=== PATIENT | female | born 1955 | race Hispanic/Latino ===

== ENCOUNTER 2024-05-24 11:11 | Emergency (ER) | payer OTHER ==
--- OUTSIDE RECORDS SUMMARY | 2024-05-24 11:14 | XMS REPORT | Continuity of Care Document ---
Author Name Unknown Address [address] [facility] [address] [place] [address] [facility] thconnect Address [address] [facility] [address] [place] [address] Care Team Providers Care Director Of Strategic Programs Name Role Phone Pcp, Patient Does Not Have A Primary Care Physic lauren Urvashi Barfield PA-C Attending Clinician [phone] Nico Young MD Attending Clinician [phone] NICO YOUNG Attending Clinician Unavailable NICO YOUNG Attending Clinician Unavailable NICO YOUNG Attending Clinician Unavailable Catia Corey RN Attending Clinician Unavailab Jess Lux Attending Clinician [phone] JESS MCGOWAN Attending Clinician Unavailable JESS MCGOWAN Attending Clinician Unavailable [facility] Attending Clinician Unavailable KIMBER_GCADEN_Niaa_S Attending Clinician Unavaila joel LAL Attending Clinician Unavailable JESS MCGOWAN Admitting Clinician Unavailable KIMBER_NENA_Niaa_S Admitting Clinician Unavailjenni LAL Admitting Clinician Unavailable Payers Payer Name Policy Type Policy Number Effective Date Expirati on Date Source [facility] [id number] 2023 00:00:00 [facility] [employer] (MEDICARE REPLACEMENT HMO) [id number] 2021 00:00:00 Problems Condition Name Condition Details Condition Category Status Onset Date Resolution Date Last Treatment Date Treating Clinician Comments Source Malignant neoplasm of overlappin g sites of cervix uteri Malignant neoplasm of overlappin g sites of cervix uteri Disease Active 2023-05 2-10 00:00: 00 [facility] Cervical mass Cervical mass Disease Active 2023-05 1-13 00:00: 00 [facility] Female stress incontinen ce Female stress incontinen ce Disease Active 2023-05 0-09 00:00: 00 [facility] Abnormal vaginal bleeding Abnormal vaginal bleeding Disease Active 3-06 00:00: 00 [facility] Hypomagnes emia Hypomagnes emia Disease Active 4-19 00:00: 00 [facility] 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 Disease Active 4-19 00:00: 00 [facility] Pelvic pain Pelvic pain Disease Active 6- 00:00: 00 [facility] Body mass index 40.0-44.9, adult Body mass index 40.0-44.9, adult Disease Recurre nce 0 2-03 00:00: 00 [facility] Pain of both hip joints Pain of both hip joints Disease Active 0 9-15 00:00: 00 [facility] Bilateral knee pain Bilateral knee pain Disease Active 0 9-15 00:00: 00 [facility] Coronary atheroscle rosis of [place] coronary artery Coronary atheroscle rosis of [place] coronary artery Disease Active 0 9-15 00:00: 00 [facility] 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 Disease Recurre nce 0 9-15 00:00: 00 [facility] Benign hypertensi on with chronic kidney disease Benign hypertensi on with chronic kidney disease Disease Active 0 3-09 00:00: 00 [facility] 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 Disease Active 0 3-09 00:00: 00 [facility] 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 Disease Active 3-09 00:00: 00 [facility] Anemia of chronic disease Anemia of chronic disease Disease Active 12-23 00:00: 00 [facility] Chronic low back pain Chronic low back pain Disease Active 12-23 00:00: 00 [facility] Gastro-eso phageal reflux disease without esophagiti s Gastro-eso phageal reflux disease without esophagiti s Disease Active 12-23 00:00: 00 [facility] Dysthymia Dysthymia Disease Active 12-23 00:00: 00 [facility] Generalize d anxiety disorder Generalize d anxiety disorder Disease Active 12-23 00:00: 00 [facility] Mixed hyperlipid emia Mixed hyperlipid emia Disease Active 12-23 00:00: 00 [facility] Morbid obesity Morbid obesity Disease Active 12-23 00:00: 00 [facility] Nicotine dependence Nicotine dependence Disease Active 12-23 00:00: 00 [facility] Allergies, Adverse Reactions, Alerts Allergy Name Allergy Type Status Severity Reaction(s) Onset Date Inactive Date Treating Clinician Comments Source NO KNOWN ALLERGIE S Drug Class Active [facility] Social History Social Habit Start Date Stop Date Quantity Comments Source History of tobacco use 1994-03-24 00:00:00 Cigarette Smoker [facility]arettes smoked current (pack per day) - Reported 2024-03-24 00:00:00 2024-03-24 00:00:00 [facility] Cigarette pack-years 2024-03-24 00:00:00 2024-03-24 00:00:00 [facility] Tobacco use and exposure 2024-03-24 00:00:00 2024-03-24 00:00:00 Smokeless tobacco non-user [facility] Alcoholic beverage intake 2024-03-24 00:00:00 2024-03-24 00:00:00 Current drinker of alcohol (finding) [facility] History of Social function 2024-03-24 00:00:00 2024-03-24 00:00:00 [facility] Alcohol Comment 2024-03-24 00:00:00 2024-03-24 00:00:00 occasionally [facility] Sex assigned at 1955 00:00:00 1955 00:00:00 [facility] Smoking Status Start Date Stop Date Source Tobacco smoking consumption unknown [facility] Smokes tobacco daily 2024-03-24 00:00:00 [facility] Medications Ordered Medication Name Filled Medication Name Start Date Stop Date Current Medication? Ordering Clinician Indication Dosage Frequency Signature (SIG) Comments Components Source ondansetron 8 mg tablet 05-15 00:00: 00 Yes [id number] 8mg Take 1 tablet by mouth every 8 (eight) hours as needed for Nausea and Vomiting (N/V). [facility] ondansetron 8 mg tablet 2023-05- 00:00: 00 05-15 00:00 :00 No [id number] 8mg Take 1 tablet by mouth every 8 (eight) hours as needed for Nausea and Vomiting (N/V). [facility] oxyCODONE 5 mg immediate release tablet 2023-05- 00:00: 00 04-29 05:59 :00 Yes [id number] 5mg Take 1 tablet by mouth every 4 (four) hours as needed for Pain (scale 7-10) for up to 7 days. Indication s: chronic pain, cancer related pain [facility] fludeoxyglu cose F-18 (FDG) injection 10 millicurie 2023-05 15:20: 00 04-02 15:15 :00 No [id number] 10mCi 10 millicurie , Intravenou s, ONCE, 1 dose, On Danyelle 04/02/24 at 0930, Routine [facility] gadobenate dimeglumine (MULTIHANCE -20 mL) injection 20 mL 2023-05 21:30: 00 03-25 21:22 :00 No [id number] 20mL 20 mL, Intravenou s, ONCE, 1 dose, On Sat03/25/24 at 1530, Routine [facility] LORazepam (ATIVAN) tablet 2023-05 19:15: 00 03-26 10:04 :56 No PRN, Starting on Sat03/25/24 at 1315, Until Sat03/26/24 at 0404, Routine, Intra-op [facility] multivit-mi n/ferrous fumarate (MULTI VITAMIN ORAL) 2023-05 16:59: 36 Yes 1{tbl} Take 1 tablet by mouth in the morning. [facility] Cyanocobala min 1,000 mcg tablet 2023-05 16:59: 36 04-21 00:00 :00 No 2000ug Take 2 tablets by mouth in the morning. [facility] hyoscyamine 0.125 mg tablet 2023-05 16:59: 36 04-21 00:00 :00 No .125mg Take 1 tablet by mouth 4 (four) times daily as needed. 2 tablets QiDprn [facility] Iron, Carbonyl 45 mg Tab 2023-05 16:59: 36 04-21 00:00 :00 No 45mg Take 45 mg by mouth in the morning. [facility] metroNIDAZO LE 500 mg tablet 2023-05 00:00: 00 04-21 00:00 :00 No 500mg Take 1 tablet by mouth every 12 (twelve) hours. [facility] levothyroxi ne 25 mcg tablet 07 00:00: 00 Yes 25ug Take 1 tablet by mouth in the morning. [facility] atorvastati n 10 mg tablet 10-15 00:00: 00 Yes 10mg Take 1 tablet by mouth at bedtime. [facility] pioglitazon e 30 mg tablet 10-15 00:00: 00 Yes 30mg Take 1 tablet by mouth in the morning. [facility] traMADoL 50 mg tablet 10-15 00:00: 00 Yes 50mg Take 1 tablet by mouth 2 (two) times daily as needed. [facility] gabapentin 300 mg capsule 10-15 00:00: 00 10-16 04:59 :00 No 600mg Take 2 capsules by mouth in the morning and 2 capsules in the evening. [facility] DULoxetine 30 mg capsule 10-15 00:00: 00 10-16 04:59 :00 No 30mg Take 1 capsule by mouth in the morning. [facility] metFORMIN 500 mg tablet 09-12 00:00: 00 Yes 1000mg Take 2 tablets by mouth in the morning and 2 tablets in the evening. [facility] benzalkoniu m chloride 0.13 % Towl 07-16 00:00: 00 Yes Dispense One Glucometer to Check Blood Glucose TID to monitor DM. [facility] hydrOXYzine 25 mg capsule 07-16 00:00: 00 Yes 25mg Take 1 capsule by mouth as needed. Daily prn [facility] blood sugar diagnostic (YOKASTA BLOOD GLUCOSE TEST STRIP MISC) 07-16 00:00: 00 Yes Dispense 100 Test Strips to Check Blood Glucose TID to monitor DM. [facility] naproxen (NAPROSYN) 500 mg tablet 09-08 00:00: 00 04-21 00:00 :00 No [id number] 500mg Take 1 tablet by mouth 2 (two) times daily with meals. [facility] Immunizations Ordered Immunization Name Filled Immunization Name Date Status Comments Source SARS-COV-2 COVID-19 MODERNA 12+ YRS VACCINE 2020-08-07 00:00:00 Completed [facility] SARS-COV-2 COVID-19 MODERNA 12+ YRS VACCINE 2020-07-10 00:00:00 Completed [facility] Vital Signs Vital Name Observation Time Observation Value Comments S meg Systolic blood pressure 2024-04-21 17:23:00 121 mm[Hg] [facility] Diastolic blood pressure 2024-04-21 17:23:00 68 mm[Hg] [facility] Heart rate 2024-04-21 17:23:00 94 /min [facility] Body temperature 2024-04-21 17:23:00 36.06 Marilee [facility] Respiratory rate 2024-04-21 17:23:00 18 /min [facility] Body height 2024-04-21 17:23:00 153.8 cm [facility] Body weight 2024-04-21 17:23:00 95.618 kg [facility] BMI 2024-04-21 17:23:00 40.42 kg/m2 [facility] Oxygen saturation in Arterial blood by Pulse oximetry 2024-04-21 17:23:00 97 /min [facility] Systolic blood pressure 2024-03-25 19:12:00 121 mm[Hg] [facility] Diastolic blood pressure 2024-03-25 19:12:00 75 mm[Hg] [facility] Heart rate 2024-03-25 19:12:00 94 /min [facility] Respiratory rate 2024-03-25 19:12:00 14 /min [facility] Oxygen saturation in Arterial blood by Pulse oximetry 2024-03-25 19:12:00 94 /min [facility] Systolic blood pressure 2024-03-24 16:34:00 116 mm[Hg] [facility] Diastolic blood pressure 2024-03-24 16:34:00 64 mm[Hg] [facility] Heart rate 2024-03-24 16:34:00 92 /[facility] 2024-03-24 16:34:00 36.06 Marilee [facility] Respiratory rate 2024-03-24 16:34:00 16 /min [facility] Body height 2024-03-24 16:34:00 153.8 cm [facility] weight 2024-03-24 16:34:00 100.109 kg [facility] BMI 2024-03-24 16:34:00 42.32 kg/m2 [facility] Oxygen saturation in Arterial blood by Pulse oximetry 2024-03-24 16:34:00 94 /min [facility] Procedures Procedure Date / Time Performed Performing Clinicia n Source PET TUMOR IMAGING SKULL TO THIGH 2024-04-02 16:50:00 Monica [facility] PET TUMOR IMAGING SKULL TO THIGH 2024-04-02 16:50:00 Monica [facility] POCT GLUCOSE (AUTOMATED) 2024-04-02 15:03:00 Monica [facility] MR PELVIS W WO CONTRAST 2024-03-25 21:31:00 Monica [facility] SURGICAL PATHOLOGY EXAM 2024-03-24 18:02:00 Peculiar, [facility] Encounters Start Date/Time End Date/Time Encounter Type Admission Type Attending Clinicians Care Facility Care Department Encounter ID Source 2024-05-15 00:00:00 2024-05-15 13:15:41 Refill Urvashi Barfield [facility] ([facility]) 1.2.840.114 350.1.13.10 4.2.7.2.686 [id number] [facility] 2024-04-24 00:00:00 2024-04-24 11:34:33 Case Management Urvashi Barfield [facility] ([facility]) 1.2.840.114 350.1.13.10 4.2.7.2.686 [id number] [facility] 2024-04-21 00:00:00 2024-04-21 16:24:16 Case Management Urvashi Barfield [facility] ([facility]) 1.2.840.114 350.1.13.10 4.2.7.2.686 [id number] [facility] 2024-04-21 11:00:00 2024-04-21 11:30:00 Office Visit Nico Young [facility] ([facility]) 1.2.840.114 350.1.13.10 4.2.7.2.686 [id number] [facility] 2024-04-21 11:00:00 2024-04-21 11:00:00 Outpatient R NICO YOUNG, NICO CHAHAL [facility] [id number] [facility] 2024-04-13 00:00:00 2024-04-13 09:27:54 Telephone Catia Corey Emily M [facility] ([facility]) 1.2.840.114 350.1.13.10 4.2.7.2.686 [id number] [facility] 2024-04-03 00:00:00 2024-04-03 10:45:33 [facility] 1.2.840.114 350.1.13.10 4.2.7.2.686 [id number] [facility] 2024-04-02 08:37:04 2024-04-02 23:59:00 Hospital Encounter Jess Mcgowan [facility] ([facility]) 1.2.840.114 350.1.13.10 4.2.7.2.686 [id number] [facility] 2024-04-02 08:36:57 2024-04-02 08:36:57 Hospital Encounter Jess Mcgowan [facility] ([facility]) 1.2.840.114 350.1.13.10 4.2.7.2.686 [id number] [facility] 2024-03-25 13:00:49 2024-03-25 23:59:00 Outpatient R JESS MCGOWAN [facility]ATH[facility] [id number] [facility] 2024-03-25 13:00:49 2024-03-25 23:59:00 Hospital Encounter Jess Mcgowan [facility] ([facility]) 1.2.840.114 350.1.13.10 4.2.7.2.686 [id number] [facility] 2024-03-24 13:30:00 2024-03-24 13:30:00 Office Visit Nico Young [facility] ([facility]) 1.2.840.114 350.1.13.10 4.2.7.2.686 [id number] [facility] 2024-03-24 13:00:00 2024-03-24 13:15:00 Yeast Pumper Visit [facility] Nico Young [facility] ([facility]) 1.2.840.114 350.1.13.10 4.2.7.2.686 [id number] [facility] 2024-03-24 13:30:00 2024-03-24 12:00:14 Outpatient NICO BRADY GWYN RICHARDSON, GWYN [facility] [id number] [facility] 2023-08-16 00:00:00 2023-08-16 00:00:00 Outpatient GC_GCBZW_Ka diyala_S PRIV PRIV [id number] [facility] 2023-08-15 00:00:00 2023-08-15 00:00:00 Outpatient GC_GCBZW_Ka diyala_S PRIV PRIV [id number] [facility] 2023-07-19 00:00:00 2023-07-19 00:00:00 Outpatient GC_GCBZW_Ka diyala_S PRIV PRIV [id number] [facility] 2021-12-14 00:00:00 2021-12-14 00:00:00 Outpatient YUMIKOEK_JORDAN LINDER NMLYNETTE [facility] [id number] [facility] 2021-11-24 03:35:00 2021-11-24 03:35:00 Outpatient DMG DMG [id number] [facility] 2021-11-24 00:00:00 2021-11-24 00:00:00 Outpatient DMG DMG [id number] [facility] 2021-06-12 12:00:00 2021-06-12 12:00:00 [place] [facility] [id number] [facility] Results Test Description Test Time Test Comments Results Result Co mments Source [facility]
[2024-05-24] MEDS ORDERED: NA CHLORIDE 0.9% 250 ML ONE ×2 (11:50→14:22)
[2024-05-24 11:55] LABS: Absolute Basophils 0.1 K/uL (0-0.5); Absolute Eosinophils 0.1 K/uL (0-0.5); Absolute Lymphocytes (CBC) 1.4 K/uL (0.7-4.9); Absolute Monocytes 0.9 K/uL (0.1-1.3); Absolute Neutrophil 21.2 K/uL (1.8-8.0); Basophils % 0.3 % (0-1.3); Eosinophils % 0.3 % (0-4.4); Hematocrit 22.5 % (36.0-45.0); Hemoglobin 7.3 g/dL (12.0-15.0); Lymphocytes % 5.9 % (15.3-44.8); MCHC 32.3 g/dL (32.0-36.0); MCV 80.6 fL (80-100); MPV 7.5 fL (7.6-11.3); Monocytes % 3.9 % (3.3-12.3); Neutrophils % 89.6 % (41.7-73.7); Platelets 511 thou/uL (152-406); Red Cell Distribution Width 17.2 % (12.1-15.2)
[2024-05-24 12:10] LABS: ALT/SGPT < 14 U/L (13-56); AST/SGOT 27 U/L (15-37); Albumin 1.9 g/dL (3.4-5.0); Albumin/Globulin Ratio 0.4 (1.1-1.8); Alkaline Phosphatase 97 U/L (45-117); Anion Gap 13.8 mEq/L (5.0-15.0); BUN Blood Urea Nitrogen 36 mg/dL (7-18); Bicarbonate 19 mEq/L (21-32); Bilirubin Direct 0.2 mg/dL (0-0.2); Bilirubin Indirect, Calculated 0.3 mg/dL (0.2-0.8); Bilirubin Total 0.5 mg/dL (0.2-1.0); Globulin 4.9 g/dL (2.3-3.5); Glomerular Filtration Rate 16 ml/min (=/>90); Glucose Level 115 mg/dL (74-106); Potassium 4.8 mEq/L (3.5-5.1); Protein, Total 6.8 g/dL (6.4-8.2); Sodium Level 130 mEq/L (136-145)
[2024-05-24] MEDS ORDERED: NA CHLORIDE 0.9% 100 ML ONE (13:24)
[2024-05-24] MEDS ORDERED: PIPERACIL/TAZO 3.375 GM VIAL IV ONE (13:24)
[2024-05-24 13:26] LABS: Blood Morphology Comment NOTED (NOT SEEN); Differential Total Cells Count 100; Lymphocytes 7 % (15-42); Monocytes 2 % (0-10); Platelet Estimate INCR; Platelets Clumped MANY; Rouleau NOTED; Segmented Neutrophils 91 % (40-80)
--- NOTE | 2024-05-24 13:28 | RAD REPORT ---
EXAMINATION: CT Abdomen Pelvis Wo Contrast CLINICAL INDICATION: Female, 68 years old. vaginal bleeding, known stage III cervical cancer, abd dora n TECHNIQUE: CT abdomen and pelvis was performed, without IV contrast, as per department protocol. Axia l, sagittal and coronal reconstructions were obtained. One or more of the following dose reduction techniques were used: Automated exposure control, adjustment of the mA and kV according to the patien t size, and iterative reconstruction. Unless otherwise specified, incidental findings do not require dedicated imaging follow-up. COMPARISON: No prior exam. FINDINGS: The lack of intravenous contrast limits the sensitivity of this exam for evaluation of solid visceral organs, vascular structures, and retroperitoneum. LOWER CHEST: The visualized lung bases are clear. LIVER: Normal in size and contour. No focal lesion. BILIARY SYSTEM: No suspicious abnormalities. SPLEEN: Normal size. No focal lesion. PANCREAS: No mass, ductal dilation, or austyn-pancreatic fluid. ADRENALS: Normal; no mass. KIDNEYS AND URETERS: Normal size and contour. No hydronephrosis. URINARY BLADDER: Pericystic fat stranding asymmetric towards the right pelvis. Decompressed bladder l umen limits evaluation. GASTROINTESTINAL TRACT: No evidence of bowel obstruction, significant free fluid, free air or abscess . APPENDIX: Normal appendix. LYMPH NODES: No lymphadenopathy. MUSCULOSKELETAL: No acute or suspicious osseous abnormality. ADDITIONAL FINDINGS: Bulky mass involving the cervix and lower uterine segment, with heterogeneous co mponents of gas centrally. The mass measures 10.4 x 8.3 x 9.4 cm in greatest CC, AP, and transverse dimensions. Heterogeneous fluid and locules of gas extending along the endometrial cavity, reaching c lose to the anterior serosal surface of the uterus. Please see sagittal image 89 series 203. Asymmetric fat stranding also involves the right adnexal region with few locules of gas involving the right adnexal structures including a small air-fluid level, see axial image 87 series 201 IMPRESSION: Pericystic fat stranding extending to the right adnexal region, where few locules of gas are present. Locules of gas are also present along the endometrial cavity extending towards the anterior serosal surface. Findings suggest combination of cystitis and pelvic inflammatory disease. Bulky mass at the 10.4 cm in greatest dimension involving the cervix and lower uterine segment, deidra tible with known diagnosis of cervical malignancy. Distal colonic diverticulosis. THIS REPORT CONTAINS FINDINGS THAT MAY BE CRITICAL TO PATIENT CARE. The findings were verbally commun icated via telephone to Lewis Betancourt MD on 05/24/2024 1:25 PM.
--- NOTE | 2024-05-24 13:32 | ER ---
Nurse's Notes [facility] Name: Christa Jackson Age: 68 yrs Sex: Female : 1955 Arrival Date: 05/24/2024 Time: 11:11 Bed 3 Private MD: Diagnosis: Abnormal uterine and vaginal bleeding, unspecified;Anemia, unspecified;Female pelvic inflammatory disease, unspecified Presentation: 05/24 11:11 Acuity: NOMAN 2 aa5 11:11 Chief complaint: EMS states: diagnosed with cervical cancer x 2 months ago, normally aa5 has intermittent vaginal spotting but reports heavy vaginal bleeding with clots since last night. EMS reports BP 70/30, HR 110 upon scene arrival and BP increased after 600mls NS bolus, pt was also administered Ketamine 10 mg IVP. 11:11 Coronavirus screen: At this time, the client does not indicate any symptoms associated aa5 with coronavirus-19. Ebola Screen: Patient denies travel to an Ebola-affected area in the 21 days before illness onset. Initial Sepsis Screen: Does the patient meet any 2 criteria? HR > 90 bpm. Does the patient have a suspected source of infection? No. Patient's initial sepsis screen is negative. Risk Assessment: Do you want to hurt yourself or someone else? Patient reports no desire to harm self or others. Onset of symptoms was May 23, 2023. 11:11 Method Of Arrival: [facility]: [facility] aa5 Historical: - Allergies: 11:11 No Known Allergies; aa5 - PMHx: 11:11 Depression; Diabetes - IDDM; High Cholesterol; Hypertension; Cervical cancer (stage 3) aa5 (Hypertension); - Immunization history:: Adult Immunizations unknown. - Infectious Disease History:: Denies. - Social history:: Smoking status: Patient reports the use of cigarette tobacco products, denies chronic smoking, but will smoke occasionally. - Family history:: not pertinent. - Hospitalizations: : No recent hospitalization is reported. Screenin:11 [facility] ED Fall Risk Assessment (Adult) History of falling in the last 3 months, aa5 including since admission No falls in past 3 months (0 pts) Confusion or Disorientation No (0 pts) Intoxicated or Sedated No (0 pts) Impaired Gait No (0 pts) Mobility Assist Device Used No (0 pt) Altered Elimination No (0 pt) Score/Fall Risk Level 0 - 2 = Low Risk Oriented to surroundings, Maintained a safe environment, Educated pt \T\ family on fall prevention, incl call for assistance when getting out of bed. Abuse screen: Denies threats or abuse. Nutritional screening: No deficits noted. Tuberculosis screening: No symptoms or risk factors identified. Assessment: 11:11 General: Appears uncomfortable, Behavior is calm, cooperative. Pain: Complains of pain aa5 in right lower quadrant and left lower quadrant Pain currently is 9 out of 10 on a pain scale. Quality of pain is described as sharp, Is continuous. Neuro: Level of Consciousness is awake, alert, obeys commands, Oriented to person, place, time, situation, Reports generalized weakness. . Cardiovascular: Heart tones S1 S2 present Rhythm is regular. Respiratory: Airway is patent Respiratory effort is even, unlabored, Respiratory pattern is regular, symmetrical, Breath sounds are clear bilaterally. GI: Abdomen is round Bowel sounds present X 4 quads. Abdomen is tender to palpation in right lower quadrant and left lower quadrant. : Reports vaginal bleeding that is with clots, heavy flow since last night. Moderate vaginal bleeding noted at this time. EENT: No signs and/or symptoms were reported regarding the EENT system. Derm: Skin is dry, Skin is pale, Skin temperature is warm. Musculoskeletal: Range of motion: intact in all extremities. 11:58 Reassessment: RBC consent signed by daughter . aa5 12:45 Reassessment: RBC unit #1 emergency release blood received and infusion started at aa5 1202, started RBC unit at 50mls/hr and slowly increased to current rate of 500mls/hr at this time, pt tolerating well, no adverse reactions noted or reported. . 12:51 Reassessment: Patient states feeling better. Pt back from CT scan, accompanied by me aa5 and air conditioning technician. Pt's skin color has improved. . 13:02 Reassessment: RBC unit # 1 completed, see blood transfusion record for more information aa5 and complete VS. . 14:20 Reassessment: Patient is alert, oriented x 3, equal unlabored respirations, skin aa5 warm/dry/pink. 15:26 Reassessment: No changes from previously documented assessment. Patient and/or family ll1 updated on plan of care and expected duration. Pain level reassessed. 15:54 Reassessment: 2nd unit PRBC complete. iw 16:20 Reassessment: Patient is alert, oriented x 3, equal unlabored respirations, skin aa5 warm/dry/pink. Vital Signs: 11:11 BP 100 / 63; Pulse 100; Resp 18 S; Temp 97.3(TE); Pulse Ox 99% on R/A; Weight 97.07 kg; aa5 11:20 BP 117 / 69; Pulse 99; Resp 18 S; Pulse Ox 100% on R/A; aa5 11:35 BP 79 / 53; Pulse 86; aa5 11:38 BP 88 / 50; Pulse 87; aa5 11:45 BP 82 / 56; Pulse 88; aa5 11:50 BP 84 / 66; Pulse 86; aa5 11:55 BP 93 / 54; Pulse 86; Resp 16 S; Pulse Ox 100% on R/A; aa5 12:00 BP 84 / 56; Pulse 83; Resp 16 S; Temp 98.3(O); Pulse Ox 100% on R/A; aa5 12:50 BP 112 / 73; rn 12:51 BP 112 / 73; Pulse 78; Resp 19 S; Pulse Ox 97% on R/A; aa5 13:02 BP 94 / 53; Pulse 78; Resp 18 S; Temp 98.4(O); Pulse Ox 100% on R/A; aa5 14:21 BP 112 / 72; Pulse 79; Resp 17 S; Temp 96.3(TE); Pulse Ox 100% on R/A; aa5 15:52 BP 109 / 64; Pulse 75; Resp 19 S; Pulse Ox 96% on R/A; aa5 16:05 BP 102 / 63; Pulse 70; Resp 16 S; Temp 98(O); Pulse Ox 98% on R/A; aa5 11:38 notified of hypotension aa5 ED Course: 11:11 Arm band placed on. aa5 11:11 Patient has correct armband on for positive identification. Placed in gown. Bed in low aa5 position. Call light in reach. Side rails up X2. Client placed on continuous cardiac and pulse oximetry monitoring. NIBP monitoring applied. shelter monitor on. Pulse ox on. NIBP on. 11:22 Patient arrived in ED. aa5 11:27 Lewis Betancourt MD is Attending Physician. rn 11:31 Donita Nichols, RN is Primary Nurse. aa5 11:35 Maintain EMS IV. Gauge \T\ site: 22G R wrist and 22G to L FA . Flushed with 10 mL NS. aa5 11:37 Triage completed. aa5 11:40 Initial lab(s) drawn, by me, sent to lab. T\T\S collected, blood band applied to patient. aa5 12:46 CT Abd/Pelvis - Without Contrast In Process Unspecified. EDMS 13:31 CALLING [facility] TALKED TO: MAME. sp 13:47 no beds at any [facility] denied transfer. sp 13:48 called [facility] for transfer talked to: Rick. estes 14:15 called for DOC to DOC. sp 14:16 First set of blood cultures drawn Lactate drawn and sent to lab. Pt is a hard stick aa5 unable to collect blue top and second set of blood cultures, MD aware. 14:20 Inserted saline lock: 22 gauge in left upper arm, using aseptic technique. Flushed with aa5 10 mL NS. 16:[address] mily jones accepted pt to [facility] 1446 admin approval by Andrae estes [facility] bed 1427 report number [phone] faxed demographics-- [facility] to transport pt. 16:20 No provider procedures requiring assistance completed. Patient transferred, IV remains aa5 in place. Administered Medications: 14:22 Drug: Piperacillin-Tazobactam IVPB 3.375 grams IVPB once over 60 mins; (mix in NS 100 ll1 mL) Route: IVPB; Infused Over: 60 mins; Site: left upper arm; 15:22 Follow up: IV Status: Completed infusion; IV Intake: 100ml aa5 14:24 Drug: NS 0.9% IV 1000 ml IV at 1000 ml once; to be given as a bolus over 60 minutes ll1 Route: IV; Rate: 1000 ml; Site: left upper arm; 16:22 Follow up: IV Status: Completed infusion; IV Intake: 1000ml aa5 15:24 Drug: fentaNYL (PF) IVP 25 mcg IVP once Route: IVP; Site: left forearm; aa5 15:30 Follow up: Response: No adverse reaction aa5 Medication: 16:22 VIS not applicable for this client. aa5 Intake: 15:22 IV: 100ml; Total: 100ml. aa5 16:22 IV: 1000ml; Total: 1100ml. aa5 Outcome: 13:32 ER care complete, transfer ordered by . rn 16:20 [place] by ground [facility] [place] [facility] [facility] [place]. aa5 X-rays sent w/ patient. Note: Report given to [facility] 16:20 Condition: stable 16:20 Discharge instructions given to patient, family, Instructed on the need for transfer, Demonstrated understanding of instructions, 16:25 Patient left the ED. aa5 Signatures: Dispatcher [employer] EDMS Marlene Gramajo Irene, RN RN iw Lewis Betancourt MD MD rn Calderon, Audri RN RN aa5 Fanny Mendez RN RN ll1 Herb Amador RN RN rs5 Corrections: (The following items were deleted from the chart) 14:50 14:16 First set of blood cultures drawn Lactate drawn and sent to lab. Pt is a hard aa5 stick unable to collect blue top and second set of blood cultures, aware. rs5 19:25 11:11 Social history: Smoking status: Patient reports the use of cigarette tobacco aa5 products, denies chronic smoking, but will smoke occasionally, aa5
--- NOTE | 2024-05-24 13:32 | EDPHYS ---
Physician Documentation [facility] Name: Christa Jackson Age: 68 yrs Sex: Female : 1955 Arrival Date: 05/24/2024 Time: 11:11 Bed 3 Private MD: ED Physician Lewis Betancourt HPI: 05/24 12:50 This 68 yrs old Female presents to ER via EMS with complaints of Vaginal rn Bleeding. 12:50 The patient presents with vaginal bleeding that is. Onset: The symptoms/episode rn began/occurred 3 day(s) ago. Modifying factors: The symptoms are alleviated by nothing, the symptoms are aggravated by nothing. Severity of symptoms: At their worst the symptoms were moderate, in the emergency department the symptoms are unchanged. The patient has experienced similar episodes in the past. Patient reports has known stage III cervical cancer, bled initially at diagnosis, slow bleeding since then but for the last 3 days heavier bleeding with clots. Reports feels dizziness and lightheaded. Has not yet started treatment. All of workup and diagnosis was at [facility] in [place]. Historical: - Allergies: 11:11 No Known Allergies; aa5 - PMHx: 11:11 Depression; Diabetes - IDDM; High Cholesterol; Hypertension; Cervical cancer (stage 3) aa5 (Hypertension); - Immunization history:: Adult Immunizations unknown. - Infectious Disease History:: Denies. - Social history:: Smoking status: Patient reports the use of cigarette tobacco products, denies chronic smoking, but will smoke occasionally. - Family history:: not pertinent. - Hospitalizations: : No recent hospitalization is reported. ROS: 12:50 Constitutional: Negative for fever, chills, and weight loss, Cardiovascular: Negative rn for chest pain, palpitations, and edema, Respiratory: Negative for shortness of breath, cough, wheezing, and pleuritic chest pain, Abdomen/GI: Positive for lower abdominal cramping : Positive for vaginal bleeding MS/Extremity: Negative for injury and deformity, Neuro: Positive for generalized weakness Exam: 12:50 Constitutional: Appears pale, no acute distress Cardiovascular: Regular rate and rn rhythm. No pulse deficits. Respiratory: No increased work of breathing, no retractions or nasal flaring. Abdomen/GI: Soft, non-tender, with normal bowel sounds. No distension or tympany. No guarding or rebound. No evidence of tenderness throughout. MS/ Extremity: Pulses equal, no cyanosis. Neurovascular intact. Full, normal range of motion. Equal circumference. Neuro: Awake and alert, GCS 15, oriented to person, place, time, and situation. 18:00 ECG was reviewed by the Attending Physician. rn Vital Signs: 11:11 BP 100 / 63; Pulse 100; Resp 18 S; Temp 97.3(TE); Pulse Ox 99% on R/A; Weight 97.07 kg; aa5 11:20 BP 117 / 69; Pulse 99; Resp 18 S; Pulse Ox 100% on R/A; aa5 11:35 BP 79 / 53; Pulse 86; aa5 11:38 BP 88 / 50; Pulse 87; aa5 11:45 BP 82 / 56; Pulse 88; aa5 11:50 BP 84 / 66; Pulse 86; aa5 11:55 BP 93 / 54; Pulse 86; Resp 16 S; Pulse Ox 100% on R/A; aa5 12:00 BP 84 / 56; Pulse 83; Resp 16 S; Temp 98.3(O); Pulse Ox 100% on R/A; aa5 12:50 BP 112 / 73; rn 12:51 BP 112 / 73; Pulse 78; Resp 19 S; Pulse Ox 97% on R/A; aa5 13:02 BP 94 / 53; Pulse 78; Resp 18 S; Temp 98.4(O); Pulse Ox 100% on R/A; aa5 14:21 BP 112 / 72; Pulse 79; Resp 17 S; Temp 96.3(TE); Pulse Ox 100% on R/A; aa5 15:52 BP 109 / 64; Pulse 75; Resp 19 S; Pulse Ox 96% on R/A; aa5 16:05 BP 102 / 63; Pulse 70; Resp 16 S; Temp 98(O); Pulse Ox 98% on R/A; aa5 11:38 MD notified of hypotension aa5 Procedures: 18:01 Performed Vaginal packing performed by myself, applied Surgicel to cervix as well as rn used Kerlix to pack vagina. Tolerated well. Premedicated with fentanyl 25 mcg. MDM: 11:27 Medical Screening Exam initiated rn 13:30 Differential diagnosis: Worsening cervical cancer, pelvic inflammatory disease, rn cystitis, endometritis. Data reviewed: vital signs, nurses notes, lab test result(s), radiologic studies, CT scan, and as a result, I will admit patient. Consideration of Admission/Observation Patient was admitted/placed on observation. Escalation of care including admission/observation considered. Counseling: I had a detailed discussion with the patient and/or guardian regarding the historical points, exam findings, and any diagnostic results supporting the discharge/admit diagnosis, lab results, radiology results, the need for further work-up and treatment in the hospital, the need to transfer to another facility, for higher level of care, [facility] does not immediately have the required specialist. Response to treatment: the patient's symptoms have mildly improved after treatment. ED course: I personally spent 35 minutes engaged in work directly related to the individual patient's care. This does not include any time spent performing procedures. The patient has been deemed critically ill because of acute vaginal bleeding requiring stat emergency blood transfusion, resuscitation due to hypotension and organization of transfer.. 05/24 11:34 Order name: CBC with Diff; Complete Time: 13:29 05/24 11:34 Order name: Basic Metabolic Panel; Complete Time: 12:11 05/24 11:34 Order name: Type And Screen 05/24 11:34 Order name: LFT's; Complete Time: 12:11 05/24 11:53 Order name: LAB Add On sp 05/24 11:57 Order name: Packed RBC Leukored [facility] 05/24 12:07 Order name: Manual Differential; Complete Time: 13:29 [facility] 05/24 13:15 Order name: ABO/RH no charge; Complete Time: 13:19 [facility] 05/24 13:20 Order name: Blood Culture Adult (2) 05/24 13:20 Order name: Lactate w/ 2H reflex if indic.; Complete Time: 14:45 rn 05/24 12:11 Order name: CT Abd/Pelvis - Without Contrast; Complete Time: 13:29 rn 05/24 11:34 Order name: EKG; Complete Time: 11:35 rn 05/24 11:34 Order name: IV Start; Complete Time: 14:50 rn 05/24 11:34 Order name: EKG - Nurse/Tech; Complete Time: 13:27 rn 05/24 11:34 Order name: Cardiac monitoring; Complete Time: 11:36 rn 05/24 11:34 Order name: O2 Sat Monitoring; Complete Time: 11:36 rn 05/24 12:11 Order name: Transfuse; Complete Time: 12:23 rn 05/24 13:20 Order name: IV Saline Lock - Large Bore; Complete Time: 13:23 rn 05/24 13:20 Order name: Labs collected and sent; Complete Time: 13:23 rn 05/24 13:20 Order name: O2 Per Protocol; Complete Time: 13:23 rn 05/24 13:20 Order name: Vital Signs; Complete Time: 13:23 rn 05/24 15:08 Order name: Pelvic Exam Setup; Complete Time: 15:09 rn EC:00 Rate is 84 beats/min. Rhythm is regular. QRS [place] is Normal. LA interval is normal. QRS rn interval is normal. QT interval is normal. No Q waves. T waves are Normal. No ST changes noted. Clinical impression: Normal ECG. Interpreted by me. Reviewed by me. Administered Medications: 14:22 Drug: Piperacillin-Tazobactam IVPB 3.375 grams IVPB once over 60 mins; (mix in NS 100 ll1 mL) Route: IVPB; Infused Over: 60 mins; Site: left upper arm; 15:22 Follow up: IV Status: Completed infusion; IV Intake: 100ml aa5 14:24 Drug: NS 0.9% IV 1000 ml IV at 1000 ml once; to be given as a bolus over 60 minutes ll1 Route: IV; Rate: 1000 ml; Site: left upper arm; 16:22 Follow up: IV Status: Completed infusion; IV Intake: 1000ml aa5 15:24 Drug: fentaNYL (PF) IVP 25 mcg IVP once Route: IVP; Site: left forearm; aa5 15:30 Follow up: Response: No adverse reaction aa5 Disposition Summary: 05/24/24 13:32 Transfer Ordered Notes: [facility] Reason: Higher level of care rn Condition: Stable rn Problem: new rn Symptoms: have improved rn Accepting Physician: (05/24/24 16:25) aa5 Diagnosis - Abnormal uterine and vaginal bleeding, unspecified rn - Anemia, unspecified rn - Female pelvic inflammatory disease, unspecified rn Forms: - Medication Reconciliation Form rn - SBAR form tangled yarn spool straightener time excluding procedures: 13:30 Critical care time: Bedside Care: 35 minutes. Total time: 35 minutes rn Signatures: Dispatcher [employer] EDMS AvilaMarlene Lewis Ritter MD MD rn Calderon, Audri, RN RN aa5 Fanny Mendez RN RN ll1 Corrections: (The following items were deleted from the chart) 12:12 12:12 Abdomen Pelvis Wo Con+CT.RAD.BRZ ordered. EDMS EDMS 12:23 11:35 Abdomen Pelvis W Con+CT.RAD.BRZ ordered. EDMS EDMS 13:23 13:20 Accucheck ordered. rn iw 13:38 13:38 LAB ADD ON+C.LAB.BRZ ordered. EDMS EDMS 16:25 12:06 Misc. Order ordered. meera aa5 16:25 13:32 rn aa5 19:25 11:11 Social history: Smoking status: Patient reports the use of cigarette tobacco aa5 products, denies chronic smoking, but will smoke occasionally, aa5
[2024-05-24] MEDS ORDERED: NA CHLORIDE 0.9% 1,000 ML ONE ×2 (14:00→14:22)
[2024-05-24] MEDS ORDERED: FENTANYL CITR 100 MCG/2 ML ONE (15:15)
[2024-05-26 16:08] VITALS: BP 112/73; TEMP 97.3; O2SAT 97
--- NOTE | 2024-05-28 12:11 | EKG ---
Test Date: 2024-05-24 Test Time: 12:28:23 Pouncing Lathe Operator: YUE MEASUREMENT RESULTS: Intervals: Rate: 84 IN: 144 QRSD: 72 QT: 356 QTc: 420 [place]: P: 4 IN: 144 QRS: 13 T: 8 INTERPRETIVE STATEMENTS: Normal sinus rhythm Normal ECG Compared to ECG 09/23/2015 12:03:22 No significant changes Electronically Signed On 05-28-24 12:08:46 CHILD CARE ATTENDANT by Delvin Romeo
== END 2024-05-24 16:25 | disposition short-term general hospital (02) ==
LOC: ER 11:11
DX: N93.9 Abnormal uterine and vaginal bleeding, unspecified (principal); N73.9 Female pelvic inflammatory disease, unspecified; D64.9 Anemia, unspecified; C53.9 Malignant neoplasm of cervix uteri, unspecified; I10 Essential (primary) hypertension; E11.9 Type 2 diabetes mellitus without complications; F17.210 Nicotine dependence, cigarettes, uncomplicated
CPT/HCPCS: 96365; 96361; 93005; 87040; 85025; 80048; 86900; 86850; 86901; 80076; 83605; 86920 ×2; 74176; 96375; 99285; J2543; J3010; P9016 ×2; J7050 ×2; J7030 ×2

== ENCOUNTER 2024-06-11 14:32 | Inpatient (IN) | payer OTHER ==
--- OUTSIDE RECORDS SUMMARY | 2024-06-11 14:37 | XMS REPORT | Clinical Summary ---
Author Name Unknown Organization [facility] Address [address] [place] [address] Care Team Providers Care Big Data Admin Name Role Phone Unavailable Primary Care Provider Unavailabl e Allergies No known active allergies Medications * This document contains information received from the source organization and may not represent a complete record from that organization. atorvastatin (LIPITOR) 10 mg tablet Take 1 tablet (10 mg) by mouth at bedtime. 4 05/01/20 25 Active levothyroxine (SYNTHROID, LEVOTHROID) 25 mcg tablet Take 1 tablet (25 mcg) by mouth daily. 4 Active metFORMIN (GLUCOPHAGE) 500 mg tablet Take 2 tablets (1,000 mg) by mouth 2 (two) times a day with meals. 4 Active escitalopram (LEXAPRO) 10 mg tablet Take 1 tablet (10 mg) by mouth daily. Active ondansetron (ZOFRAN) 8 mg tablet Take 1 tablet (8 mg) by mouth every 8 (eight) hours as needed for nausea or vomiting. Active cyanocobalamin (vitamin B-12) 1000 mcg tablet Take 1 tablet (1,000 mcg) by mouth daily. Active hyoscyamine (HYOSYNE) 0.125 mg/5 mL elix elixir Take 5 mL (0.125 mg) by mouth every 6 (six) hours as needed for bladder spasms. Active fluconazole (DIFLUCAN) 200 mg tabletIndicatio ns:Pelvic abscess Take 2 tablets (400 mg) by mouth daily for 14 days. 28 tablet 06/08/2024 2:19 PM MARINE ARCHITECT 5 06/22/19 25 Active linezolid (ZYVOX) 600 mg tabletIndicatio ns:Pelvic abscess Take 1 tablet (600 mg) by mouth every 12 (twelve) hours for 14 days. For infection. 28 tablet 06/08/2024 2:19 PM MARINE ARCHITECT 5 06/22/19 25 Active sulfamethoxazol e-trimethoprim (BACTRIM DS) 800 mg-160 mg per tabletIndicatio ns:Pelvic abscess Take 2 tablets by mouth every 12 (twelve) hours for 14 days. For infection. 56 tablet 06/08/2024 2:19 PM MARINE ARCHITECT 5 06/22/19 25 Active acetaminophen (TYLENOL) 325 mg tabletIndicatio ns:Pain due to malignancy Take 2 tablets (650 mg) by mouth every 6 (six) hours as needed for mild pain. Purchase over the counter. 5 Active senna-docusate (Senna Plus) 8.6 mg-50 mg tabletIndicatio ns:Pelvic abscess Take 1 tablet by mouth 2 (two) times a day as needed for constipation. Purchase over the counter. 5 Active gabapentin (NEURONTIN) 300 mg capsuleIndicati ons:Neuropathic pain Take 1 capsule (300 mg) by mouth every 12 (twelve) hours. 60 capsule 1 5 Active HYDROmorphone (DILAUDID) 2 mg tabletIndicatio ns:Pain due to malignancy Take half of a tablet (1 mg) by mouth every 4 (four) hours as needed for moderate pain or severe pain. 60 tablet 06/08/2024 2:19 PM MARINE ARCHITECT 5 Active DULoxetine (CYMBALTA) 30 mg capsule Take 1 capsule (30 mg) by mouth daily. 4 06/04/19 Discontinu ed(Therapy completed) gabapentin (NEURONTIN) 300 mg capsule Take 2 capsules (600 mg) by mouth twice daily. 4 06/08/19 Discontinu ed(Stop Taking at Discharge) carvedilol (COREG) 12.5 mg tablet Take 1 tablet (12.5 mg) by mouth twice daily. 06/04/19 Discontinu ed(Therapy completed) traMADol (ULTRAM) 50 mg tablet Take 1 tablet (50 mg) by mouth 2 (two) times a day as needed for moderate pain. 06/08/19 Discontinu ed(Stop Taking at Discharge) Active Problems Problem Noted Date Diagnosed Date Neuropathic pain 06/08/2024 Nausea 06/08/2024 Decrease in appetite 06/08/2024 Cancer associated pain 06/08/2024 Other psychological or physi tanner stress, not elsewhere classified 06/05/2024 Slow transit constipation 06/05/2024 Malignant neoplasm related fatigue 06/05/2024 Pelvic abscess 06/04/2024 Cancer 06/04/2024 Severe protein-calorie malnutrition 06/04/2024 Overview (06/04/2024): Energy Intake: < or equal to 75% of EER for > or equal to 1 month Weight Loss: > 7.5% in 3 mos Muscle Loss: Mild Sepsis 06/03/2024 Cervix neoplasm 06/03/2024 Type 2 diabetes mellitus 06/03/2024 Renal insufficiency 06/03/2024 Leukocytosis 06/03/2024 Metabolic acidosis 06/03/2024 Hypoalbuminemia 06/03/2024 Acute kidney injury due to sepsis 06/03/2024 Hyperlipidemia 06/03/2024 Hypertension 06/03/2024 Chronic depression 06/03/2024 Pain due to malignancy 06/03/2024 Abnormal vaginal bleeding 06/03/2024 Hypothyroidism 06/03/2024 Encounters * This document contains information received from the source organization and may not represent a complete record from that organization. Date Type Department Care Team Description 06/03/2024 8:10 PM MARINE ARCHITECT Ancillary Procedure [facility] [address] [place] [address] Sarah Campo MD 06/03/2024 8:05 PM MARINE ARCHITECT Ancillary Procedure [facility] [address] [place] [address] Sarah Campo MD 06/03/2024 8:00 PM MARINE ARCHITECT Ancillary Procedure [facility] [address] [place] [address] Sarah Campo MD 06/03/2024 1:46 PM MARINE ARCHITECT - 06/08/2024 5:02 PM MARINE ARCHITECT Hospital Encounter MAIN [address] [address] [place] [address] Sarah Campo MD Bevers, Michael W, MD Jazaeri, Amir Anthony, MD Sepsis (Primary Dx); Cancer; Cervix neoplasm; Type 2 diabetes mellitus, not otherwise specified; Renal insufficiency; Leukocytosis; Metabolic acidosis; Hypoalbuminemia; Pelvic abscess; Encounter for adjustment and management of vascular access device; Malignant neoplasm related fatigue; Slow transit constipation; Other psychological or physical stress, not elsewhere classified; Pain due to malignancy; Chronic depression; Neuropathic pain Discharge Disposition: Home with Home-Health or Physical Therapy 06/03/2024 Travel after 06/12/2023 Surgical History Surgery Date Site/Laterality Comments HERNIA REPAIR Medical History Medical History Date Comments Hypertension Hyperlipidemia Hypothyroidism Cervical cancer Neuropathy Chronic kidney disease Anxiety depression Diabetes mellitus Gastroesophageal reflux disease Social History Tobacco Use Types Packs/Day Years Used Date Smoking Tobacco: Former Cigarettes Q uit: 12/2023 Tobacco Cessation:Ready to Q uit: Not Asked; Counseling Given: Not Answered Comments:Few cigarettes per day for past 20 years Alcohol Use Standard Drinks/Week Comments Yes 0 (1 standard drink = 0.6 oz pur e alcohol) 1-2 days per month Comments No Sex and Gender Information Value Date Recorded Sex Assigned at Not on file Legal Sex Female 10:31 AM MARINE ARCHITECT Gender Identity Not on file Sexual Orientation Not on file Obstetrics History Para Term AB IAB SAB Ectopic Multiple Livin g Live Births 3 3 3 3 3 Date Outcome GA Total Labor Labor/2nd/3rd Weight Sex Type Anes PTL Jacquelin A1 A5 Name Clin Term Vag-S pont Living Term Vag-S pont Living Term Vag-S pont Living Last Filed Vital Signs Vital Sign Reading Time Taken Comments Blood Pressure 112/71 06/08/2024 11:31 AM MARINE ARCHITECT Pulse 71 06/08/2024 11:31 AM MARINE ARCHITECT Temperature 37 C (98.6 F) 06/08/2024 11: 31 AM MARINE ARCHITECT Respiratory Rate 16 06/08/2024 11:3 1 AM MARINE ARCHITECT Oxygen Saturation 96% 06/08/2024 11: 31 AM MARINE ARCHITECT Inhaled Oxygen Concentration - - Weight 94.8 kg (208 lb 15.9 oz) 06/04/2024 5:47 AM MARINE ARCHITECT Height 157.5 cm (5' 2") 06/04/2024 5:47 AM MARINE ARCHITECT Body Mass Index 38.23 06/04/2024 5:47 AM MARINE ARCHITECT Plan of Treatment Health Maintenance Due Date Last Done Comments COVID-19 Vaccine (2023-2 5 season) 2024 08/07/2020, 07/10/2020 Influenza Vaccine (#1) 2024 , 03/11/2020, 01/21/2019, Additional history exists Pneumococcal Vaccine: 65+ Years Completed 03/11/2020, 03/11/2020, 01/21/2019, Additional history exists Procedures Procedure Name Priority Date/Time Associated Diagnosis Comments POC GLUCOSE SCREEN Routine 06/08/2024 2: 20 PM MARINE ARCHITECT POC GLUCOSE SCREEN Routine 06/08/2024 1: 34 PM MARINE ARCHITECT POC GLUCOSE SCREEN Routine 06/08/2024 9: 29 AM MARINE ARCHITECT POC GLUCOSE SCREEN Routine 06/08/2024 8: 06 AM MARINE ARCHITECT .CBC Routine 06/08/2024 12:58 AM MARINE ARCHITECT GLUCOSE, RANDOM Routine 06/08/2024 12:58 AM MARINE ARCHITECT CREATININE Routine 06/08/2024 12:58 AM MARINE ARCHITECT BLOOD UREA NITROGEN Routine 06/08/2024 1 2:58 AM MARINE ARCHITECT MAGNESIUM LEVEL Routine 06/08/2024 12:58 AM MARINE ARCHITECT POTASSIUM LEVEL Routine 06/08/2024 12:58 AM MARINE ARCHITECT CHLORIDE LEVEL Routine 06/08/2024 12:58 AM MARINE ARCHITECT CARBON DIOXIDE LEVEL Routine 06/08/2024 12:58 AM MARINE ARCHITECT SODIUM LEVEL Routine 06/08/2024 12:58 AM MARINE ARCHITECT COMPLETE BLOOD COUNT W/ DIFFERENTIAL Routine 06/08/2024 12:58 AM MARINE ARCHITECT EKG, 12-LEAD (PORTABLE) STAT 06/08/2024 POC GLUCOSE SCREEN Routine 06/07/2024 10 :28 PM MARINE ARCHITECT POC GLUCOSE SCREEN Routine 06/07/2024 7: 34 PM MARINE ARCHITECT POC GLUCOSE SCREEN Routine 06/07/2024 2: 01 PM MARINE ARCHITECT POC GLUCOSE SCREEN Routine 06/07/2024 10 :11 AM MARINE ARCHITECT .CBC Routine 06/07/2024 12:42 AM MARINE ARCHITECT GLUCOSE, RANDOM Routine 06/07/2024 12:42 AM MARINE ARCHITECT CREATININE Routine 06/07/2024 12:42 AM MARINE ARCHITECT BLOOD UREA NITROGEN Routine 06/07/2024 1 2:42 AM MARINE ARCHITECT MAGNESIUM LEVEL Routine 06/07/2024 12:42 AM MARINE ARCHITECT POTASSIUM LEVEL Routine 06/07/2024 12:42 AM MARINE ARCHITECT CHLORIDE LEVEL Routine 06/07/2024 12:42 AM MARINE ARCHITECT CARBON DIOXIDE LEVEL Routine 06/07/2024 12:42 AM MARINE ARCHITECT SODIUM LEVEL Routine 06/07/2024 12:42 AM MARINE ARCHITECT COMPLETE BLOOD COUNT W/ DIFFERENTIAL Routine 06/07/2024 12:42 AM MARINE ARCHITECT POC GLUCOSE SCREEN Routine 2024 9: 28 PM MARINE ARCHITECT POC GLUCOSE SCREEN Routine 2024 1: 14 PM MARINE ARCHITECT POC GLUCOSE SCREEN Routine 2024 8: 13 AM MARINE ARCHITECT .CBC Routine 2024 12:30 AM MARINE ARCHITECT GLUCOSE, RANDOM Routine 2024 12:30 AM MARINE ARCHITECT CREATININE Routine 2024 12:30 AM MARINE ARCHITECT BLOOD UREA NITROGEN Routine 2024 1 2:30 AM MARINE ARCHITECT MAGNESIUM LEVEL Routine 2024 12:30 AM MARINE ARCHITECT POTASSIUM LEVEL Routine 2024 12:30 AM MARINE ARCHITECT CHLORIDE LEVEL Routine 2024 12:30 AM MARINE ARCHITECT CARBON DIOXIDE LEVEL Routine 2024 12:30 AM MARINE ARCHITECT SODIUM LEVEL Routine 2024 12:30 AM MARINE ARCHITECT COMPLETE BLOOD COUNT W/ DIFFERENTIAL Routine 2024 12:30 AM MARINE ARCHITECT POC GLUCOSE SCREEN Routine 06/05/2024 11 :15 PM MARINE ARCHITECT POC GLUCOSE SCREEN Routine 06/05/2024 6: 31 PM MARINE ARCHITECT POC GLUCOSE SCREEN Routine 06/05/2024 12 :51 PM MARINE ARCHITECT POC GLUCOSE SCREEN Routine 06/05/2024 7: 57 AM MARINE ARCHITECT .CBC Routine 06/05/2024 4:48 AM MARINE ARCHITECT VANCOMYCIN TROUGH Timed Study 06/05/2024 4:4 8 AM MARINE ARCHITECT GLUCOSE, RANDOM Routine 06/05/2024 4:48 AM MARINE ARCHITECT CREATININE Routine 06/05/2024 4:48 AM MARINE ARCHITECT BLOOD UREA NITROGEN Routine 06/05/2024 4 :48 AM MARINE ARCHITECT MAGNESIUM LEVEL Routine 06/05/2024 4:48 AM MARINE ARCHITECT POTASSIUM LEVEL Routine 06/05/2024 4:48 AM MARINE ARCHITECT CHLORIDE LEVEL Routine 06/05/2024 4:48 AM MARINE ARCHITECT CARBON DIOXIDE LEVEL Routine 06/05/2024 4:48 AM MARINE ARCHITECT SODIUM LEVEL Routine 06/05/2024 4:48 AM MARINE ARCHITECT COMPLETE BLOOD COUNT W/ DIFFERENTIAL Routine 06/05/2024 4:48 AM MARINE ARCHITECT POC GLUCOSE SCREEN Routine 06/04/2024 10 :32 PM MARINE ARCHITECT POC GLUCOSE SCREEN Routine 06/04/2024 7: 51 PM MARINE ARCHITECT AFB SMEAR Routine 06/04/2024 4:48 PM MARINE ARCHITECT Cancer Sepsis Cervix neoplasm Type 2 diabetes mellitus, not otherwise specified Renal insufficiency Leukocytosis Metabolic acidosis Hypoalbuminemia Pelvic abscess Encounter for adjustment and management of vascular access device AFB CULTURE W/ SMEAR - PERFORMABLE Routine 06/04/2024 4:48 PM MARINE ARCHITECT Cancer Sepsis Cervix neoplasm Type 2 diabetes mellitus, not otherwise specified Renal insufficiency Leukocytosis Metabolic acidosis Hypoalbuminemia Pelvic abscess Encounter for adjustment and management of vascular access device FUNGAL CULTURE W/ SMEAR Routine 06/04/2024 4:48 PM MARINE ARCHITECT Cancer Sepsis Cervix neoplasm Type 2 diabetes mellitus, not otherwise specified Renal insufficiency Leukocytosis Metabolic acidosis Hypoalbuminemia Pelvic abscess Encounter for adjustment and management of vascular access device BODY FLUID CULTURE W/ GRAM STAIN Routine 06/04/2024 4:48 PM MARINE ARCHITECT Cancer Sepsis Cervix neoplasm Type 2 diabetes mellitus, not otherwise specified Renal insufficiency Leukocytosis Metabolic acidosis Hypoalbuminemia Pelvic abscess Encounter for adjustment and management of vascular access device ANAEROBIC CULTURE Routine 06/04/2024 4:4 8 PM MARINE ARCHITECT Cancer Sepsis Cervix neoplasm Type 2 diabetes mellitus, not otherwise specified Renal insufficiency Leukocytosis Metabolic acidosis Hypoalbuminemia Pelvic abscess Encounter for adjustment and management of vascular access device IR CT GUIDED DEEP DRAIN PLACEMENT (NON-ORGAN) 75 Routine 06/04/2024 4:11 PM MARINE ARCHITECT Pelvic abscess POC GLUCOSE SCREEN Routine 06/04/2024 2: 55 PM MARINE ARCHITECT POC GLUCOSE SCREEN Routine 06/04/2024 12 :38 PM MARINE ARCHITECT C. AURIS SCREENING PCR Routine 12:10 PM MARINE ARCHITECT PICC/NON-TUNNELED CVAD REMOVAL Routine 06/04/2024 12:02 PM MARINE ARCHITECT Encounter for adjustment and management of vascular access device POC GLUCOSE SCREEN Routine 06/04/2024 8: 38 AM MARINE ARCHITECT HEMOGLOBIN A1C Add-On 06/04/2024 4:19 AM MARINE ARCHITECT .CBC Routine 06/04/2024 4:19 AM MARINE ARCHITECT BLOOD GAS VENOUS Routine 06/04/2024 4:19 AM MARINE ARCHITECT GLUCOSE, RANDOM Routine 06/04/2024 4:19 AM MARINE ARCHITECT CREATININE Routine 06/04/2024 4:19 AM MARINE ARCHITECT BLOOD UREA NITROGEN Routine 06/04/2024 4 :19 AM MARINE ARCHITECT MAGNESIUM LEVEL Routine 06/04/2024 4:19 AM MARINE ARCHITECT POTASSIUM LEVEL Routine 06/04/2024 4:19 AM MARINE ARCHITECT CHLORIDE LEVEL Routine 06/04/2024 4:19 AM MARINE ARCHITECT CARBON DIOXIDE LEVEL Routine 06/04/2024 4:19 AM MARINE ARCHITECT SODIUM LEVEL Routine 06/04/2024 4:19 AM MARINE ARCHITECT COMPLETE BLOOD COUNT W/ DIFFERENTIAL Routine 06/04/2024 4:19 AM MARINE ARCHITECT POC GLUCOSE SCREEN Routine 06/04/2024 12 :01 AM MARINE ARCHITECT URINALYSIS MICROSCOPIC EXAM Routine 06/03/2024 9:41 PM MARINE ARCHITECT URINALYSIS WITH MICROSCOPIC IF INDICATED Routine 06/03/2024 9:41 PM MARINE ARCHITECT URINALYSIS WITH MICROSCOPIC IF INDICATED Routine 06/03/2024 9:41 PM MARINE ARCHITECT URINE CULTURE Routine 06/03/2024 9:41 PM MARINE ARCHITECT POC GLUCOSE SCREEN Routine 06/03/2024 8: 08 PM MARINE ARCHITECT BLOOD CULTURE Routine 06/03/2024 3:49 PM MARINE ARCHITECT BLOOD CULTURE Routine 06/03/2024 3:49 PM MARINE ARCHITECT VERIFY CATHETER TIP PLACEMENT Routine 06/03/2024 2:38 PM MARINE ARCHITECT Cancer [facility] POC BLOOD UREA NITRO-BUN STAT 06/03/2024 2:32 PM MARINE ARCHITECT POC VENOUS BLOOD GAS + LACTATE Routine 06/03/2024 2:28 PM MARINE ARCHITECT CONFIRM ABORH TYPE Routine 06/03/2024 2: 27 PM MARINE ARCHITECT .CBC Routine 06/03/2024 2:12 PM MARINE ARCHITECT C REACTIVE PROTEIN Routine 06/03/2024 2: 12 PM MARINE ARCHITECT LACTATE DEHYDROGENASE Routine 06/03/2024 2:12 PM MARINE ARCHITECT FRACTIONATED BILIRUBIN Routine 2:12 PM MARINE ARCHITECT HC PROCALCITONIN (PCT) Routine 2:12 PM MARINE ARCHITECT FIBRINOGEN Routine 06/03/2024 2:12 PM MARINE ARCHITECT D DIMER Routine 06/03/2024 2:12 PM MARINE ARCHITECT APTT Routine 06/03/2024 2:12 PM MARINE ARCHITECT PROTHROMBIN TIME Routine 06/03/2024 2:12 PM MARINE ARCHITECT PHOSPHORUS LEVEL Routine 06/03/2024 2:12 PM MARINE ARCHITECT MAGNESIUM LEVEL Routine 06/03/2024 2:12 PM MARINE ARCHITECT COMPREHENSIVE METABOLIC PANEL Routine 06/03/2024 2:12 PM MARINE ARCHITECT TYPE AND SCREEN Routine 06/03/2024 2:12 PM MARINE ARCHITECT COMPLETE BLOOD COUNT W/ DIFFERENTIAL Routine 06/03/2024 2:12 PM MARINE ARCHITECT RESPIRATORY MULTIPLEX PCR PANEL, NASOPHARYNGEAL SWAB Routine 06/03/2024 2:07 PM MARINE ARCHITECT EKG, 12-LEAD (PORTABLE) STAT 06/03/[address] BRAIN Routine 06/02/2024 2:47 PM MARINE ARCHITECT Cancer OSI CHEST Routine 06/02/2024 2:47 PM MARINE ARCHITECT Cancer OSI CT ABDOMEN AND PELVIS Routine 06/02/2024 2:47 PM MARINE ARCHITECT after 06/12/2023 Results * (ABNORMAL) POC Glucose Screen - Fingerstick (06/08/2024 2:20 PM MARINE ARCHITECT) Only the most recent of22 resultswithin the time period is included. Glucose Screen 100(H) 70 - 99 mg/dL 06/08/2024 2:22 PM MARINE ARCHITECT [facility] POC Sample Type Capillary 06/08/2024 2:22 PM MARINE ARCHITECT [facility] Blood 06/08/2024 2:20 PM MARINE ARCHITECT 06/08/2024 2:22 PM MARINE ARCHITECT Narrative [facility] - 06/08/2024 2:22 PM MARINE ARCHITECT Capillary blood samples, e.g. obtained by fingerstick, may have inaccurate results in patients with decreased peripheral blood flow. Method description: All results are measured using Electrochemistry test methodology. The glucose in the sample mixes with the reagents on the test strip. The reaction produces an electric current. The amount of current produced is proportional to the glucose concentration in the blood. All POC Glucose screen test results, including critical values, must be interpreted and evaluated in the context of the patients' clinical findings. It is recommended to confirm any questionable test results by core lab methodology. Alpesh Fuchs MD POCT ORDERABLES - DEVICE Final Result Performing Organization Address [facility] Co de Phone Number [facility] Unless otherwise noted, all lab tests performed by: Division of Pathology and Laboratory Medicine [address] [place] [address] * Glucose, Random (06/08/2024 12:58 AM MARINE ARCHITECT) Only the most recent of5 resultswithin the time period is included. Glucose Random 71 70 - 199 mg/dL 06/08/2024 1:53 AM MARINE ARCHITECT [facility] Blood Peripheral blood specimen / Unknown Venipuncture / Unknown 06/08/2024 12:58 AM MARINE ARCHITECT 06/08/2024 1:26 AM MARINE ARCHITECT Narrative [facility] - 06/08/2024 1:53 AM MARINE ARCHITECT Effective 12/07/15, the glucose reference intervals have been updated based on [place] [employer] guidelines (Standards of Medical Care in Diabetes 2016. Diabetes Care 2016; 39: S13-S22). Fasting blood glucose: Normal: 70-99 mg/dL Impaired fasting glucose (increased risk for diabetes or pre-diabetes): 100-125 mg/dL Diabetes mellitus: >/=126 mg/dL Random blood glucose: Normal: 70-199 mg/dL Note: Random glucose >100 mg/dL is associated with increased risk for diabetes Handy John MD LAB BLOOD ORDERABLES Final R esult Performing Organization Address City/[facility]/ZIP Co de Phone Number [facility] Unless otherwise noted, all lab tests performed by: Division of Pathology and Laboratory Medicine [facility] [place] [address] * (ABNORMAL) .CBC (06/08/2024 12:58 AM [facility]) Only the most recent of6 resultswithin the time period is included. White Blood Cell 12.7(H) 4.1 - 10.5 K/uL 06/08/2024 1:31 AM [facility] Red Blood Cell 2.51(L) 3.99 - 5.46 M/uL 06/08/2024 1:31 AM [facility] Hemoglobin 7.3(L) 12.2 - 15.3 g/dL 06/08/2024 1:31 AM [facility] Hematocrit 22.0(L) 36.4 - 46.8 % 06/08/2024 1:31 AM [facility] Mean Cell Volume 88 82 - 99 fL 06/08/2024 1:31 AM [facility] Mean Cell Hemoglobin 29.1 26.6 - 33.2 pg 06/08/2024 1:31 AM [facility] Mean Cell Hemoglobin Concentration 33.2 31.1 - 35.2 g/dL 06/08/2024 1:31 AM [facility] RDW-SD 55.7(H) 37.5 - 49.7 fL 06/08/2024 1:31 AM [facility] Red Cell Diameter Width 17.2(H) 11.6 - 15.5 % 06/08/2024 1:31 AM [facility] Platelet 317 160 - 397 K/uL 06/08/2024 1:31 AM [facility] Mean Platelet Volume 9.5 9.1 - 12.6 fL 06/08/2024 1:31 AM [facility] INRBC 0.0 0.0 - 0.1 /100 WBC 06/08/2024 1:31 AM [facility] Comment: The INRBC (instrument NRBC) value reflects the enumeration of nucleated red blood cells contained in a 200uL sample of whole blood analyzed by the instrument. This value may differ from the NRBC value reported in a manual differential, which is based on a 100 cell differential. Neutrophil % 76.4(H) 43.2 - 72.7 % 06/08/2024 1:31 AM [facility] Lymphocyte % 12.4(L) 16.8 - 46.2 % 06/08/2024 1:31 AM [facility] Monocyte % 5.6 5.1 - 12.5 % 06/08/2024 1:31 AM [facility] Eosinophil % 2.4 0.4 - 6.3 % 06/08/2024 1:31 AM [facility] Basophil % 0.5 0.2 - 1.4 % 06/08/2024 1:31 AM [facility] IGRE % 2.7(H) 0.1 - 1.5 % 06/08/2024 1:31 AM [facility] Comment:The IGRE% includes M etamyelocytes, Myelocytes and Promyelocytes. Neutrophil Abs 9.73(H) 1.95 - 7.25 K/uL 06/08/2024 1:31 AM [facility] Lymphocyte Abs 1.58 1.01 - 3.24 K/uL 06/08/2024 1:31 AM [facility] Monocyte Abs 0.71 0.24 - 0.85 K/uL 06/08/2024 1:31 AM [facility] Eosinophil Abs 0.31 0.02 - 0.50 K/uL 06/08/2024 1:31 AM [facility] Basophil Abs 0.07 0.02 - 0.09 K/uL 06/08/2024 1:31 AM [facility] IG Abs 0.34(H) 0.01 - 0.12 K/uL 06/08/2024 1:31 AM [facility] Blood Peripheral blood specimen / Unknown Venipuncture / Unknown 06/08/2024 12:58 AM [facility] 06/08/2024 1:26 AM [facility] us Handy John MD LAB BLOOD ORDERABLES Final R esult [facility] Unless otherwise noted, all lab tests performed by: Division of Pathology and Laboratory Medicine [address] [place] [id number] * Blood Urea Nitrogen (06/08/2024 12:58 AM MARINE ARCHITECT) Only the most recent of5 resultswithin the time period is included. BUN 11 6 - 23 mg/dL 06/08/2024 1:53 AM MARINE ARCHITECT [facility] Blood Peripheral blood specimen / Unknown Venipuncture / Unknown 06/08/2024 12:58 AM MARINE ARCHITECT 06/08/2024 1:26 AM MARINE ARCHITECT Handy John MD LAB BLOOD ORDERABLES Final R esult Performing Organization Address City/[facility]/ZIP Co de Phone Number [facility] Unless otherwise noted, all lab tests performed by: Division of Pathology and Laboratory Medicine [address] [place] [id number] * (ABNORMAL) Sodium Level (06/08/2024 12:58 AM MARINE ARCHITECT) Only the most recent of5 resultswithin the time period is included. Sodium Level 135(L) 136 - 145 mmol/L 06/08/2024 1:53 AM MARINE ARCHITECT [facility] Blood Peripheral blood specimen / Unknown Venipuncture / Unknown 06/08/2024 12:58 AM MARINE ARCHITECT 06/08/2024 1:26 AM MARINE ARCHITECT Narrative [facility] - 06/08/2024 1:53 AM MARINE ARCHITECT Reference range established based on adult population Handy John MD LAB BLOOD ORDERABLES Final R esult [facility] Unless otherwise noted, all lab tests performed by: Division of Pathology and Laboratory Medicine [address] [place] [id number] * Potassium Level (06/08/2024 12:58 AM MARINE ARCHITECT) Only the most recent of5 resultswithin the time period is included. Potassium Level 3.5 3.4 - 4.5 mmol/L 06/08/2024 1:53 AM MARINE ARCHITECT [facility] Blood Peripheral blood specimen / Unknown Venipuncture / Unknown 06/08/2024 12:58 AM MARINE ARCHITECT 06/08/2024 1:26 AM MARINE ARCHITECT Narrative [facility] - 06/08/2024 1:53 AM MARINE ARCHITECT Reference range established based on adult population Handy John MD LAB BLOOD ORDERABLES Final R esult Performing Organization Address City/[facility] Co de Phone Number [facility] Unless otherwise noted, all lab tests performed by: Division of Pathology and Laboratory Medicine [address] [place], [place] [id number] * Magnesium Level (06/08/2024 12:58 AM MARINE ARCHITECT) Only the most recent of6 resultswithin the time period is included. Magnesium Level 1.7 1.6 - 2.6 mg/dL 06/08/2024 1:53 AM MARINE ARCHITECT [facility] Blood Peripheral blood specimen / Unknown Venipuncture / Unknown 06/08/2024 12:58 AM MARINE ARCHITECT 06/08/2024 1:26 AM MARINE ARCHITECT Handy John MD LAB BLOOD ORDERABLES Final R [facility] Performing Organization Address City/[facility] de Phone Number [facility] Unless otherwise noted, all lab tests performed by: Division of Pathology and Laboratory Medicine [address] [place] [phone] * Creatinine (06/08/2024 12:58 AM MARINE ARCHITECT) Only the most recent of5 resultswithin the time period is included. Creatinine 0.91 0.51 - 0.95 mg/dL 06/08/2024 1:53 AM MARINE ARCHITECT [facility] eGFR 67 >=60 mL/min/1.7 3 sq. m 06/08/2024 1:53 AM MARINE ARCHITECT [facility] Comment: The eGFRcr is calculated with the 2020 CKD-EPI creatinine equation using creatinine, patient's age, and sex for adults 18 years of age and older. Other factors, especially muscle mass, may affect accuracy and need to be considered. According to the Kidney Disease: Improving Global Outcomes (KDIGO) CKD Work Group 2012 Clinical Practice Guideline, chronic kidney disease (CKD) is defined as the abnormalities of kidney structure or function, present for more than 3 months, with implications for health. CKD should be classified by cause, GFR category, and albuminuria category. KDIGO guidelines provide the following GFR categories. Stage / Description / GFR mL/min/1.73 m2: G1* / Normal or high / >= 90 G2* / Mildly decreased / 60-89 G3a / Mildly to moderately decreased / 45-59 G3b / Moderately to severely decreased / 30-44 G4 / Severely decreased / 15-29 G5 / Kidney failure / <15 *In the absence of evidence of kidney damage, neither G1 nor G2 fulfill criteria for CKD. Blood Peripheral blood specimen / Unknown Venipuncture / Unknown 06/08/2024 12:58 AM MARINE ARCHITECT 06/08/2024 1:26 AM MARINE ARCHITECT Handy John MD LAB BLOOD ORDERABLES Final R [facility] Performing Organization Address City/[facility] de Phone Number [facility] Unless otherwise noted, all lab tests performed by: Division of Pathology and Laboratory Medicine [address] [place] [address] [phone] * Chloride Level (06/08/2024 12:58 AM MARINE ARCHITECT) Only the most recent of5 resultswithin the time period is included. Chloride 104 98 - 107 mmol/L 06/08/2024 1:53 AM MARINE ARCHITECT [facility] Blood Peripheral blood specimen / Unknown Venipuncture / Unknown 06/08/2024 12:58 AM MARINE ARCHITECT 06/08/2024 1:26 AM MARINE ARCHITECT Narrative [facility] - 06/08/2024 1:53 AM MARINE ARCHITECT Reference range established based on adult population Handy John MD LAB BLOOD ORDERABLES Final R esult Performing Organization Address City/State/[facility] Co de Phone Number [facility] Unless otherwise noted, all lab tests performed by: Division of Pathology and Laboratory Medicine [address] [place] [address] [phone] * (ABNORMAL) Carbon Dioxide Level (06/08/2024 12:58 AM MARINE ARCHITECT) Only the most recent of5 resultswithin the time period is included. CO2 21(L) 22 - 29 mmol/L 06/08/2024 1:53 AM MARINE ARCHITECT [facility] Blood Peripheral blood specimen / Unknown Venipuncture / Unknown 06/08/2024 12:58 AM MARINE ARCHITECT 06/08/2024 1:26 AM MARINE ARCHITECT Handy John MD LAB BLOOD ORDERABLES Final R esult Performing Organization Address City/[facility]/ZIP Co de Phone Number [facility] Unless otherwise noted, all lab tests performed by: Division of Pathology and Laboratory Medicine [address] [place] [address] [phone] * EKG, 12-Lead (Portable) (06/08/2024) Only the most recent of2 resultswithin the time period is included. Leesa Son RESIDENTIAL LEASING MANAGER ECG ORDERABLES Final Re sult Performing Organization Address [facility] Co de Phone Number [facility] * Vancomycin Trough Please draw 30 minutes prior to 0500 dose (06/05/2024 4:48 AM MARINE ARCHITECT) Pathologist [facility] Vancomycin Trough 19.3 5.0 - 20.0 mcg/mL 06/05/2024 5:12 AM MARINE ARCHITECT [facility] Vancomycin Trough Dose Time 06/05/2024 5:12 AM MARINE ARCHITECT [facility] Vancomycin Trough Dose Date 06/05/2024 5:12 AM MARINE ARCHITECT [facility] Blood Peripheral blood specimen / Unknown Venipuncture / Unknown 06/05/2024 4:48 AM MARINE ARCHITECT 06/05/2024 4:54 AM MARINE ARCHITECT Narrative [facility] - 06/05/2024 5:12 AM MARINE ARCHITECT Toxic Trough Level: >20 mcg/ml Uncomplicated MRSA bacteremia: 10-15mcg/mL MRSA bacteremia or endocarditis and other severe invasive MRSA infections (PJI, HAP, CONTROL OPERATOR FLOW COAT infections): 15-20mcg/mL Handy John MD LAB BLOOD ORDERABLES Final R esult Performing Organization Address City/[facility]/ZIP Co de Phone Number [facility] Unless otherwise noted, all lab tests performed by: Division of Pathology and Laboratory Medicine [address] [place] [address] [phone] * AFB Smear (06/04/2024 4:48 PM MARINE ARCHITECT) AFB Smear - Truant Stain No Acid-Fast Bacilli seen on fluorescent stain of Direct Specimen. No AFB seen 06/05/2024 12:25 PM MARINE ARCHITECT [facility] AFB Smear - Kinyoun Stain No Acid-Fast Bacilli seen in Confirmatory Smear. No AFB seen 06/05/2024 12:25 PM MARINE ARCHITECT [facility] Fluid (Pelvis, Right) 06/04/2024 4:48 PM MARINE ARCHITECT Handy John MD MICROBIOLOGY - GENERAL ORDER MICHELA Final Result Performing Organization Address [facility] Co de Phone Number [facility] Unless otherwise noted, all lab tests performed by: Division of Pathology and Laboratory Medicine [address] [place] [address] [phone] * (ABNORMAL) Body Fluid Culture w/ Gram Stain (06/04/2024 4:48 PM MARINE ARCHITECT) Body Fluid Culture Moderate Morganella morganii(A) 06/07/2024 1:04 PM MARINE ARCHITECT [facility] Body Fluid Culture Moderate Vancomycin-Resis tant Enterococcus faecium(A) 06/07/2024 1:04 PM MARINE ARCHITECT [facility] Body Fluid Culture Few Gleimia (Actinomyces) europaea(A) 06/07/2024 1:04 PM MARINE ARCHITECT [facility] Comment:Susceptibility testi ng not performed. Organism is highly susceptible to ampicillin/sulbactam, amoxicillin/clavulanate, ceftriaxone, vancomycin, and linezolid. Body Fluid Culture Many [place] (Actinomyces) turicensis(A) 06/07/2024 1:04 PM MARINE ARCHITECT [facility] Comment:Susceptibility testi ng not performed. Organism is highly susceptible to ampicillin/sulbactam, amoxicillin/clavulanate, ceftriaxone, vancomycin, and linezolid. Gram Stain Many WBCs seen.(A) 06/07/2024 1:04 PM MARINE ARCHITECT [facility] Gram Stain Many Gram Positive Cocci(A) 06/07/2024 1:04 PM MARINE ARCHITECT [facility] Gram Stain Many Gram Negative Rods(A) 06/07/2024 1:04 PM MARINE ARCHITECT [facility] Gram Stain Few Gram Positive Rods(A) 06/07/2024 1:04 PM MARINE ARCHITECT [facility] Fluid (Pelvis, Right) 06/04/2024 4:48 PM MARINE ARCHITECT 06/04/2024 6:50 PM MARINE ARCHITECT Narrative Organism Antibiotic Method Susceptibility Morganella morganii Ampicillin MINIMUM INHI BITORY CONCENTRATION >=32 mcg/mL: Resistant Morganella morganii Amoxicillin/Clavulan a te MINIMUM INHIBITORY CONCENTRATION >=32 mcg/mL: Resistant Morganella morganii Ampicillin/Sulbactam MINIMUM INHIBITORY CONCENTRATION 16 mcg/mL: Intermediate Morganella morganii Piperacillin/Tazobac t am MINIMUM INHIBITORY CONCENTRATION <=4 mcg/mL: Susceptible Morganella morganii Cefotaxime MINIMUM INHI BITORY CONCENTRATION 1 mcg/mL: Susceptible Morganella morganii Ceftazidime MINIMUM INHI BITORY CONCENTRATION 4 mcg/mL: Susceptible Morganella morganii Aztreonam MINIMUM INHI BITORY CONCENTRATION <=1 mcg/mL: Susceptible Morganella morganii Ertapenem MINIMUM INHI BITORY CONCENTRATION <=0.12 mcg/mL: Susceptible Morganella morganii Meropenem MINIMUM INHI BITORY CONCENTRATION <=0.25 mcg/mL: Susceptible Morganella morganii Amikacin MINIMUM INHI BITORY CONCENTRATION 2 mcg/mL: Susceptible Morganella morganii Tobramycin MINIMUM INHI BITORY CONCENTRATION <=1 mcg/mL: Susceptible Morganella morganii Ciprofloxacin MINIMUM INHI BITORY CONCENTRATION >=4 mcg/mL: Resistant Morganella morganii Levofloxacin MINIMUM INHI BITORY CONCENTRATION >=8 mcg/mL: Resistant Morganella morganii Trimethoprim/Sulfame t hoxazole MINIMUM INHIBITORY CONCENTRATION <=20 mcg/mL: Susceptible Vancomycin-Resistant Enterococcus faecium Ampicillin MINIMUM INHIBITORY CONCENTRATION >=32 mcg/mL: Resistant Vancomycin-Resistant Enterococcus faecium Linezolid MINIMUM INHIBITORY CONCENTRATION 2 mcg/mL: Susceptible Vancomycin-Resistant Enterococcus faecium Vancomycin MINIMUM INHIBITORY CONCENTRATION >=32 mcg/mL: Resistant Vancomycin-Resistant Enterococcus faecium Daptomycin MINIMUM INHIBITORY CONCENTRATION 3 mcg/mL: Susceptible Dose-Dependent Handy John MD MICROBIOLOGY - GENERAL ORDER MICHELA Final Result Performing Organization Address [facility] de Phone Number [facility] Unless otherwise noted, all lab tests performed by: Division of Pathology and Laboratory Medicine [address] [place] [address] [phone] * (ABNORMAL) Anaerobic Culture (06/04/2024 4:48 PM MARINE ARCHITECT) Anaerobic Culture >=5 types of aerobic and/or anaerobic derrek excluding Clostridium perfringens, but including:(A) 06/11/2024 8:06 AM MARINE ARCHITECT [facility] Anaerobic Culture Many Bacteroides fragilis Group(A) 06/11/2024 8:06 AM MARINE ARCHITECT [facility] Fluid (Pelvis, Right) 06/04/2024 4:48 PM MARINE ARCHITECT 06/04/2024 6:50 PM MARINE ARCHITECT Handy John MD MICROBIOLOGY - GENERAL ORDER MICHELA Final Result Performing Organization Address [facility] de Phone Number [facility] Unless otherwise noted, all lab tests performed by: Division of Pathology and Laboratory Medicine [address] [place] [phone] * IR CT GUIDED DEEP DRAIN PLACEMENT (NON-ORGAN) (06/04/2024 4:11 PM MARINE ARCHITECT) Anatomical Region Laterality Modality Computed Tomogra phy Narrative 06/05/2024 11:20 AM MARINE ARCHITECT Table formatting from the original result was not included. Date of Procedure: 06/04/24 Attending Physician: Joe Funez MD Slabber Light: Jessica Lofton Pre Procedure Diagnosis: Pelvic abscess [[id number]] Post Procedure Diagnosis: Unchanged Indication: pelvic abscesses Title of Procedure: Percutaneous Image-Guided Abscess Catheter Placement. Operative Findings: Successful percutaneous image-guided midline pelvic abscess catheter placement(s). Consent: The procedure, risks, indications and alternatives were explained. All questions were answered and informed consent was obtained. I have reviewed the history and physical dictated by the LYDIA / fellow. Sedation/Anesthesia: Moderate sedation for pain control and anxiety was administered by a dedicated nurse under my supervision. There was continuous monitoring of oxygen saturation, heart rate and intermittent monitoring of blood pressure during the procedure. Medication given was midazolam and fentanyl. I was present for the administration of the medications indicated above. Procedure Events Event Event Time Sedation Start 06/04/2024 4:19 PM Sedation End 06/04/2024 4:52 PM Procedure in Detail: A time out was performed prior to the start of the procedure and the correct patient, procedure, presence of consent, site, and side were confirmed with all members of the team. The patient was placed in a supine position on the imaging table. The skin overlying the area of interest was prepped and draped in the usual sterile fashion. Lidocaine 1% was used for local anesthesia. Under CT imaging guidance an 18 gauge needle was advanced down to the abscess collection. A wire was advanced through the needle and coiled in the cavity. Sequential dilatation was performed and a 10 [place] Helen[place] Mac-loc catheter was formed in the cavity with imaging guidance. Adequate position was confirmed. The catheter was secured to the skin with Prolene suture. Additional Comments: None Estimated Blood Loss: Minimal Specimens Removed: Yes - Sample sent to Microbiology. Immediate Complications: None Disposition: PACU Plan: Catheter to gravity drainage. Flush catheter as directed. Recommend repeat imaging to evaluate for undrained residual collections prior to IR drain removal I certify my physical presence at the time of the procedure. I personally reviewed the image(s) and the resident's/fellow's interpretation and agree with the written report. us Handy John MD IM IR ORDERABLES Final Resu lt * C. auris Screening PCR (06/04/2024 12:10 PM [facility]) Specimen Source Axilla + Groin 06/09/2024 9:07 AM [facility] [employer] F[employer] C auris PCR, Result Negative Not Applicable 06/09/2024 9:07 AM [facility] [employer] FRANCINE Comment: ADDITIONAL INFORMATION This test was developed and its performance characteristics determined by [facility] in a manner consistent with CLIA requirements. This test has not been cleared or approved by the U.S. Food and Drug Administration. Test Performed by: [facility] - [address] [address] Instrumental Teacher: Alicia Page Ph.D.; CLIA# [id number] Swab (Axilla + Groin) Non-blood Collection / Unknown 06/04/2024 12:10 PM MARINE ARCHITECT 06/04/2024 12:21 PM MARINE ARCHITECT Ralph Bucio MD MICROBIOLOGY - GENERAL ORDERABLE S Final Result [facility] FRANCINE * PICC/Non-Tunneled CVAD Removal (06/04/2024 12:02 PM MARINE ARCHITECT) Narrative Tiki Duran RN - 06/04/2024 12:02 PM MARINE ARCHITECT Tiki Duran RN 06/04/2024 12:04 PM PICC/Non-Tunneled CVAD Removal Date/Time: 06/04/2024 12:02 PM Performed by: Tiki Duran RN Authorized by: Leesa Son APRN Pre Procedure: Proceduralist Type: RN Proceduralist: Tiki Duran RN Procedure Location: Inpatient Bedside Reason for Removal: Treatment Complete Pre-procedure the patient was alert. Time out: universal protocol time out performed and documented. Procedure: A triple lumen right femoral Non-Tunneled CVC was removed intact successfully. Patient was placed in flat/supine position. Patient held breath while catheter removed slowly. Upon final inspection catheter was Intact. Direct pressure applied to site for a duration of 5 min until hemostasis achieved. An occlusive dressing was applied. Estimated blood loss is none. Post Procedure: Duration of Patient Observation: 30 min Post Removal Patient Status: Procedure tolerated well with no immediate complications Specimen: N/A Mode of Disposition: Remained in inpatient bed Leesa Son APRN IV THERAPY ORDERABLES Fi nal Result * Hemoglobin A1c (06/04/2024 4:19 AM MARINE ARCHITECT) Hemoglobin A1c 5.4 4.3 - 5.6 % 06/04/2024 10:53 AM MARINE ARCHITECT [facility] Blood Venous blood specimen / Unknown CVC Line / Unknown 06/04/2024 4:19 AM MARINE ARCHITECT 06/04/2024 4:27 AM MARINE ARCHITECT Narrative [facility] - 06/04/2024 10:53 AM [facility] HbA1c values >=6.5% are diagnostic of diabetes mellitus. Diagnosis should be confirmed by repeat testing. Therapeutic Action suggested: >8.0% HbA1c; Goal of therapy: <7.0% HbA1c Handy John MD LAB BLOOD ORDERABLES Final R esult Performing Organization Address City/[facility]/ZIP Co de Phone Number [facility] Unless otherwise noted, all lab tests performed by: Division of Pathology and Laboratory Medicine [address] [place] [address] [phone] * (ABNORMAL) VBG (06/04/2024 4:19 AM [facility]) pH Venous 7.40 7.32 - 7.43 06/04/2024 4:29 AM [facility] P CO2 Venous 36.3(L) 41.0 - 51.0 mmHg 06/04/2024 4:29 AM [facility] P O2 Venous 37 mmHg 06/04/2024 4:29 AM [facility] Bicarbonate Venous 23 21 - 28 mmol/L 06/04/2024 4:29 AM [facility] Base Excess Venous -2 -2 - 3 mmol/L 06/04/2024 4:29 AM [facility] Oxygen Saturation Venous 68 % 06/04/2024 4:29 AM [facility] Oxygen FLOW Rate/ FiO2 06/04/2024 4:29 AM [facility] O2 Therapy Room air 06/04/2024 4:29 AM [facility] Blood Venous blood specimen / Unknown CVC Line / Unknown 06/04/2024 4:19 AM MARINE ARCHITECT 06/04/2024 4:27 AM MARINE ARCHITECT Britta Yoder APRN,[place] LAB BLOOD ORDERABLES F inal Result [facility] Unless otherwise noted, all lab tests performed by: Division of Pathology and Laboratory Medicine [address] [place] [address] [phone] * (ABNORMAL) Urinalysis w/Microscopic if Indicated (06/03/2024 9:41 PM MARINE ARCHITECT) Urine Appearance Clear Clear 06/03/19 10:28 PM [facility] Urine Color Straw Colorless, Straw, Yellow, Dark Yellow, Straw-Yellow 06/03/2024 10:28 PM [facility] Urine Specific [place] 1.019 1.003 - 1.035 06/03/2024 10:28 PM [facility] Urine pH 5.5 5.0 - 8.0 06/03/2024 10:28 PM [facility] Urine Glucose Negative Negative mg/dL 06/03/2024 10:28 PM [facility] Urine Ketones Negative Negative mg/dL 06/03/2024 10:28 PM [facility] Urine Blood Small(A) Negative 06/03/2024 10:28 PM [facility] Urine Protein 30(A) Negative mg/dL 06/03/2024 10:28 PM [facility] Urine Bilirubin Negative Negative 10:28 PM [facility] Urine Urobilinogen Negative Negative 06/03/2024 10:28 PM [facility] Urine Nitrite Negative Negative 06/03/2024 10:28 PM [facility] Urine Leukocyte Esterase Negative Negative 06/03/2024 10:28 PM [facility] Urine (Urine Mays) Non-blood Collection / Unknown 06/03/2024 9:41 PM MARINE ARCHITECT 06/03/2024 10:10 PM MARINE ARCHITECT Narrative [facility] - 06/03/2024 10:28 PM MARINE ARCHITECT Some reporting parameters within the Urinalysis test have changed due to the implementation of new instrumentation in the Main [place], allowing greater sensitivity of measurement. Urinalysis results reported by the [facility] using existing instrumentation, as well as Urinalysis testing performed manually or by back-up methodology at the main [place], will remain relatively unchanged. New reporting parameters and units will now be reported for all campuses. us Handy John MD URINE ORDERABLES Final Resul t Performing Organization Address City/[facility]/ZIP Co de Phone Number [facility] Unless otherwise noted, all lab tests performed by: Division of Pathology and Laboratory Medicine [address] [place] [address] [phone] * (ABNORMAL) Urinalysis Microscopic Exam (06/03/2024 9:41 PM MARINE ARCHITECT) Urine Mucous Trace Not Seen, Trace /HPF 06/03/2024 10:39 PM MARINE ARCHITECT [facility] Urine Bacteria Not Seen Not Seen /HPF 06/03/2024 10:39 PM MARINE ARCHITECT [facility] Urine Squamous Epithelial Cells OCC Not Seen, OCC, Rare /HPF 06/03/2024 10:39 PM MARINE ARCHITECT [facility] Urine Uric Acid Crystal OCC(A) Not Seen /HPF 06/03/2024 10:39 PM MARINE ARCHITECT [facility] Urine WBC 4(H) <=2 /HPF 06/03/2024 10:39 PM MARINE ARCHITECT [facility] Urine RBC 2 <=2 /HPF 06/03/2024 10:39 PM MARINE ARCHITECT [facility] Urine Hyaline Casts 5(H) <=2 /LPF 06/03/2024 10:39 PM MARINE ARCHITECT [facility] Urine Granular Casts 4(H) <=0 /LPF 06/03/2024 10:39 PM MARINE ARCHITECT [facility] Urine (Urine Mays) Non-blood Collection / Unknown 06/03/2024 9:41 PM MARINE ARCHITECT 06/03/2024 10:10 PM MARINE ARCHITECT Handy John MD LAB BLOOD ORDERABLES Final R esult [facility] Unless otherwise noted, all lab tests performed by: Division of Pathology and Laboratory Medicine [address] [place] [address] [phone] * Urine Culture (06/03/2024 9:41 PM MARINE ARCHITECT) Urine Culture No Growth. 06/05/2024 9:10 AM MARINE ARCHITECT [facility] Urine (Urine Mays) Non-blood Collection / Unknown 06/03/2024 9:41 PM MARINE ARCHITECT 06/03/2024 10:10 PM MARINE ARCHITECT Handy John MD MICROBIOLOGY - GENERAL ORDER MICHELA Final Result Performing Organization Address City/[facility] Co de Phone Number [facility] Unless otherwise noted, all lab tests performed by: Division of Pathology and Laboratory Medicine [address] [place] [address] [phone] * Blood culture (06/03/2024 3:49 PM MARINE ARCHITECT) Only the most recent of2 resultswithin the time period is included. Pathologist [facility] Blood Culture No Growth. 06/08/2024 5:00 PM MARINE ARCHITECT [facility] Blood Peripheral blood specimen / Unknown Venipuncture / Unknown 06/03/2024 3:49 PM MARINE ARCHITECT 06/03/2024 4:21 PM MARINE ARCHITECT Sarah Lomeli MD MICROBIOLOGY - GENERAL ORDERABLES Final Result Performing Organization Address City/[facility] Co de Phone Number [facility] Unless otherwise noted, all lab tests performed by: Division of Pathology and Laboratory Medicine [address] [place] [phone] * Tip Verification Central Vascular Access Device (06/03/2024 2:38 PM MARINE ARCHITECT) Narrative Sarah Campo MD - 06/03/2024 2:38 PM MARINE ARCHITECT Sarah Campo MD 06/03/2024 2:40 PM Central Vascular Access Device Tip Verification Performed by: Sarah Campo MD Authorized by: Sarah Campo MD CVAD Properties Date device placed: 06/01/2024 Placed by: [facility] Device placement location: Outside facility Catheter Type: Non-tunneled CVC Catheter lumen: Double lumen Vein location: Femoral Laterality: Right Tip in good position and cleared for infusion Sarah Lomeli MD IV THERAPY ORDERABLES F inal Result * (ABNORMAL) POC Chem 8 without Hemoglobin and Hematocrit (06/03/2024 2:32 PM MARINE ARCHITECT) POC Sodium 137(L) 138 - 146 mmol/L 06/03/2024 2:41 PM [facility] POC Potassium 3.4(L) 3.5 - 4.9 mmol/L 06/03/2024 2:41 PM [facility] POC Chloride 106 98 - 109 mmol/L 06/03/2024 2:41 PM [facility] POC VTCO2 20(L) 24 - 29 mmol/L 06/03/2024 2:41 PM [facility] POC Anion Gap 15 10 - 20 mmol/L 06/03/2024 2:41 PM [facility] POC BUN 19 8 - 26 mg/dL 06/03/2024 2:41 PM [facility] POC Creatinine 1.7(H) 0.6 - 1.3 mg/dL 06/03/2024 2:41 PM [facility] Comment:Medications, especia lly hydroxyurea or supplements, such as ascorbate, can interfere with test results causing a falsely and significantly higher result than expected. If a problem is suspected with a patient's result, a sample should be sent to the laboratory for confirmatory testing. POC I Glu 115(H) 70 - 99 mg/dL 06/03/2024 2:41 PM [facility] Comment:Medications, especia lly hydroxyurea or supplements, such as ascorbate, can interfere with test results causing a falsely and significantly higher result than expected. If a problem is suspected with a patient's result, a sample should be sent to the laboratory for confirmatory testing. POC Ionized Calcium 1.20 1.12 - 1.32 mmol/L 06/03/2024 2:41 PM [facility] POC Sample Type Venous 2:41 PM [facility] POC eGFR 32(L) >=60 mL/min/1.7 3 sq. m 06/03/2024 2:41 PM [facility] Comment: The eGFRcr is calculated with the 2020 CKD-EPI creatinine equation using creatinine, patient's age, and sex for adults 18 years of age and older. Other factors, especially muscle mass, may affect accuracy and need to be considered. According to the Kidney Disease: Improving Global Outcomes (KDIGO) CKD Work Group 2012 Clinical Practice Guideline, chronic kidney disease (CKD) is defined as the abnormalities of kidney structure or function, present for more than 3 months, with implications for health. CKD should be classified by cause, GFR category, and albuminuria category. KDIGO guidelines provide the following GFR categories. Stage / Description / GFR mL/min/1.73 m2: G1* / Normal or high / >= 90 G2* / Mildly decreased / 60-89 G3a / Mildly to moderately decreased / 45-59 G3b / Moderately to severely decreased / 30-44 G4 / Severely decreased / 15-29 G5 / Kidney failure / <15 *In the absence of evidence of kidney damage, neither G1 nor G2 fulfill criteria for CKD. Blood 06/03/2024 2:32 PM MARINE ARCHITECT 06/03/2024 2:40 PM MARINE ARCHITECT Narrative [facility] - 06/03/2024 2:41 PM MARINE ARCHITECT Method description: The i-STAT is an analyzer used for in vitro quantification of various analytes in whole blood. The device uses a single disposable cartridge which contains microfabricated sensors, a calibration solution, fluidics system, and a waste chamber. Each test cartridge contains chemically sensitive biosensors on a silicon chip that are configured to perform specific tests. The microfabricated sensors measure analyte concentration by an electrochemical assay. Sarah Lomeli MD POINT OF CARE TEST SHU NAIR Final Result [facility] Unless otherwise noted, all lab tests performed by: Division of Pathology and Laboratory Medicine [address] [place] [phone] * (ABNORMAL) POC VBG+LAC (06/03/2024 2:28 PM MARINE ARCHITECT) POC VB pH. 7.397 7.310 - 7.410 06/03/2024 2:37 PM MARINE ARCHITECT [facility] POC VB pCO2. 31.8(L) 41.0 - 51.0 mmHg 06/03/2024 2:37 PM MARINE ARCHITECT [facility] POC VB pO2. 45 mmHg 06/03/2024 2:37 PM MARINE ARCHITECT [facility] POC VB TCO2 21(L) 24 - 29 mmol/L 06/03/2024 2:37 PM MARINE ARCHITECT [facility] POC VB Bicarb 19.6(L) 23.0 - 28.0 mmol/L 06/03/2024 2:37 PM MARINE ARCHITECT [facility] POC VB Base Excess -5(L) -2 - 3 mmol/L 06/03/2024 2:37 PM MARINE ARCHITECT [facility] POC VB O2 Sat 81 % 06/03/2024 2:37 PM MARINE ARCHITECT [facility] POC VB LAC 1.28 0.90 - 1.70 mmol/L 06/03/2024 2:37 PM MARINE ARCHITECT [facility] POC FiO2 0 06/03/2024 2:37 PM MARINE ARCHITECT [facility] POC Sample Type Venous 06/03/2024 2:37 PM MARINE ARCHITECT [facility] Blood 06/03/2024 2:28 PM MARINE ARCHITECT 06/03/2024 2:37 PM MARINE ARCHITECT Narrative [facility] - 06/03/2024 2:37 PM MARINE ARCHITECT Method description: The i-STAT is an analyzer used for in vitro quantification of various analytes in whole blood. The device uses a single disposable cartridge which contains microfabricated sensors, a calibration solution, fluidics system, and a waste chamber. Each test cartridge contains chemically sensitive biosensors on a silicon chip that are configured to perform specific tests. The microfabricated sensors measure analyte concentration by an electrochemical assay. Sarah Lomeli MD POCT ORDERABLES - DEVIC E Final Result [facility] Unless otherwise noted, all lab tests performed by: Division of Pathology and Laboratory Medicine [address] [place] [phone] * Confirm ABORh (06/03/2024 2:27 PM MARINE ARCHITECT) ABORh Confirm O POS 06/03/2024 2:12 PM MARINE ARCHITECT [facility] - TRANSFUSION SERVICES Blood Peripheral blood specimen / Unknown Venipuncture / Unknown 06/03/2024 2:27 PM MARINE ARCHITECT 06/03/2024 2:32 PM MARINE ARCHITECT Sarah Lomeli MD BLOOD BANK TEST ORDERAB LES Final Result [facility] - TRANSFUSION SERVICES [facility] Transfusion Services [id number] [place] [address] * (ABNORMAL) Procalcitonin (06/03/2024 2:12 PM MARINE ARCHITECT) Pathologist [facility] Procalcitonin 2.11(H) <=0.08 ng/mL 06/03/2024 3:15 PM MARINE ARCHITECT [facility] Blood Venous blood specimen / Unknown CVC Line / Unknown 06/03/2024 2:12 PM MARINE ARCHITECT 06/03/2024 2:32 PM MARINE ARCHITECT Narrative [facility] - 06/03/2024 3:15 PM MARINE ARCHITECT Procalcitonin > 2.00 ng/mL: Procalcitonin levels above 2.00 ng/mL are highly suggestive of a high risk for systematic bacterial infection/ severe sepsis and/or septic shock. Procalcitonin < 0.50 ng/mL: Procalcitonin levels below 0.50 ng/mL are at low risk for progression to severe sepsis and/ or septic shock. Procalcitonin (ProCT) between 0.15 and 2.0 ng/mL do not exclude infection, because localized infections (without systemic signs) may be associated with such low levels. Results greater than 400 ng/mL may not be reliable due to the matrix effect with extended dilution as it exceeds the fiberglass fabricator's recommended limit. Caution should be exercised when interpreting such values and done in conjunction with clinical context. us Sarah Lomeli MD LAB BLOOD ORDERABLES Fi nal Result [facility] Unless otherwise noted, all lab tests performed by: Division of Pathology and Laboratory Medicine [address] [place] [address] * Fractionated Bilirubin (06/03/2024 2:12 PM MARINE ARCHITECT) [facility] Bilirubin Direct 0.2 0.0 - 0.2 mg/dL 06/03/2024 3:34 PM MARINE ARCHITECT [facility] Comment:Indocyanine Green (I CG) may cause falsely elevated bilirubin results. Total and direct bilirubin must not be measured from samples containing indocyanine green. Bilirubin Indirect 0.1 0.0 - 1.0 mg/dL 06/03/2024 3:34 PM MARINE ARCHITECT [facility] Bilirubin Total 0.3 0.0 - 1.2 mg/dL 06/03/2024 3:34 PM MARINE ARCHITECT [facility] Comment: Indocyanine Green (ICG) may cause falsely elevated bilirubin results. Total and direct bilirubin must not be measured from samples containing indocyanine green. False elevation of total bilirubin can be seen in patients with IgG concentrations above 28 g/L. Indocyanine Green (ICG) may cause falsely elevated bilirubin results. Total and direct bilirubin must not be measured from samples containing indocyanine green. False elevation of total bilirubin can be seen in patients with IgG concentrations above 28 g/L. Blood Venous blood specimen / Unknown CVC Line / Unknown 06/03/2024 2:12 PM MARINE ARCHITECT 06/03/2024 2:32 PM MARINE ARCHITECT Sarah Lomeli MD LAB BLOOD ORDERABLES Fi nal Result [facility] Unless otherwise noted, all lab tests performed by: Division of Pathology and Laboratory Medicine [address] [place] [phone] * (ABNORMAL) Comprehensive Metabolic Panel (06/03/2024 2:12 PM MARINE ARCHITECT) Pathologist [facility] Bilirubin Total 0.3 0.0 - 1.2 mg/dL 06/03/2024 3:34 PM MARINE ARCHITECT [facility] Comment:Indocyanine Green (I CG) may cause falsely elevated bilirubin results. Total and direct bilirubin must not be measured from samples containing indocyanine green. False elevation of total bilirubin can be seen in patients with IgG concentrations above 28 g/L. eGFR 36(L) >=60 mL/min/1. 73 sq. m 06/03/2024 3:34 PM MARINE ARCHITECT [facility] Comment: The eGFRcr is calculated with the 2020 CKD-EPI creatinine equation using creatinine, patient's age, and sex for adults 18 years of age and older. Other factors, especially muscle mass, may affect accuracy and need to be considered. According to the Kidney Disease: Improving Global Outcomes (KDIGO) CKD Work Group 2012 Clinical Practice Guideline, chronic kidney disease (CKD) is defined as the abnormalities of kidney structure or function, present for more than 3 months, with implications for health. CKD should be classified by cause, GFR category, and albuminuria category. KDIGO guidelines provide the following GFR categories. Stage / Description / GFR mL/min/1.73 m2: G1* / Normal or high / >= 90 G2* / Mildly decreased / 60-89 G3a / Mildly to moderately decreased / 45-59 G3b / Moderately to severely decreased / 30-44 G4 / Severely decreased / 15-29 G5 / Kidney failure / <15 *In the absence of evidence of kidney damage, neither G1 nor G2 fulfill criteria for CKD. Tot Protein 5.5(L) 6.4 - 8.3 gm/dL 06/03/2024 3:34 PM [facility] Calcium Level Total 8.6 8.2 - 10.2 mg/dL 06/03/2024 3:34 PM [facility] Alkaline Phosphatase 105(H) 35 - 104 U/L 06/03/2024 3:34 PM [facility] Albumin Level 2.1(L) 3.5 - 5.2 gm/dL 06/03/2024 3:34 PM [facility] AST 40(H) <=32 U/L 06/03/2024 3:34 PM [facility] ALT 12 <=33 U/L 06/03/2024 3:34 PM [facility] Sodium Level 138 136 - 145 mmol/L 06/03/2024 3:34 PM [facility] Potassium Level 3.4 3.4 - 4.5 mmol/L 06/03/2024 3:34 PM [facility] Chloride 105 98 - 107 mmol/L 06/03/2024 3:34 PM [facility] CO2 19(L) 22 - 29 mmol/L 06/03/2024 3:34 PM [facility] Anion Gap 14 4 - 14 mmol/L 06/03/2024 3:34 PM [facility] Creatinine 1.53(H) 0.51 - 0.95 mg/dL 06/03/2024 3:34 PM [facility] BUN 20 6 - 23 mg/dL 06/03/2024 3:34 PM [facility] Glucose Level 114(H) 70 - 99 mg/dL 06/03/2024 3:34 PM MARINE ARCHITECT [facility] Comment: Effective 12/07/15, the glucose reference intervals have been updated based on [place] [employer] guidelines (Standards of Medical Care in Diabetes 2016. Diabetes Care 2016; 39: S13-S22). Fasting blood glucose: Normal: 70-99 mg/dL Impaired fasting glucose (increased risk for diabetes or pre-diabetes): 100-125 mg/dL Diabetes mellitus: >/=126 mg/dL Random blood glucose: Normal: 70-199 mg/dL Note: Random glucose >100 mg/dL is associated with increased risk for diabetes. Blood Venous blood specimen / Unknown CVC Line / Unknown 06/03/2024 2:12 PM MARINE ARCHITECT 06/03/2024 2:32 PM MARINE ARCHITECT Sarah Lomeli MD LAB BLOOD ORDERABLES Fi nal Result Performing Organization Address City/[facility]/ZIP Co de Phone Number [facility] Unless otherwise noted, all lab tests performed by: Division of Pathology and Laboratory Medicine [address] [place] [phone] * (ABNORMAL) aPTT (06/03/2024 2:12 PM MARINE ARCHITECT) Pathologist [facility] Activated PTT 37.3(H) 24.8 - 35.6 second(s) 06/03/2024 3:20 PM MARINE ARCHITECT [facility] Blood Venous blood specimen / Unknown CVC Line / Unknown 06/03/2024 2:12 PM MARINE ARCHITECT 06/03/2024 2:32 PM MARINE ARCHITECT Sarah Lomeli MD LAB BLOOD ORDERABLES Fi nal Result [facility] Unless otherwise noted, all lab tests performed by: Division of Pathology and Laboratory Medicine [address] [place] [phone] * (ABNORMAL) Prothrombin Time with INR (06/03/2024 2:12 PM MARINE ARCHITECT) Prothrombin Time 16.2(H) 12.2 - 14.4 second(s) 06/03/2024 3:20 PM MARINE ARCHITECT [facility] International Normalization Ratio 1.33(H) 0.91 - 1.10 06/03/2024 3:20 PM MARINE ARCHITECT [facility] Blood Venous blood specimen / Unknown CVC Line / Unknown 06/03/2024 2:12 PM MARINE ARCHITECT 06/03/2024 2:32 PM MARINE ARCHITECT Result Zachary Lomeli MD LAB BLOOD ORDERABLES Fi nal Result Performing Organization Address City/[facility] Co de Phone Number [facility] Unless otherwise noted, all lab tests performed by: Division of Pathology and Laboratory Medicine [address] [place] [phone] * (ABNORMAL) Fibrinogen (06/03/2024 2:12 PM MARINE ARCHITECT) [facility] Fibrinogen 605(H) 214 - 503 mg/dL 06/03/2024 3:20 PM MARINE ARCHITECT [facility] Blood Venous blood specimen / Unknown CVC Line / Unknown 06/03/2024 2:12 PM MARINE ARCHITECT 06/03/2024 2:32 PM MARINE ARCHITECT Result Zachary Lomeli MD LAB BLOOD ORDERABLES Fi nal Result Performing Organization Address City/[facility] de Phone Number [facility] Unless otherwise noted, all lab tests performed by: Division of Pathology and Laboratory Medicine [address] [place] [phone] * (ABNORMAL) D Dimer (06/03/2024 2:12 PM MARINE ARCHITECT) Pathologist [facility] D-Dimer 8.29(H) 0.10 - 0.50 mcg/ml FEU 06/03/2024 3:20 PM MARINE ARCHITECT [facility] Blood Venous blood specimen / Unknown CVC Line / Unknown 06/03/2024 2:12 PM MARINE ARCHITECT 06/03/2024 2:32 PM MARINE ARCHITECT Narrative [facility] - 06/03/2024 3:20 PM MARINE ARCHITECT The cut off value for exclusion of venous thromboembolism is <0.51 mcg/mL FEUs (fibrinogen equivalent units). us Sarah Lomeli MD LAB BLOOD ORDERABLES Fi nal Result [facility] Unless otherwise noted, all lab tests performed by: Division of Pathology and Laboratory Medicine [address] [place] [phone] * Type and Screen (06/03/2024 2:12 PM MARINE ARCHITECT) ABORh O POS 06/03/2024 1:40 PM MARINE ARCHITECT [facility] TRANSF[facility]ION [facility] ABSC Negative 06/03/2024 1:40 PM MARINE ARCHITECT [facility] Clot Expiration 2024 23:59 06/03/2024 1:40 PM MARINE ARCHITECT [facility] Historical Record Check No History 06/03/2024 1:40 PM MARINE ARCHITECT [facility] Blood Venous blood specimen / Unknown CVC Line / Unknown 06/03/2024 2:12 PM MARINE ARCHITECT 06/03/2024 2:32 PM MARINE ARCHITECT Sarah Lomeli MD BLOOD BANK TEST ORDERAB LES Final Result [facility] - TRANSFUSION [facility] Transfusion Services [address] [place] [address] [id number] [place] [address] * CRP (C-reactive protein) (06/03/2024 2:12 PM MARINE ARCHITECT) CRP (C Reactive Protein) >285.00 mg/L 06/03/2024 3:32 PM MARINE ARCHITECT [facility] Blood Venous blood specimen / Unknown CVC Line / Unknown 06/03/2024 2:12 PM MARINE ARCHITECT 06/03/2024 2:32 PM MARINE ARCHITECT Narrative [facility] - 06/03/2024 3:32 PM MARINE ARCHITECT Adult Reference ranges for HS CRP assay are as follows: Reference ranges when used to assess cardiac risk: <1.00 mg/L Low cardiovascular risk 1.00-3.00 mg/L Average cardiovascular risk >3.00 mg/L High cardiovascular risk Reference ranges when used to assess inflammatory responses: > 10.00 mg/L Sarah Lomeli MD LAB BLOOD ORDERABLES Fi nal Result Performing Organization Address City/[facility]/ZIP Co de Phone Number [facility] Unless otherwise noted, all lab tests performed by: Division of Pathology and Laboratory Medicine [address] [place] [phone] * Phosphorus Level (06/03/2024 2:12 PM MARINE ARCHITECT) [facility] Phosphorus Level 3.6 2.5 - 4.5 mg/dL 06/03/2024 3:34 PM MARINE ARCHITECT [facility] Blood Venous blood specimen / Unknown CVC Line / Unknown 06/03/2024 2:12 PM MARINE ARCHITECT 06/03/2024 2:32 PM MARINE ARCHITECT Result Zachary Lomeli MD LAB BLOOD ORDERABLES Fi nal Result Performing Organization Address [facility] Co de Phone Number [facility] Unless otherwise noted, all lab tests performed by: Division of Pathology and Laboratory Medicine [address] [place] [phone] * (ABNORMAL) LDH (06/03/2024 2:12 PM MARINE ARCHITECT) [facility] LDH 1,018(H) 135 - 214 U/L 06/03/2024 3:16 PM MARINE ARCHITECT [facility] Blood Venous blood specimen / Unknown CVC Line / Unknown 06/03/2024 2:12 PM MARINE ARCHITECT 06/03/2024 2:32 PM MARINE ARCHITECT Narrative [facility] - 06/03/2024 3:16 PM MARINE ARCHITECT Results greater than 1651 U/L may not be reliable due to matrix effect with extended dilution as it exceeds the fiberglass fabricator's recommended limit. Caution should be exercised when interpreting such values and done in conjunction with clinical context. Result Zachary Lomeli MD LAB BLOOD ORDERABLES Fi nal Result Performing Organization Address City/[facility] Co de Phone Number [facility] Unless otherwise noted, all lab tests performed by: Division of Pathology and Laboratory Medicine [address] [place] [phone] * Respiratory Multiplex PCR Panel, Nasopharyngeal Swab (06/03/2024 2:07 PM MARINE ARCHITECT) Pathologist [facility] Adenovirus Not Detected Not Detected 06/03/2024 3:17 PM MARINE ARCHITECT [facility] Coronavirus 229E Not Detected Not Detected 06/03/2024 3:17 PM MARINE ARCHITECT [facility] Coronavirus HKU1 Not Detected Not Detected 06/03/2024 3:17 PM MARINE ARCHITECT [facility] Coronavirus NL63 Not Detected Not Detected 06/03/2024 3:17 PM MARINE ARCHITECT [facility] Coronavirus OC43 Not Detected Not Detected 06/03/2024 3:17 PM MARINE ARCHITECT [facility] COVID-19 (SARS-CoV-2) Not Detected Not Detected 06/03/2024 3:17 PM MARINE ARCHITECT [facility] Human Metapneumovirus Not Detected Not Detected 06/03/2024 3:17 PM MARINE ARCHITECT [facility] Human Rhinovirus/Enterov irus Not Detected Not Detected 06/03/2024 3:17 PM MARINE ARCHITECT [facility] Influenza A Not Detected Not Detected 06/03/2024 3:17 PM MARINE ARCHITECT [facility] Influenza A H1 Not Detected Not Detected 06/03/2024 3:17 PM MARINE ARCHITECT [facility] Influenza A H1 2009 Not Detected Not Detected 06/03/2024 3:17 PM MARINE ARCHITECT [facility] Influenza A H3 Not Detected Not Detected 06/03/2024 3:17 PM [facility] Influenza B Not Detected Not Detected 06/03/2024 3:17 PM [facility] Parainfluenza Virus 1 Not Detected Not Detected 06/03/2024 3:17 PM [facility] Parainfluenza Virus 2 Not Detected Not Detected 06/03/2024 3:17 PM [facility] Parainfluenza Virus 3 Not Detected Not Detected 06/03/2024 3:17 PM [facility] Parainfluenza Virus 4 Not Detected Not Detected 06/03/2024 3:17 PM [facility] Respiratory Syncytial Virus Not Detected Not Detected 06/03/2024 3:17 PM MARINE ARCHITECT [facility] Bordetella parapertussis Not Detected Not Detected 06/03/2024 3:17 PM [facility] Bordetella pertussis Not Detected Not Detected 06/03/2024 3:17 PM MARINE ARCHITECT [facility] Chlamydophila pneumoniae Not Detected Not Detected 06/03/2024 3:17 PM MARINE ARCHITECT [facility] Mycoplasma pneumoniae Not Detected Not Detected 06/03/2024 3:17 PM MARINE ARCHITECT [facility] Swab Nasopharyngeal structure / Unknown Non-blood Collection / Unknown 06/03/2024 2:07 PM MARINE ARCHITECT 06/03/2024 2:18 PM MARINE ARCHITECT [facility] - 06/03/2024 3:17 PM MARINE ARCHITECT The assay is a qualitative multiplex PCR assay to aid in the diagnosis of respiratory pathogens through simultaneous qualitative detection and identification of multiple pathogens directly from nasopharyngeal swabs (HELP DESK CONSULTANT) from individuals with respiratory symptoms. Testing is performed using the [employer] Respiratory Panel 2.1 (RP2.1) on the [employer] System. The following organisms are identified using the [employer] RP 2.1 Panel: Adenovirus, Human Coronavirus (229E, HKU1, NL63, and OC43), Severe Acute Respiratory Syndrome Coronavirus 2 (SARS-CoV-2), Human Metapneumovirus, Human Rhinovirus/Enterovirus, Influenza A, including subtypes (H1, H3 and H1-2009), Influenza B, Parainfluenza Virus (1, 2, 3, and 4), Respiratory Syncytial Virus, Bordetella parapertussis, Bordetella pertussis, Chlamydia pneumoniae, and Mycoplasma pneumoniae A result of Not Detected" does not exclude the possibility of the presence of one or more of the pathogens at or below the detection limits of this assay nor does exclude the possibility of pathogens not detected by this panel. Non-infectious causes of respiratory symptoms should also be considered in such cases. Internal controls are used to monitor all stages of the testing process including amplification inhibition. If inhibition is detected, testing is repeated and if inhibition is confirmed the specimen is resulted as "Invalid". When an "Invalid" result occurs, it is recommended to wait 3 days before submitting a new specimen for testing if clinically indicated. This is an FDA-approved assay and its performance characteristics were verified by the microbiology laboratory at the [facility] (CLIA Accreditation # [id number] and CAP Accreditation # [id number]). Results must be interpreted within the context of all relevant clinical and laboratory findings. Assay should not be used for monitoring response to therapy. Result Zachary Lomeli MD MICROBIOLOGY - GENERAL ORDERABLES Final Result [facility] Unless otherwise noted, all lab tests performed by: Division of Pathology and Laboratory Medicine [facility] [place] [address] * OSI Chest (06/02/2024 2:47 PM MARINE ARCHITECT) Narrative Systemgenerated, Documentation - 06/03/2024 2:47 PM MARINE ARCHITECT Study acquired at another institution. For comparison only. No [facility] originated interpretation requested or available. Result [facility] Sarah Lomeli MD IMG OUTSIDE IMAGE ORDER MICHELA Final Result * OSI CT Brain (06/02/2024 2:47 PM MARINE ARCHITECT) Narrative Systemgenerated, Documentation - 06/03/2024 2:47 PM MARINE ARCHITECT Study acquired at another institution. For comparison only. No [facility] originated interpretation requested or available. Result [facility] Sarah Lomeli MD IMG OUTSIDE IMAGE ORDER MICHELA Final Result * OSI CT ABDOMEN AND PELVIS (06/02/2024 2:47 PM MARINE ARCHITECT) 06/03/2024 2:48 PM MARINE ARCHITECT Impressions [id number] - 06/03/2024 3:13 PM MARINE ARCHITECT 1. Interpretation of outside CT examination. Limited unenhanced CT examination. 2. No prior imaging for comparison. Poorly defined large up to 9.7 cm soft tissue density in the region of the uterine cervix filling the vagina likely correspond to the patient clinical diagnosis of cervical cancer. Enlarged common and internal right iliac lymph nodes which are likely metastatic. 3. There is a 3.5 cm central uterine gas containing fluid collection extending across the serosal surface of the uterine fundus with an adjacent 3.9 cm gas containing fluid collection abutting the bladder dome which could represent part of the necrotic tumor extending into the uterus and fundal serosal surface or a separate infected collection. There is also an associated separate 4.7 cm gas containing collection in the right adnexa most likely representing an abscess given the presentation. 4. Small gas foci in the urinary bladder are likely related to the indwelling Mays catheter although a ureterovesicular fistula cannot be entirely excluded but felt to be unlikely. Findings discussed with Sarah Jaime by Dr. Dulce Cota M.D at 06/03/2024 3:11 PM. ACTIONABLE ITEMS/RECOMMENDATIONS*: None. *An Actionable Finding is a finding that may be unrelated to the original reason for imaging but potentially actionable, meaning further investigation may be necessary. The Actionable Findings Vigilance Unit (AFVU) assists medical providers with responding to additional radiologic findings that are unexpected and potentially actionable. Narrative [id number] - 06/03/2024 3:13 PM MARINE ARCHITECT FULL RESULT: Examination: OSI CT ABDOMEN AND PELVIS on 06/02/2024 2:47 PM. Clinical History: Sepsis Cancer Cervix neoplasm Type 2 diabetes mellitus, not otherwise specified Renal insufficiency Leukocytosis. Indication: Concerned about an alternative diagnosis.. Comparison: None. Technique: OSI CT ABDOMEN AND PELVIS. FINDINGS: Limited evaluation of the solid organs and vascular structures due to lack of IV contrast. Lower Thorax: No suspicious pulmonary nodules in the lung bases. No fluid in the pleural space. Hepatobiliary: No definite suspicious hepatic lesion. No biliary dilatation. Layering gallbladder sludge versus tiny calculi. No cholecystitis. Spleen: No splenomegaly. Pancreas: No mass or ductal dilatation. Adrenal Glands: No mass. Kidneys, Ureters, Bladder: No hydronephrosis. No suspicious renal lesion. Urinary bladder is decompressed with a Mays catheter in place. Small gas foci in the urinary bladder. Gastrointestinal Tract: No obstruction. Diffuse colonic diverticulosis with no signs of acute inflammation.. Normal appendix. Pelvic Organs: There is marked distention of the vagina containing heterogeneous high attenuation density measuring up to 9.7 cm. No extension into the pelvic sidewall. There is an ill-defined approximately 3.5 cm gas containing fluid collection in the central aspect of the uterus #17 with extension across the serosal surface along the fundus into the adjacent fat with a 3.9 cm gas containing fluid collection abutting the urinary bladder fundus #74. There is also a 4.7 cm gas containing fluid collection in the right adnexa #78. Peritoneum/Retroperitoneum: No ascites. No free peritoneal air. Lymph Nodes: Likely metastatic iliac adenopathy with the fuels sales representative example of the largest as follows: * 1.8 cm right common iliac #55 * 2 cm right internal iliac #65 No retroperitoneal lymphadenopathy. Musculoskeletal: No suspicious skeletal lesion. Right femoral access catheter with the tip in the external iliac vein. Procedure Note Dulce Patino MD - 06/03/2024 FULL RESULT: Examination: OSI CT ABDOMEN AND PELVIS on 06/02/2024 2:47 PM. Clinical History: Sepsis Cancer Cervix neoplasm Type 2 diabetes mellitus, not otherwise specified Renal insufficiency Leukocytosis. Indication: Concerned about an alternative diagnosis.. Comparison: None. Technique: OSI CT ABDOMEN AND PELVIS. FINDINGS: Limited evaluation of the solid organs and vascular structures due to lackof IV contrast. Lower Thorax: No suspicious pulmonary nodules in the lung bases. No fluidin the pleural space. Hepatobiliary: No definite suspicious hepatic lesion. No biliarydilatation. Layering gallbladder sludge versus tiny calculi. Nocholecystitis. Spleen: No splenomegaly. Pancreas: No mass or ductal dilatation. Adrenal Glands: No mass. Kidneys, Ureters, Bladder: No hydronephrosis. No suspicious renal lesion. Urinary bladder is decompressed with a Mays catheter in place. Small gasfoci in the urinary bladder. Gastrointestinal Tract: No obstruction. Diffuse colonic diverticulosiswith no signs of acute inflammation.. Normal appendix. Pelvic Organs: There is marked distention of the vagina containingheterogeneous high attenuation density measuring up to 9.7 cm. Noextension into the pelvic sidewall. There is an ill-defined approximately3.5 cm gas containing fluid collection in the central aspect of the uterus#17 with extension across the serosal surface along the fundus into theadjacent fat with a 3.9 cm gas containing fluid collection abutting theurinary bladder fundus #74. There is also a 4.7 cm gas containing fluidcollection in the right adnexa #78. Peritoneum/Retroperitoneum: No ascites. No free peritoneal air. Lymph Nodes: Likely metastatic iliac adenopathy with the representativeexample of the largest as follows: * 1.8 cm right common iliac #55 * 2 cm right internal iliac #65 No retroperitoneal lymphadenopathy. Musculoskeletal: No suspicious skeletal lesion. Right femoral access catheter with the tip in the external iliac vein. IMPRESSION: 1. Interpretation of outside CT examination. Limited unenhanced CTexamination. 2. No prior imaging for comparison. Poorly defined large up to 9.7 cmsoft tissue density in the region of the uterine cervix filling the vaginalikely correspond to the patient clinical diagnosis of cervical cancer.Enlarged common and internal right iliac lymph nodes which are likelymetastatic. 3. There is a 3.5 cm central uterine gas containing fluid collectionextending across the serosal surface of the uterine fundus with anadjacent 3.9 cm gas containing fluid collection abutting the bladder domewhich could represent part of the necrotic tumor extending into the uterusand fundal serosal surface or a separate infected collection. There isalso an associated separate 4.7 cm gas containing collection in the rightadnexa most likely representing an abscess given the presentation. 4. Small gas foci in the urinary bladder are likely related to theindwelling Mays catheter although a ureterovesicular fistula cannot beentirely excluded but felt to be unlikely. Findings discussed with Sarah Jaime by Dr. Oly M.D at 06/03/2024 3:11 PM. ACTIONABLE ITEMS/RECOMMENDATIONS*: None. *An Actionable Finding is a finding that may be unrelated to the originalreason for imaging but potentially actionable, meaning furtherinvestigation may be necessary. The Actionable Findings Vigilance Unit(AFVU) assists medical providers with responding to additional radiologicfindings that are unexpected and potentially actionable. 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
[2024-06-11] MEDS ORDERED: NA CHLORIDE 0.9% 2,000 ML ONE (14:55)
[2024-06-11] MEDS ORDERED: VANCOMYCIN 1 GM/VIAL ONE (15:18)
[2024-06-11] MEDS ORDERED: CEFEPIME 1 GM/VIAL ONE (15:18)
[2024-06-11] MEDS ORDERED: NA CHLORIDE 0.9% 250 ML ONE (15:18)
[2024-06-11] MEDS ORDERED: NA CHLORIDE 0.9% 100 ML ONE (15:18)
[2024-06-11] MEDS ORDERED: NA CHLORIDE 0.9% 500 ML ONE ×2 (15:21→15:55)
[2024-06-11 15:26] LABS: Absolute Basophils 0.1 K/uL (0-0.5); Absolute Eosinophils 0.1 K/uL (0-0.5); Absolute Lymphocytes (CBC) 1.5 K/uL (0.7-4.9); Absolute Monocytes 0.4 K/uL (0.1-1.3); Absolute Neutrophil 9.6 K/uL (1.8-8.0); Basophils % 0.7 % (0-1.3); Eosinophils % 0.8 % (0-4.4); Hematocrit 23.7 % (36.0-45.0); Hemoglobin 8.2 g/dL (12.0-15.0); Lymphocytes % 12.5 % (15.3-44.8); MCH 30.1 pg (27.0-35.0); MCHC 34.7 g/dL (32.0-36.0); MCV 86.7 fL (80-100); MPV 7.2 fL (7.6-11.3); Monocytes % 3.6 % (3.3-12.3); Neutrophils % 82.4 % (41.7-73.7); Nucleated Red Blood Cells % 0.1 % (0-0); Platelets 529 thou/uL (152-406); RBC Red Blood Cell Count 2.74 M/uL (3.86-4.86); Red Cell Distribution Width 17.6 % (12.1-15.2)
[2024-06-11 15:41] LABS: AST/SGOT 28 U/L (15-37); Albumin 1.8 g/dL (3.4-5.0); Albumin/Globulin Ratio 0.4 (1.1-1.8); Alkaline Phosphatase 99 U/L (45-117); Anion Gap 16.6 mEq/L (5.0-15.0); BUN Blood Urea Nitrogen 6 mg/dL (7-18); Bicarbonate 20 mEq/L (21-32); Bilirubin Total 0.4 mg/dL (0.2-1.0); Glomerular Filtration Rate 47 ml/min (=/>90); Glucose Level 110 mg/dL (74-106); Potassium 3.6 mEq/L (3.5-5.1); Protein, Total 6.8 g/dL (6.4-8.2); Sodium Level 134 mEq/L (136-145); Troponin High Sensitivity 18.8 pg/mL (<58.9)
[2024-06-11 15:51] LABS: ALT/SGPT < 14 U/L (13-56)
[2024-06-11 15:53] LABS: PT Prothrombin Time 14.2 SECONDS (9.4-12.5); Protime INR 1.36
[2024-06-11 15:54] LABS: PTT, Activated Partial Thromb 24.1 SECONDS (24.3-36.9)
[2024-06-11] MEDS ORDERED: MORPHINE 4 MG/ML SYR ONE (16:21)
[2024-06-11] MEDS ORDERED: ONDANSETRON 4 MG/2 ML VIAL ONE (16:21)
--- NOTE | 2024-06-11 17:18 | RAD REPORT ---
Procedure: Chest Single View HISTORY: Hypotension COMPARISON: 2016 FINDINGS: The lungs appear clear of acute infiltrate. No significant pleural effusion noted. The heart is normal size. IMPRESSION: No acute abnormality is displayed.
--- NOTE | 2024-06-11 18:25 | RAD REPORT ---
EXAMINATION: CT ABDOMEN AND PELVIS WITH CONTRAST CLINICAL INDICATION: Abdominal pain TECHNIQUE: CT abdomen and pelvis was performed, after the administration of 100 cc Isovue-300.. Sagit chiki and coronal reconstructions were obtained. One or more of the following dose reduction techniques were used: Automated exposure control, adjustment of the mA and kV according to patient si ze, and iterative reconstruction. Unless otherwise specified, incidental findings do not require dedicated imaging follow-up. [id number]. Oral contrast was not given which limits evaluation of bowel and appendix. COMPARISON: .May 24, 2024 FINDINGS: Liver, spleen, pancreas, adrenals and kidneys appear unremarkable Small duodenal diverticulum. 13 cm cervical mass extends into the uterus. The mass is necrotic. Fluid is present within the endome trium. A percutaneous catheter has been placed since the prior exam. The tip lies adjacent to the dome of th e bladder. A 2.8 cm abscess containing air and fluid is present within the right adnexa adjacent to the right as pect of the uterus. No evidence of diverticulitis. Normal appendix IMPRESSION: 13 cm cervical mass extending into the uterus consistent with neoplasm. Bladder wall thickening probably inflammation. In addition, the mass abuts a portion of the bladder s o there may be involvement of the bladder by the cervical neoplasm. 2.8 cm right adnexal abscess
--- NOTE | 2024-06-11 19:38 | EDPHYS ---
Physician Documentation [facility] Name: Christa Jackson Age: 69 yrs Sex: Female : 1955 Arrival Date: 06/11/2024 Time: 14:32 Bed 4 Private MD: ED Physician Noman Cardona HPI: 06/11 16:39 This 69 yrs old Female presents to ER via Wheelchair with complaints of Low rt blood pressure, Weakness. 16:39 Patient presents to the ED from her oncologist office for hypotension. Patient had a rt recent hemorrhagic blood loss. Recent transfer for TOA, has a BARON drain in place at the daughter states is draining appropriately. States that she is feeling weak, complains of abdominal pain. Symptoms are severe in severity, no other aggravating or alleviating factors.. Historical: - Allergies: 14:46 No Known Allergies; jb4 - PMHx: 14:46 Cervical cancer (stage 3) (Hypertension); Depression; Diabetes - IDDM; High jb4 Cholesterol; Hypertension; - PSHx: 14:46 hernia repair; jb4 - Immunization history:: Adult Immunizations unknown. - Infectious Disease History:: Denies. MRSA (w/in 1 year), . - Family history:: not pertinent. - Social history:: Smoking status: Patient denies any tobacco usage or history of. ROS: 16:39 Cardiovascular: Negative for chest pain, palpitations, and edema, Respiratory: Negative rt for shortness of breath, cough, wheezing, and pleuritic chest pain, MS/Extremity: Negative for injury and deformity, Skin: Negative for injury, rash, and discoloration, Neuro: Negative for headache, weakness, numbness, tingling, and seizure, 16:39 Constitutional: Positive for body aches, fatigue, 16:39 Abdomen/GI: Positive for abdominal pain, nausea, Exam: 16:39 Head/Face: Normocephalic, atraumatic. Chest/axilla: Normal chest wall appearance and rt motion. Nontender with no deformity. No lesions are appreciated. Cardiovascular: Regular rate and rhythm with a normal S1 and S2. No gallops, murmurs, or rubs. Normal PMI, no JVD. No pulse deficits. Respiratory: Lungs have equal breath sounds bilaterally, clear to auscultation and percussion. No rales, rhonchi or wheezes noted. No increased work of breathing, no retractions or nasal flaring. Skin: Warm, dry with normal turgor. Normal color with no rashes, no lesions, and no evidence of cellulitis. MS/ Extremity: Pulses equal, no cyanosis. Neurovascular intact. Full, normal range of motion. Neuro: Awake and alert, GCS 15, oriented to person, place, time, and situation. Cranial nerves II-XII grossly intact. Motor strength 5/5 in all extremities. Sensory grossly intact. Cerebellar exam normal. Normal gait. 16:39 Constitutional: The patient appears In acute distress 16:39 ECG was reviewed by the Attending Physician. 16:39 Abdomen/GI: BARON drain in place, mild tenderness diffusely without rebound, guarding, distention, Vital Signs: 14:46 BP 56 / 29; Pulse 100; Resp 20; Temp 98.6(O); Pulse Ox 97% on R/A; Weight 86.64 kg (R); jb4 Height 5 ft. 4 in. (R); 14:50 BP 61 / 47; Pulse 89; Resp 18 S; Pulse Ox 99% on R/A; aa5 14:55 BP 70 / 51; Pulse 90; aa5 15:00 BP 79 / 53; Pulse 87; aa5 15:25 BP 88 / 53; Pulse 79; Resp 15; Temp 98.5(O); Pulse Ox 98% on R/A; aa5 15:45 BP 104 / 52; Pulse 78; Resp 20 S; Temp 98.3(O); Pulse Ox 98% on R/A; aa5 16:30 BP 115 / 73; Pulse 82; Resp 18 S; Temp 98.4(O); Pulse Ox 98% on R/A; aa5 17:20 BP 136 / 74; Pulse 82; Resp 16 S; Temp 98.3(O); Pulse Ox 99% on R/A; aa5 18:31 BP 136 / 72; Pulse 76; Resp 14 S; Pulse Ox 99% on R/A; aa5 19:00 BP 125 / 74; Pulse 79; Resp 15; Pulse Ox 99% on R/A; al5 19:30 BP 139 / 80; Pulse 77; Resp 16; Pulse Ox 96% on R/A; al5 20:00 BP 119 / 77; Pulse 79; Resp 18; Pulse Ox 99% on R/A; al5 20:30 BP 129 / 77; Pulse 79; Resp 16; Pulse Ox 97% on R/A; al5 21:00 BP 132 / 63; Pulse 77; Resp 15; Pulse Ox 96% on R/A; al5 14:46 Body Mass Index 32.78 (86.64 kg, 162.56 cm) jb4 MDM: 15:00 Medical Screening Exam initiated rt 20:18 Data reviewed: vital signs, nurses notes. Consideration of Admission/Observation rt Patient was admitted/placed on observation. Management of patient was discussed with the following: Perinatal Specialist: Discussed with nelli Esquivel to keep patient at this hospital. Will consult.. I considered the following discharge prescriptions or medication management in the emergency department Medications were administered in the Emergency Department. See MAR. Independent interpretation of the following test(s) in the Emergency Department CT Scan: My interpretation is No bowel obstruction seen on interpretation of CT scan images. Care significantly affected by the following chronic conditions: Cervical cancer. Post IV fluid administration reassessment for Sepsis: Client prescribed 30 mL/kg IVF. Sepsis focused reassessment complete. Focused assessment performed: June 11, 2024 at 18:00 Heart: Regular rate/rhythm. Lungs: noted to be clear bilaterally. Neuro: Cardio: Cardiovascular exam improved from previous exam. Heart rate and blood pressure have improved. Counseling: I had a detailed discussion with the patient and/or guardian regarding the historical points, exam findings, and any diagnostic results supporting the discharge/admit diagnosis, lab results, radiology results, the need for further work-up and treatment in the hospital. Response to treatment: the patient's symptoms have markedly improved after treatment. 06/11 15:04 Order name: Blood Culture Adult (2) rt 06/11 15:04 Order name: CBC with Diff; Complete Time: 15:39 rt 06/11 15:04 Order name: CMP; Complete Time: 16:03 rt 06/11 15:04 Order name: Lactate w/ 2H reflex if indic.; Complete Time: 16:03 rt 06/11 15:04 Order name: Protime (+inr); Complete Time: 16:03 rt 06/11 15:04 Order name: Ptt, Activated; Complete Time: 16:03 rt 06/11 15:04 Order name: Type And Screen rt 06/11 15:04 Order name: Troponin High Sensitivity; Complete Time: 16:03 rt 06/11 15:17 Order name: Packed RBC Leukored EDMS 06/11 15:59 Order name: Ghost Lactate-NO COLLECT Timer; Complete Time: 18:28 EDMS 06/11 19:37 Order name: Lactate Sepsis 2 HR Follow-up EDMS 06/11 19:49 Order name: Lactate w/ 2H reflex if indic. EDMS 06/11 19:49 Order name: Magnesium EDMS 06/11 19:49 Order name: Phosphorus EDMS 06/11 19:49 Order name: Urinalysis w/ reflexes EDMS 06/11 19:49 Order name: Basic Metabolic Panel EDPA 06/11 19:49 Order name: Basic Metabolic Panel EDPA 06/11 19:49 Order name: CBC with Automated Diff EDMS 06/11 19:49 Order name: CBC with Automated Diff EDMS 06/11 19:49 Order name: Lipid Profile EDPA 06/11 19:49 Order name: Lipid Profile EDPA 06/11 15:04 Order name: Chest Single View XRAY; Complete Time: 17:32 rt 06/11 15:04 Order name: CT Abd/Pelvis - IV Contrast Only; Complete Time: 18:28 rt 06/11 15:04 Order name: EKG; Complete Time: 15:05 rt 06/11 20:39 Order name: Occupational Therapy Consult EDPA 06/11 20:39 Order name: Physical Therapy Consult EDPA 06/11 15:04 Order name: Accucheck; Complete Time: 15:09 rt 06/11 15:04 Order name: Cardiac monitoring; Complete Time: 15:09 rt 06/11 15:04 Order name: EKG - Nurse/Tech; Complete Time: 15:09 rt 06/11 15:04 Order name: IV Saline Lock - Large Bore; Complete Time: 15:09 rt 06/11 15:04 Order name: Labs collected and sent; Complete Time: 15:09 rt 06/11 15:04 Order name: O2 Per Protocol; Complete Time: 15:09 rt 06/11 15:04 Order name: O2 Sat Monitoring; Complete Time: 15:09 rt 06/11 15:04 Order name: Vital Signs; Complete Time: 15:09 rt 06/11 15:51 Order name: EKG - Nurse/Tech; Complete Time: 15:51 rt 06/11 15:51 Order name: Misc. Order: For 30 cc/kg bolus, subtract fluids already given; Complete rt Time: 15:52 06/11 17:59 Order name: Pelvic Exam Setup; Complete Time: 17:59 aa5 EC:39 Rate is 85 beats/min. Rhythm is regular, Normal Sinus Rhythm with No ectopy. QRS [place] rt is Normal. [place] interval is normal. QRS interval is normal. QT interval is normal. No Q waves. Administered Medications: 15:33 Drug: NS 0.9% IV 1000 ml IV at 1 bolus Per protocol; to be given as a bolus over 60 ko1 minutes Route: IV; Rate: 1 bolus; Site: right antecubital; 16:34 Follow up: IV Status: Completed infusion; IV Intake: 1000ml aa5 15:33 Drug: Cefepime IVPB 2 grams IVPB at 200 ml/hr once over 30 mins; (mix in NS 100 mL) ko1 Route: IVPB; Rate: 200 ml/hr; Infused Over: 30 mins; Site: left antecubital; 16:03 Follow up: Response: No adverse reaction; IV Status: Completed infusion aa5 15:38 Drug: vancoMYCIN IVPB 1 grams IVPB once over 2 hrs Route: IVPB; Infused Over: 2 hrs; ko1 Site: left antecubital; 17:38 Follow up: Response: No adverse reaction; IV Status: Completed infusion aa5 15:51 Drug: NS 0.9% IV 1600 ml IV at 1000 ml once; to be given as a bolus over 90 minutes aa5 Route: IV; Rate: 1000 ml; Site: right antecubital; 17:20 Follow up: IV Status: Completed infusion; IV Intake: 1600ml aa5 15:52 CANCELLED (Duplicate Order): ns 0.9% (30 ml/kg) 30 ml/kg IV at bolus once; Sepsis aa5 Protocol; to be given as a bolus over 90 minutes, 16:25 Drug: Ondansetron IVP 4 mg IVP once; over 2 minutes Route: IVP; Site: right antecubital;aa5 16:34 Follow up: Response: No adverse reaction aa5 16:27 Drug: morphine IVP or IV 4 mg IVP once over 4 mins Route: IVP; Infused Over: 4 mins; aa5 Site: right antecubital; 16:34 Follow up: Response: No adverse reaction aa5 Disposition Summary: 06/11/24 19:37 Hospitalization Ordered Notes: Hospitalization Status: Inpatient Admission rt Provider: Prince [place] rt Location: Telemetry/MedSurg (Inpatient) rt Condition: Serious rt Problem: new rt Symptoms: have improved rt Bed/Room Type: Standard rt Room Assignment: 202(06/11/24 20:08) rv1 Diagnosis - Pelvic abscess rt - Septic shock rt Forms: - Medication Reconciliation Form rt - SBAR form rt - Leadership Thank You Letter rt Critical care time excluding procedures: 20:18 Critical care time: Bedside Care: 30 minutes, Consultation: 10 minutes. Total time: 40 rt minutes Signatures: Dispatcher [employer] EDMS Lewis Betancourt MD MD rn Calderon, Donita RN RN aa5 Gerald Willis, RN RN jb4 Meera Bear RN RN ko1 Noman Cardona MD MD rt Peggy Francois rv1 Corrections: (The following items were deleted from the chart) 15:05 15:05 BLOOD CULTURE*+BA.LAB.BRZ ordered. EDMS EDMS 15:05 15:05 CBC+H.LAB.BRZ ordered. EDMS EDMS 15:05 15:05 COMPREHENSIVE METABOLIC PANEL+C.LAB.BRZ ordered. EDMS EDMS 15:05 15:05 LACTATE+C.LAB.BRZ ordered. EDMS EDMS 15:05 15:05 PROTIME (+INR)+COAG.LAB.BRZ ordered. EDMS EDMS 15:05 15:05 PTT, ACTIVATED+COAG.LAB.BRZ ordered. EDMS EDMS 15:05 15:05 TYPE AND SCREEN+BB.LAB.BRZ ordered. EDMS EDMS 15:05 15:05 Troponin High Sensitivity+C.LAB.BRZ ordered. EDMS EDMS 15:52 15:51 NS 0.9% IV (30 ml/kg) 30 ml/kg IV at bolus once; Sepsis Protocol; to be given as aa5 a bolus over 90 minutes, ordered. rt 16:41 15:17 RBC Leukored Pheresis ordered. EDMS EDMS 20:08 19:37 rt rv1
--- NOTE | 2024-06-11 19:38 | ER ---
Nurse's Notes [facility] Name: Christa Jackson Age: 69 yrs Sex: Female : 1955 Arrival Date: 06/11/2024 Time: 14:32 Bed 4 Private MD: Diagnosis: Pelvic abscess;Septic shock Presentation: 06/11 14:46 Acuity: NOMAN 1 jl7 14:46 Chief complaint: Patient's son or daughter states: She was sent here by her PCP for a jb4 blood pressure in the 80's/40's. She has cervical cancer and is bleeding and she was in [place] a week ago and received blood and was transferred to [place]. Coronavirus screen: At this time, the client does not indicate any symptoms associated with coronavirus-19. Ebola Screen: No symptoms or risks identified at this time. 14:46 Method Of Arrival: Wheelchair jb4 14:46 Initial Sepsis Screen: Does the patient meet any 2 criteria? RR > 20 per min. HR > 90 jb4 bpm. Yes Does the patient have a suspected source of infection? No. Patient's initial sepsis screen is negative. If YES to both, name of provider notified: Noman Cardona MD Risk Assessment: Do you want to hurt yourself or someone else? Patient reports no desire to harm self or others. Onset of symptoms was June 11, 2024. Transition of care: patient was not received from another setting of care. Historical: - Allergies: 14:46 No Known Allergies; jb4 - PMHx: 14:46 Cervical cancer (stage 3) (Hypertension); Depression; Diabetes - IDDM; High jb4 Cholesterol; Hypertension; - PSHx: 14:46 hernia repair; jb4 - Immunization history:: Adult Immunizations unknown. - Infectious Disease History:: Denies. MRSA (w/in 1 year), . - Family history:: not pertinent. - Social history:: Smoking status: Patient denies any tobacco usage or history of. Screenin:57 [facility] ED Fall Risk Assessment (Adult) History of falling in the last 3 months, ko1 including since admission No falls in past 3 months (0 pts) Confusion or Disorientation No (0 pts) Intoxicated or Sedated No (0 pts) Impaired Gait No (0 pts) Mobility Assist Device Used No (0 pt) Altered Elimination No (0 pt) Score/Fall Risk Level 0 - 2 = Low Risk Oriented to surroundings, Maintained a safe environment, Educated pt \T\ family on fall prevention, incl call for assistance when getting out of bed, Assessed \T\ reinforced patient's understanding of fall precautions, Provided non-skid footwear, Hourly rounding (assess needs \T\ fall precautionary measures) done. Abuse screen: Denies threats or abuse. Denies injuries from another. Nutritional screening: No deficits noted. Tuberculosis screening: No symptoms or risk factors identified. Assessment: 14:57 General: Appears in no apparent distress. Behavior is calm, cooperative, appropriate ko1 for age. Pain: Denies pain. Neuro: No deficits noted. Cardiovascular: No deficits noted. Patient's skin is warm and dry. low bp. Respiratory: No deficits noted. GI: No deficits noted. : No deficits noted. No signs and/or symptoms were reported regarding the genitourinary system. EENT: No deficits noted. No signs and/or symptoms were reported regarding the EENT system. Derm: No deficits noted. No signs and/or symptoms reported regarding the dermatologic system. Musculoskeletal: No deficits noted. No signs and/or symptoms reported regarding the musculoskeletal system. 15:10 General: Appears comfortable, Behavior is calm, cooperative. Pain: Complains of pain in aa5 right lower quadrant and left lower quadrant Pain currently is 8 out of 10 on a pain scale. Quality of pain is described as tender, Is continuous. Neuro: Level of Consciousness is awake, alert, obeys commands, Oriented to person, place, time, situation. Cardiovascular: Heart tones S1 S2 present Rhythm is regular. Respiratory: Airway is patent Respiratory effort is even, unlabored, Respiratory pattern is regular, symmetrical. GI: Abdomen is round obese, Pt's daughter reports internal abscess with BARON drain in place noted to LLQ. Abdomen is tender to palpation in right lower quadrant and left lower quadrant Patient currently denies nausea. : Reports Hx of cervical cancer, reports vaginal spotting daily. Reports she is not receiving cancer treatment at this time. EENT: No signs and/or symptoms were reported regarding the EENT system. Derm: Skin is pink, warm \T\ dry. Musculoskeletal: Range of motion: intact in all extremities. 15:45 Reassessment: RBC unit # 1 started at 1530, started at 50mls/hr. No adverse reactions aa5 noted or reported, infusion currently at 150mls/hr. See blood transfusion record for more information and complete VS. . 16:00 Reassessment: Patient is alert, oriented x 3, equal unlabored respirations, skin aa5 warm/dry/pink. Pt's daughter remains at bedside. . 16:25 Reassessment: Patient is alert, oriented x 3, equal unlabored respirations, skin aa5 warm/dry/pink. 17:20 Reassessment: RBC unit # 1 completed . aa5 17:20 Reassessment: Patient is alert, oriented x 3, equal unlabored respirations, skin aa5 warm/dry/pink. 17:55 Reassessment: Pt cleaned of urinary incontinence, moderate amount of vaginal bleeding aa5 noted with clots, pt's daughter reports moderate bleeding just started. Clean brief applied. MD notified of vaginal bleeding. Pt now to CT scan via stretcher. . 18:25 Reassessment: Patient is alert, oriented x 3, equal unlabored respirations, skin aa5 warm/dry/pink. 19:05 General: Appears in no apparent distress. comfortable, Behavior is calm, cooperative. al5 Pain: Denies pain. Neuro: Level of Consciousness is awake, alert, obeys commands, Oriented to person, place, time, situation. Cardiovascular: Capillary refill < 3 seconds Patient's skin is warm and dry. Rhythm is sinus rhythm. Respiratory: Airway is patent Respiratory effort is even, unlabored, Respiratory pattern is regular, symmetrical. GI: Abdomen is round non-distended, obese. : minimal bleeding from vagina. 19:05 EENT: No signs and/or symptoms were reported regarding the EENT system. Derm: Skin is al5 intact, Skin is pink, warm \T\ dry. normal. Musculoskeletal: Range of motion: intact in all extremities, generalized weakness. 20:20 Reassessment: Patient appears in no apparent distress at this time. No changes from al5 previously documented assessment. Patient and/or family updated on plan of care and expected duration. Pain level reassessed. Patient is alert, oriented x 3, equal unlabored respirations, skin warm/dry/pink. 21:04 Reassessment: Patient appears in no apparent distress at this time. No changes from al5 previously documented assessment. Patient and/or family updated on plan of care and expected duration. Pain level reassessed. Patient is alert, oriented x 3, equal unlabored respirations, skin warm/dry/pink. Vital Signs: 14:46 BP 56 / 29; Pulse 100; Resp 20; Temp 98.6(O); Pulse Ox 97% on R/A; Weight 86.64 kg (R); jb4 Height 5 ft. 4 in. (R); 14:50 BP 61 / 47; Pulse 89; Resp 18 S; Pulse Ox 99% on R/A; aa5 14:55 BP 70 / 51; Pulse 90; aa5 15:00 BP 79 / 53; Pulse 87; aa5 15:25 BP 88 / 53; Pulse 79; Resp 15; Temp 98.5(O); Pulse Ox 98% on R/A; aa5 15:45 BP 104 / 52; Pulse 78; Resp 20 S; Temp 98.3(O); Pulse Ox 98% on R/A; aa5 16:30 BP 115 / 73; Pulse 82; Resp 18 S; Temp 98.4(O); Pulse Ox 98% on R/A; aa5 17:20 BP 136 / 74; Pulse 82; Resp 16 S; Temp 98.3(O); Pulse Ox 99% on R/A; aa5 18:31 BP 136 / 72; Pulse 76; Resp 14 S; Pulse Ox 99% on R/A; aa5 19:00 BP 125 / 74; Pulse 79; Resp 15; Pulse Ox 99% on R/A; al5 19:30 BP 139 / 80; Pulse 77; Resp 16; Pulse Ox 96% on R/A; al5 20:00 BP 119 / 77; Pulse 79; Resp 18; Pulse Ox 99% on R/A; al5 20:30 BP 129 / 77; Pulse 79; Resp 16; Pulse Ox 97% on R/A; al5 21:00 BP 132 / 63; Pulse 77; Resp 15; Pulse Ox 96% on R/A; al5 14:46 Body Mass Index 32.78 (86.64 kg, 162.56 cm) jb4 ED Course: 14:33 Patient arrived in ED. im 14:36 Noman Cardona MD is Attending Physician. rt 14:50 Patient has correct armband on for positive identification. Bed in low position. Call aa5 light in reach. Side rails up X2. Client placed on continuous cardiac and pulse oximetry monitoring. NIBP monitoring applied. school lunch monitor on. 14:50 Arm band placed on. aa5 14:57 Provided Education on: labs/blood. Door closed. Noise minimized. Lights dimmed. Warm ko1 blanket given. Pillow given. 14:58 Triage completed. jl7 15:00 Inserted saline lock: 18 gauge in right antecubital area, using aseptic technique. jb4 Blood collected. 15:00 First set of blood cultures drawn by me. jb4 15:00 Inserted saline lock: 20 gauge in left forearm, using aseptic technique. Flushed with aa5 10 mL NS. 15:17 Second set of blood cultures drawn by me. aa5 15:20 Inserted saline lock: 22 gauge in left forearm, using aseptic technique. Flushed with aa5 10 mL NS. 15:33 Chest Single View XRAY In Process Unspecified. EDMS 15:49 Donita Nichols, TESSIE is Primary Nurse. aa5 16:42 No provider procedures requiring assistance completed. aa5 18:04 CT Abd/Pelvis - IV Contrast Only In Process Unspecified. EDMS 18:23 Repeat lactate drawn and sent to lab. aa5 18:25 Assist provider with pelvic exam: Set up pelvic tray. Performed by Noman Cardona MD aa5 Patient tolerated poorly. Bleeding is now a small amount, no vaginal packing needed per . 18:47 initiated transfer with Carole at [place]. rv1 19:00 Report given to TESSIE Barrera. aa5 19:14 Sonu declined due to capacity. rv1 19:36 Prince Grady MD is Hospitalizing Provider. rt 20:26 Patient admitted, IV remains in place. al5 Administered Medications: 15:33 Drug: NS 0.9% IV 1000 ml IV at 1 bolus Per protocol; to be given as a bolus over 60 ko1 minutes Route: IV; Rate: 1 bolus; Site: right antecubital; 16:34 Follow up: IV Status: Completed infusion; IV Intake: 1000ml aa5 15:33 Drug: Cefepime IVPB 2 grams IVPB at 200 ml/hr once over 30 mins; (mix in NS 100 mL) ko1 Route: IVPB; Rate: 200 ml/hr; Infused Over: 30 mins; Site: left antecubital; 16:03 Follow up: Response: No adverse reaction; IV Status: Completed infusion aa5 15:38 Drug: vancoMYCIN IVPB 1 grams IVPB once over 2 hrs Route: IVPB; Infused Over: 2 hrs; ko1 Site: left antecubital; 17:38 Follow up: Response: No adverse reaction; IV Status: Completed infusion aa5 15:51 Drug: NS 0.9% IV 1600 ml IV at 1000 ml once; to be given as a bolus over 90 minutes aa5 Route: IV; Rate: 1000 ml; Site: right antecubital; 17:20 Follow up: IV Status: Completed infusion; IV Intake: 1600ml aa5 15:52 CANCELLED (Duplicate Order): ns 0.9% (30 ml/kg) 30 ml/kg IV at bolus once; Sepsis aa5 Protocol; to be given as a bolus over 90 minutes, 16:25 Drug: Ondansetron IVP 4 mg IVP once; over 2 minutes Route: IVP; Site: right antecubital;aa5 16:34 Follow up: Response: No adverse reaction aa5 16:27 Drug: morphine IVP or IV 4 mg IVP once over 4 mins Route: IVP; Infused Over: 4 mins; aa5 Site: right antecubital; 16:34 Follow up: Response: No adverse reaction aa5 Medication: 16:35 VIS not applicable for this client. aa5 Intake: 16:34 IV: 1000ml; Total: 1000ml. aa5 17:20 IV: 1600ml; Total: 2600ml. aa5 Outcome: 19:37 Decision to Hospitalize by Provider. rt 21:20 Admitted to Med/surg accompanied by tech, via stretcher, room 202, with chart, al5 21:20 Condition: stable 21:20 Instructed on the need for admit, 21:21 Patient left the ED. al5 Signatures: Dispatcher [employer] EDMS Donita Nichols RN RN aa5 Gerald Willis RN RN [id number] Liam Miles RN RN jl7 Meera Bear RN RN ko1 Noman Cardona MD MD rt Peggy Francois rv1 Lucero Romero Amanda RN RN al5 Corrections: (The following items were deleted from the chart) 15:53 15:00 Inserted saline lock: 20 gauge in left forearm, using aseptic technique. aa5 aa5 16:36 14:57 Patient has correct armband on for positive identification. Bed in low position. aa5 Call light in reach. Side rails up X2. ko1 16:36 14:57 Client placed on continuous cardiac and pulse oximetry monitoring. NIBP aa5 monitoring applied. school lunch monitor on. ko1 16:44 15:10 : No signs and/or symptoms were reported regarding the genitourinary system. aa5aa5 19:13 15:45 Reassessment: RBC unit # 1 started at 1530, started at 50mls/hr. No adverse aa5 reactions noted or reported, infusion currently at 150mls/hr. . aa5
[2024-06-11] MEDS ORDERED: ACETAMINOPHEN 500 MG TAB PO PRN (19:46)
--- NOTE | 2024-06-11 19:53 | P.HP ---
Certification for Inpatient Patient admitted to: Inpatient With expected LOS: >2 Midnights Practitioner: I am a practitioner with admitting privileges, knowledge of patient current condition, hospital course, and medical plan of care. Services: Services provided to patient in accordance with Admission requirements found in Title 42 Section 412.3 of the Code of Federal Regulations Patient History Date of Service: 06/11/24 Reason for admission: Hypotension History of Present Illness: Patient is a 69-year-old female with known past medical history of cervical cancer. Patient was just diagnosed with cervical cancer in March 2024. Her performance status has been progressively declining since. She is yet to be started on any chemotherapy or she was brought in from her oncologist office She is yet to start any chemotherapy, also pending to have a Port-A-Cath placed. Family states that since her diagnosis, she has been too sick to get those done. She has a recent history of tubo-ovarian abscess that required transfer to higher level of care. Patient has been having some nausea, vomiting diarrhea. Additionally, she is also been having vaginal bleeding ongoing since her diagnosis. She went to her oncologist office today and was found to be hypotensive with SBP in the 80s. She was transferred here for higher level of care. During my evaluation, patient appeared pale and frail. She received IV fluid in the ER. The blood pressure is now within normal limits. She meets sepsis criteria based on her initial labs. Allergies No Known Allergies Allergy (Unverified 09/23/15 17:27) Physical Examination - Physical Exam General: Obese, Other (Physically deconditioned and frail) HEENT: Atraumatic, Normocephalic Respiratory: Clear to auscultation bilaterally, Normal air movement Cardiovascular: No edema, Normal pulses, Regular rate/rhythm, Normal S1 S2 Neurological: Normal speech - Studies Laboratory Data (last 24 hrs) 06/11/24 06/11/24 06/11/24 15:08 15:08 15:08 WBC 11.70 H Hgb 8.2 L Hct 23.7 L Plt Count 529 H PT 14.2 H INR 1.36 APTT 24.1 L Sodium 134 L Potassium 3.6 BUN 6 L Creatinine 1.22 H Glucose 110 H Total Bilirubin 0.4 AST 28 ALT < 14 Alkaline Phosphatase 99 Assessment and Plan - Problems (Diagnosis) (1) Cervical cancer Current Visit: Yes Status: Acute (2) Sepsis Current Visit: Yes Status: Acute (3) Postoperative abscess of pelvis in female Current Visit: Yes Status: Acute - Plan Assessment This is a 69-year-old female brought in from oncologist office for evaluation of hypotension. Upon arrival, patient met criteria for sepsis as evidenced by leukocytosis, lactic acidosis, hypotension and CT evidence of a pelvic abscess. General surgery has been consulted for drainage. Patient will be admitted Sepsis Pelvic abscess Cervical cancer Acute blood loss anemia, suspected from cervical cancer Generalized weakness and physical deconditioning Plan: Will admit inpatient telemetry IV fluid infusion, Zosyn Follow blood cultures Consult to general surgery Multimodal pain regimen and antiemetics PT/OT before discharge Patient is full code - Advance Directives Does patient have a Living Will: No Does patient have a Durable POA for Healthcare: No
[2024-06-11] MEDS: PIPER TAZO 3.375 GM in NA CHLORIDE 0.9% 100 ML IV SCH (20:15)
[2024-06-11] MEDS: NA CHLORIDE 0.9% 1,000 ML IV SCH (23:42)
[2024-06-11] MEDS ORDERED: HYOSCYAMINE SULF 0.125 MG TAB SL PRN (23:51)
[2024-06-11] MEDS ORDERED: hydrOXYzine HCL 25 MG TAB PO PRN (23:51)
[2024-06-12] MEDS: ONDANSETRON 4 MG/2 ML VIAL IV PRN (02:17)
[2024-06-12 04:01] LABS: Absolute Basophils 0.1 K/uL (0-0.5); Absolute Eosinophils 0.2 K/uL (0-0.5); Absolute Lymphocytes (CBC) 1.1 K/uL (0.7-4.9); Absolute Monocytes 0.5 K/uL (0.1-1.3); Absolute Neutrophil 6.9 K/uL (1.8-8.0); Eosinophils % 2.2 % (0-4.4); Hematocrit 24.4 % (36.0-45.0); Hemoglobin 8.4 g/dL (12.0-15.0); MCH 29.7 pg (27.0-35.0); MCHC 34.4 g/dL (32.0-36.0); MCV 86.2 fL (80-100); MPV 6.8 fL (7.6-11.3); Monocytes % 5.3 % (3.3-12.3); Neutrophils % 78.5 % (41.7-73.7); Platelets 386 thou/uL (152-406); RBC Red Blood Cell Count 2.83 M/uL (3.86-4.86); Red Cell Distribution Width 16.6 % (12.1-15.2)
[2024-06-12 05:16] LABS: Anion Gap 13.5 mEq/L (5.0-15.0); Magnesium 1.4 mg/dL (1.6-2.4); Phosphorus 3.1 mg/dL (2.5-4.9); Potassium 3.5 mEq/L (3.5-5.1)
[2024-06-12] MEDS: HYDROMORPHONE HCL 1 MG/ML INJ IV ONE (06:32)
[2024-06-12] MEDS: LORazepam 2 MG/ML VIAL IV ONE (06:32)
[2024-06-12] MEDS ORDERED: MORPHINE 2 MG/ML SYR IV PRN (07:11)
[2024-06-12] MEDS ORDERED: HYDROCODONE/APAP 5/325 MG TAB PO PRN (07:11)
[2024-06-12] MEDS ORDERED: FLU (Fluarix Triv) TS24-25(6MOS UP)/PF 45 MCG/0.5 ML Syringe IM ONE (08:15)
[2024-06-12] MEDS: LEVOTHYROXINE SOD 0.025 MG TAB PO SCH (08:29)
[2024-06-12] MEDS: ESCITALOPRAM 20 MG TAB PO SCH (08:30)
[2024-06-12] MEDS ORDERED: CYANOCOBALAMIN 1,000 MCG TAB PO SCH (09:00)
[2024-06-12] MEDS ORDERED: FERROUS SULFATE 325 MG TAB PO SCH (09:00)
[2024-06-12] MEDS ORDERED: HYDROMORPHONE HCL 1 MG/ML INJ IV PRN (11:51)
[2024-06-12] MEDS ORDERED: GLUCAGON 1 MG/VIAL IM PRN (11:52)
[2024-06-12] MEDS ORDERED: D10W 125 ML IV PRN (11:52)
--- NOTE | 2024-06-12 12:03 | P.PN ---
Subjective Date of Service: 06/12/24 Chief Complaint: Hypotension Subjective: No new changes The patient is sleeping, the daughter at bedside stated patient have a very poor oral intake, takes oral Dilaudid at home, she was discharged from [facility] with BARON drainage and oral antibiotics comprising of linezolid, Bactrim and fluconazole. The amount of the drain has decreased over the few days. Review of Systems is unable to be obtained Physical Examination - Vital Signs Temperature: 98.0 F Blood Pressure: 97/62 Pulse: 82 Respirations: 18 Pulse Ox (%): 94 - Physical Exam Other Physical/Emotional Findings: - Physical Exam. General: Obese, chronic ill-looking , in no apparent distress,. HEENT: Normocephalic, atraumatic, nonicteric sclera, nonanemic conjunctive. Neck: Supple, without JVD or goiter or thyroid mass. Respiratory: Normal breathing effort, clear to auscultation bilaterally, no crackles no wheezing or rhonchi. Cardiovascular: Regular rate and rhythm, S1, S2 normal, no murmur no gallop. Gastrointestinal: Normal bowel sounds, distended, tender, No ascites, , No masses, no hepatosplenomegaly, BARON drain in place, no fluid corrected. Extremities : No clubbing, No peripheral edema,. Integumentary: No rashes, petechia, suspected lesions. Lymphatics: No axilla or cervical lymphadenopathy. Neurology; drowsy, but easily awakened mobile bulbar stimuli, no focal neurologic deficit, normal affection . mood and behavior. - Studies Laboratory Data (last 24 hrs) 06/11/24 06/11/24 06/11/24 15:08 15:08 15:08 WBC 11.70 H Hgb 8.2 L Hct 23.7 L Plt Count 529 H PT 14.2 H INR 1.36 APTT 24.1 L Sodium 134 L Potassium 3.6 BUN 6 L Creatinine 1.22 H Glucose 110 H Total Bilirubin 0.4 AST 28 ALT < 14 Alkaline Phosphatase 99 Assessment And Plan - Plan Patient is a 69-year-old female with known past medical history of recent diagnosis of locally advanced cervical cancer in March 2024, no treatment yet to start, recently discharged from [facility] for oral antibiotics and antifungal for tubo-ovarian abscess with drainage. Patient has been having some nausea, vomiting diarrhea. Additionally, she is also been having vaginal bleeding ongoing since her diagnosis. She went to her oncologist office today and was found to be hypotensive with SBP in the 80s. She was transferred here for higher level of care. During my evaluation, patient appeared pale and frail. She received IV fluid in the ER. #1 locally invasive advanced cervical cancer with vaginal bleeding #2 tubo-ovarian abscess s/p drainage #3 SANJANA secondary to dehydration, resolved #4 anemia of acute blood loss and inflammation related to #1 and #2 #5 hypotension due to dehydration and acute blood loss, resolved #6 history of type [address] of abdomen and pelvis on admission personally reviewed, huge cervical cancer, right tubo-ovarian abscess, blood pressure improved after IV hydration and 1 unit packed RBC, follow-up hemoglobin 8.4, currently no sepsis, I will change antibiotics back to her home antibiotics, linezolid, Bactrim and fluconazole. Spoke to the general surgeon, no drainable abscess, BARON drain removed by surgeon, continue IV fluid with dextrose infusion, insulin sliding scale, will hold oral diabetic medication for poor oral intake plan to discharge home in a couple of days
[2024-06-12] MEDS: D5.45NS W/KCL 20MEQ 20 MEQ/1,000 ML BAG IV SCH (12:17)
[2024-06-12] MEDS: Magnesium Sulfate 2gm IVPB 2 G/50 ML BAG IV ONE (12:28)
--- NOTE | 2024-06-12 14:50 | CON ---
Date of Consultation: 06/11/2024 Reason For Consultation: Evaluate percutaneous drain for removal. History Of Present Illness: The patient is a 69-year-old female who was referred to us from Dr. Max as office for removal of a drain that [facility] placed for an abscess in the pelvis. The patient h as advanced cervical cancer and she had an abscess which was drained at [facility]. However, the christine gill did not want to go there because of traveling difficulties and drain was not putting much out an d I saw her in the office. However, based on the clinical condition, she appeared very weak and pale , although her vital signs were stable at my office. She did not appear clinically to be well. I sp linus with Dr. Matias who also evaluated the patient yesterday and sent to the emergency room for evalu ation and treatment and patient was found to be in septic shock. When she arrived to the emergency r oom, she was resuscitated, started on antibiotics and I was consulted on this patient. She is awake. She looks much better today. She is anemic, however, she did not require blood transfusion. She i s feeling better. There is no nausea, vomiting, diarrhea or constipation. She does have a blood dilan t coming out of her vagina and she has a necrotic cervical tumor present. She denies any sore throat , runny nose, cough, headaches, dizziness, chest pain, fever or chills at this time. Please note, in the ER, our staff did try to contact [facility], we were told there at capacity, they have no beds. Since I do not believe based on her CAT scan finding, I did not think that she needed another percu taneous procedure. She was admitted for IV antibiotics and treatment for her symptoms and once stabi lized, she can follow up with [facility] as an outpatient if she did so desires. Her drain that was placed by an [facility] can be removed. I reviewed both CT scans with our radiologist. Review of Systems: Otherwise unremarkable. Medical History: Significant for cervical cancer, reportedly stage III, hypertension, depression, di abetes insulin-dependent, high cholesterol. Past Surgical History: Hernia repair. Allergies: NO ALLERGIES. Social History: The patient does not smoke or drink alcohol. Family History: Noncontributory. Physical Examination: Vital Signs: Stable. She is afebrile. General: She is awake and alert. No acute distress at this time. Head and Neck: No neck masses. No JVD. Throat clear. Neck is supple. Chest: Clear. Heart: S1, S2. Abdomen: Soft, nondistended, nontender. Please see procedure note below for removal of the CT-guide d drain. Extremities: Adequately perfused, nontender. Neuro: Nonfocal. Laboratory Data: Her white count yesterday was 11.7 today is 8.7, her H and H today is 8.4 and 24.4. There is a left shift which is improving. INR is 1.36. Chemistry reviewed, essentially unremarkab le. Her lactate is back to normal at 1.2. CT again reviewed with the radiologist, which shows the i mpression is 13 cm cervical mass extending into the uterus consistent with neoplasm, bladder wall thi ckening probably inflammation in addition the mass abuts the portion of the bladder, so there may be involvement of the bladder by the cervical neoplasm. There is a 2.8 cm right adnexal mass as well. Upon further discussion with the radiologist, there is no fluid around the tip of the catheter. The catheter can be easily removed. Recommendations: Continue IV fluid, IV antibiotics support. The patient needs it from medical stand point. I will go ahead and take the drain out. Once her infection is treated and she is medically s table, we will put a Port-A-Cath in, so the patient can begin her chemotherapy as soon as possible. There is a small possibility if the chemotherapy shrinks tumor, she may be a candidate for surgical intervention. However, at this time, it is unclear that will be at [facility] [place]. /MODL Voice ID: [id number] Report ID: [id number]
[2024-06-12] MEDS: INSULIN REGULAR (HUMAN) 100 UNIT/ML SQ SCH (16:30)
[2024-06-12] MEDS ORDERED: GABAPENTIN 300 MG CAP PO SCH (17:30)
[2024-06-12] MEDS: LINEZOLID 600 MG TAB PO SCH (21:41)
[2024-06-12] MEDS: SMZ./TMP. 800/160 MG TABLET PO SCH (21:41)
[2024-06-12] MEDS: ATORVASTATIN 10 MG TAB PO SCH (21:41)
--- NOTE | 2024-06-13 07:19 | P.PN ---
Subjective Date of Service: 06/13/24 Chief Complaint: Hypotension She was seen via Tele-Medicine. Verbal consent obtained prior to visit. She was seen on rounds this morning alongside her daughter (Ms. Schultz). She denies any concerns this morning. She denies any fevers, chills, or pain. Review of Systems General: Unremarkable Respiratory: Unremarkable Cardiovascular: Unremarkable Gastrointestinal: Unremarkable Physical Examination - Vital Signs Temperature: 98.6 F Blood Pressure: 139/65 Pulse: 88 Respirations: 16 Pulse Ox (%): 98 - Physical Exam General: Alert, In no apparent distress, Oriented x3 HEENT: Atraumatic Respiratory: Other (no respiratory distress) Cardiovascular: Regular rate/rhythm (via telemetry) Other Physical/Emotional Findings: Exam limited as this is a Tele-Medicine visit Assessment And Plan - Plan # Stage III Locally Invasive Advanced Cervical Cancer complicated by Tlsqo-Qzul-Kktfsff Abscess # Likely Anemia of Chronic Inflammation - She appears to be clinically improving - General Surgery and spoke with Dr. Huber - jaswinder appreciated - Infectious Diseases (Dr. Velez) consulted - jaswinder appreciated - Continue linezolid, sulfamethoxazole-trimethoprim, fluconazole - Has outpatient follow-up with [facility] for Oncology evaluation + chemotherapy # Suspected Hypovolemic Shock due to Dehydration - resolved # KDIGO Stage I Acute Kidney Injury due to above - resolved - She was initially hypotensive on evaluation, now with normotension following fluid resuscitation # Type II Diabetes Mellitus - Continue home insulin regimen # Hypothyroidism - Continue home levothyroxine # Dyslipidemia - Continue home atorvastatin # Depression - Continue home escitalopram Disposition: She appears to be clinically improving. Continue antibiotics and obtain Infectious Diseases consultation. She will be re-assessed by on-site physician (Dr. Young) tomorrow. Jared Jones M.D.
[2024-06-13] MEDS: FLUCONAZOLE 100 MG TAB PO SCH (08:45)
[2024-06-13] MEDS: HYDROMORPHONE ORAL 2 MG TAB PO PRN (08:56)
--- NOTE | 2024-06-13 11:22 | PN ---
Date of Progress Note: 06/13/2024 Subjective: The patient is awake, alert, looks much better, is not eating well, but her pain is bett er. She appears more alert and in much less discomfort. Objective: Vital Signs: Stable. She is afebrile. Abdomen: Soft, nondistended, nontender. Positive bowel sounds. : She has had no reported recent episodes of vaginal bleeding. Laboratory Data: Reviewed. Assessment: A 69-year-old female with advanced cervical cancer, anemia, dehydration, probable sepsis on admission. Recommendations: This patient is clinically improving on hydration and currently is on her antibioti cs at [facility], discharged. I think she can perhaps be discharged and follow up with [facility] as an outpatient. I do not think she is septic at this time. I think her main issue was dehydration and anemia, which has been corrected. Her pain is well controlled. She is encouraged to eat better and there is no reason to put the patient on IV antibiotics at this time because she has not had any reason for it yet. She was cultured at [facility]. She was placed on antibiotics based on her cul tures. She is on the appropriate antibiotics. I think continued monitoring of her bleeding and hydr ation is more important while she gets ready for chemotherapy. Plan of care was discussed with the jose bro and I will contact Dr. Jones and discuss this further and see if we would actually need a Inf ectious Disease consultation or not. The patient can be discharged and follow up as an outpatient. /MODL Voice ID: [id number] Report ID: [id number]
[2024-06-13] MEDS: POTASSIUM 25 MEQ EFFERV TAB PO ONE (14:04)
--- NOTE | 2024-06-13 18:31 | CON ---
History Of Present Illness: The patient is a 69-year-old female I was consulted for evaluation of tu michael-ovarian abscess management with antibiotic. The patient has generalized weakness. Most of the hi story was obtained through her daughter and staff. The patient has significant history of cervical c ancer diagnosed in March 2024 and she has lost 30 pounds since then according to the daughter. Th e patient is yet to start on her chemotherapy and was brought to the oncologist's office pending Port -A-Cath placement. The patient was recently found to have tubo-ovarian abscess formation for which s he had BARON drain which has been taken out by the surgical team. The patient also has some nausea. De nies any diarrhea or constipation. Plus she has vaginal bleed for which the patient has received one PRBC. She was found to have low blood pressure. The patient currently is being treated with flucon azole, Zyvox, and Bactrim. CT scan of her abdomen done on June 11 showed that the patient has 1 3 cm cervical mass extending into the uterus consistent with neoplasm, bladder wall thickening, proba micaela inflammation in addition to the mass, portion of the bladder, so there may be involvement of the bladder with the cervical neoplasm, 2.8 cm right adnexal abscess. Past Medical History: As per HPI. Social History: Nonsmoker, nondrinker. Family History: Noncontributory. Medications: Zyvox, Bactrim, and fluconazole. Allergies: NO KNOWN DRUG ALLERGIES. Review of Systems: A 10-point review was performed. Physical Examination: General: This is a 69-year-old female, lying in bed, not in any acute cardiopulmonary distress. Vital Signs: Temperature 97.9, pulse 97, respirations 17, blood pressure 125/52. HEENT: Unremarkable. Neck: Supple. Lungs: Basal crackles. Heart: S1, S2, regular. Abdomen: Soft. Bowel sounds present. Extremities: No edema. Lab Data: WBC 8.7, down from 11.7, hemoglobin 8.4, platelets are 386, down from 529. Micro data noa ws blood cultures no growth for 24 hours, done on June 11. Assessment And Plan: A 69-year-old female with significant history of cervical cancer and left adnex al tubo-ovarian abscess of 2.8 cm. We will recommend to start the patient on meropenem 500 mg every 8 hours. Discontinue Bactrim. Continue Zyvox pending culture results. Continue current treatment. On discharge, the patient should be sent home on Cipro and Zyvox. Monitor blood cultures if necessa ry. Repeat blood cultures if leukocytosis is found. Monitor platelets and hemoglobin. Anemia of ch ronic disease, hypothyroidism, diabetes mellitus. Continue supportive care and current treatment. W e will follow the patient as needed. Thank you for consult. Total course of antibiotic 2 weeks. NF/MODL Voice ID: [id number] Report ID: [id number]
[2024-06-13] MEDS: ONDANSETRON 4 MG/2 ML VIAL IV ONE (18:53)
[2024-06-14] MEDS: MORPHINE 4 MG/ML SYR IV PRN (05:31)
[2024-06-14] MEDS: ONDANSETRON 4 MG (ODT) TAB PO PRN (05:31)
[2024-06-14 06:25] LABS: Absolute Basophils 0.1 K/uL (0-0.5); Absolute Eosinophils 0.2 K/uL (0-0.5); Absolute Lymphocytes (CBC) 1.4 K/uL (0.7-4.9); Absolute Monocytes 0.6 K/uL (0.1-1.3); Absolute Neutrophil 7.2 K/uL (1.8-8.0); Basophils % 0.9 % (0-1.3); Eosinophils % 2.3 % (0-4.4); Hemoglobin 7.5 g/dL (12.0-15.0); Lymphocytes % 14.5 % (15.3-44.8); MCHC 34.2 g/dL (32.0-36.0); MCV 87.6 fL (80-100); Monocytes % 6.8 % (3.3-12.3); Neutrophils % 75.5 % (41.7-73.7); Nucleated Red Blood Cells % 0.1 % (0-0); Platelets 355 thou/uL (152-406); RBC Red Blood Cell Count 2.51 M/uL (3.86-4.86); Red Cell Distribution Width 16.4 % (12.1-15.2)
[2024-06-14] MEDS: BISMUTH SUBSALICYL 262MG/15ML-240 ML BTL PO PRN (12:16)
[2024-06-14 12:52] LABS: Anion Gap 11.1 mEq/L (5.0-15.0); Potassium 5.1 mEq/L (3.5-5.1)
--- NOTE | 2024-06-14 14:37 | PN ---
Date of Progress Note: 06/14/2024 Subjective: The patient is awake, alert. Feels better. Objective: Vital Signs: Stable. She is afebrile. Respiratory rate was just slightly up to 24. Abdomen: Soft, nondistended, nontender. Positive bowel sounds. Laboratory Data: Reviewed. H and H 7.5 and 22. Assessment: Status post percutaneous drainage of abscess in the pelvis, and she has a small area franchesca t could be residual infected tissue, and also patient has advanced cervical cancer with off and on va ginal bleeding. Recommendations: I reviewed Dr. Velez's note. I think once the patient is medically stabilized, th ere is no further evidence of bleeding, she can be discharged to home on Zyvox and Cipro per Dr. Tereso graves's recommendation. She can follow up with my office in a couple of days and I will schedule her fo r an outpatient Port-A-Cath placement after her infection is under control in the next week or 2. /MODL Voice ID: [id number] Report ID: [id number]
--- NOTE | 2024-06-14 15:19 | P.PN ---
Subjective Date of Service: 06/14/24 Chief Complaint: Poor oral intake Patient is not doing well family members at the bedside not eating and drinking still having vaginal bleeding she of cervical cancer Review of Systems General: Weakness Genitourinary: As per HPI Physical Examination - Vital Signs Temperature: 98.2 F Blood Pressure: 143/84 Pulse: 95 Respirations: 20 Pulse Ox (%): 99 - Physical Exam General: Alert, Oriented x3 Respiratory: Clear to auscultation bilaterally Cardiovascular: No edema, Regular rate/rhythm Gastrointestinal: Normal bowel sounds, Soft and benign, Non-distended Other Physical/Emotional Findings: Exam limited as this is a Tele-Medicine visit Assessment And Plan - Current Problems (Diagnosis) (1) Cervical cancer Current Visit: Yes Status: Acute Plan: Patient has persistent bleeding cervical cancer this been a decrease in her hemoglobin patient is also status post left-sided tubo-ovarian abscess tube was removed patient's blood pressure oxygenation satisfactory continue to monitor hemoglobin has been a slight decline need a blood transfusion also added Cipro continue with Zyvox C Bactrim DC fluconazole due to interaction family members are concerned about her diet recheck hemoglobin tomorrow Qualifiers: Malignant neoplasm of cervix location: unspecified location Qualified Code(s): C53.9 - Malignant neoplasm of cervix uteri, unspecified
[2024-06-14] MEDS: CIPROFLOXACIN HCL 500 MG TAB PO SCH (21:51)
[2024-06-15 06:33] LABS: Absolute Eosinophils 0.3 K/uL (0-0.5); Absolute Lymphocytes (CBC) 1.2 K/uL (0.7-4.9); Absolute Monocytes 0.6 K/uL (0.1-1.3); Absolute Neutrophil 6.6 K/uL (1.8-8.0); Basophils % 0.3 % (0-1.3); Eosinophils % 3.1 % (0-4.4); Hematocrit 21.6 % (36.0-45.0); Hemoglobin 7.3 g/dL (12.0-15.0); Lymphocytes % 14.2 % (15.3-44.8); MCH 30.2 pg (27.0-35.0); MCHC 33.7 g/dL (32.0-36.0); MCV 89.8 fL (80-100); MPV 6.6 fL (7.6-11.3); Monocytes % 6.9 % (3.3-12.3); Neutrophils % 75.5 % (41.7-73.7); Nucleated Red Blood Cells % 0.2 % (0-0); Platelets 376 thou/uL (152-406); Red Cell Distribution Width 16.5 % (12.1-15.2)
[2024-06-15 07:11] LABS: Anion Gap 9.3 mEq/L (5.0-15.0); Potassium 5.3 mEq/L (3.5-5.1)
[2024-06-15] MEDS: ACETAMINOPHEN 500 MG TAB PO ONE (13:58)
[2024-06-15] MEDS: FUROSEMIDE 20 MG/ 2ML VIAL IV ONE (13:58)
[2024-06-15] MEDS: DIPHENHYDRAMINE 50 MG/ML VIAL IV ONE (13:59)
[2024-06-15] MEDS: NA CHLORIDE 0.9% 250 ML IV SCH (15:53)
--- NOTE | 2024-06-15 16:34 | P.PN ---
Date of Service: 06/15/24 Subjective still having vaginal bleeding hx cervical cancer (2-3 pads per day) Daughter at bedside, plan to transfuse 2 units today. Review of Systems Genitourinary: As per HPI Physical Examination - Vital Signs reviewed - Physical Exam General: Alert, Oriented x3, ill-appearing Respiratory: Clear to auscultation bilaterally Cardiovascular: No edema, Regular rate/rhythm Gastrointestinal: Normal bowel sounds, suprapubic tenderness Extremities : No clubbing, No peripheral edema,. Integumentary: No rashes, petechia, suspected lesions. Lymphatics: No axilla or cervical lymphadenopathy. Neurology; drowsy, but easily awakened verbal stimuli, Psych, flat affect, Assessment And Plan - Plan Stage III Locally Invasive Advanced Cervical Cancer Dhiyl-Lhcw-Iuhtnor Abscess Anemia of Chronic of chronic disease Cervical bleeding - She appears to be clinically improving - General Surgery and spoke with Dr. [facility] san appreciated - Infectious Diseases (Dr. Velez) consulted - jaswinder appreciated - Continue linezolid, sulfamethoxazole-trimethoprim, fluconazole - Has outpatient follow-up with [facility] for Oncology evaluation + chemotherapy Type and cross transfuse 2 unit Trend H&H Suspected Hypovolemic Shock due to dehydration versus cervical bleeding Stage I Acute Kidney Injury due to above - resolved - She was initially hypotensive on evaluation, now with normotension following fluid resuscitation Type II Diabetes Mellitus - Continue home insulin regimen Hypothyroidism - Continue home levothyroxine Dyslipidemia - Continue home atorvastatin Depression - Continue home escitalopram Full code Cardiac diet DVT SCD secondary to cervical bleed Disposition: Home with home health, Time spent with patient 35-minute
[2024-06-15] MEDS: ENSURE MAX PROTEIN 330 ML LIQUID PO SCH (20:30)
[2024-06-15 21:47] VITALS: BMI 34.4
[2024-06-15 22:52] LABS: Hematocrit 31.9 % (36.0-45.0); Hemoglobin 10.9 g/dL (12.0-15.0)
[2024-06-15 22:55] VITALS: O2SAT 97
[2024-06-16 05:57] LABS: Absolute Basophils 0.1 K/uL (0-0.5); Absolute Eosinophils 0.3 K/uL (0-0.5); Absolute Lymphocytes (CBC) 1.2 K/uL (0.7-4.9); Absolute Monocytes 0.6 K/uL (0.1-1.3); Absolute Neutrophil 8.4 K/uL (1.8-8.0); Basophils % 1.3 % (0-1.3); Eosinophils % 2.4 % (0-4.4); Hematocrit 31.5 % (36.0-45.0); Hemoglobin 10.7 g/dL (12.0-15.0); Lymphocytes % 11.3 % (15.3-44.8); MCH 30.1 pg (27.0-35.0); MCHC 33.9 g/dL (32.0-36.0); MCV 88.9 fL (80-100); MPV 6.8 fL (7.6-11.3); Monocytes % 5.7 % (3.3-12.3); Neutrophils % 79.3 % (41.7-73.7); Nucleated Red Blood Cells % 0.1 % (0-0); Platelets 341 thou/uL (152-406); RBC Red Blood Cell Count 3.54 M/uL (3.86-4.86); Red Cell Distribution Width 15.9 % (12.1-15.2)
[2024-06-16 06:12] LABS: Anion Gap 11.1 mEq/L (5.0-15.0); Potassium 5.1 mEq/L (3.5-5.1)
[2024-06-16 08:50] VITALS: BP 155/79; TEMP 98.1
--- NOTE | 2024-06-16 09:28 | P.DS ---
Admission Date: 06/11/24 Discharge Date: 06/16/24 Disposition: DC HOME/HOME HEALTH CARE Reason for Admission: Poor oral intake Brief History of Present Illness: 69-year-old female with known past medical history of cervical cancer. Patient was just diagnosed with cervical cancer in March 2024. Her performance status has been progressively declining since. She is yet to be started on any chemotherapy or she was brought in from her oncologist office She is yet to start any chemotherapy, also pending to have a Port-A-Cath placed. Family states that since her diagnosis, she has been too sick to get those done. She has a recent history of tubo-ovarian abscess that required transfer to higher level of care. Patient has been having some nausea, vomiting diarrhea. Additionally, she is also been having vaginal bleeding ongoing since her diagnosis. She went to her oncologist office today and was found to be hypotensive with SBP in the 80s. She was transferred here for higher level of care. During my evaluation, patient appeared pale and frail. She received IV fluid in the ER. The blood pressure is now within normal limits. She meets sepsis criteria based on her initial labs. Physical Exam General: Alert, Oriented x3, ill-appearing Respiratory: Clear to auscultation bilaterally Cardiovascular: No edema, Regular rate/rhythm Gastrointestinal: Normal bowel sounds, suprapubic tenderness Extremities : No clubbing, No peripheral edema,. Integumentary: No rashes, petechia, suspected lesions. Lymphatics: No axilla or cervical lymphadenopathy. Neurology; drowsy, but easily awakened verbal stimuli, Psych, flat affect, Hospital Course: 69-year-old female with known past medical history of cervical cancer. Patient was just diagnosed with cervical cancer in March 2024. Her performance status has been progressively declining since. She is yet to be started on any chemotherapy or she was brought in from her oncologist office She is yet to start any chemotherapy, also pending to have a Port-A-Cath placed. Family states that since her diagnosis, she has been too sick to get those done. She has a recent history of tubo-ovarian abscess that required transfer to higher level of care. Patient has been having some nausea, vomiting diarrhea. Additionally, she is also been having vaginal bleeding ongoing since her diagnosis. She went to her oncologist office today and was found to be hypotensive with SBP in the 80s., patient appeared pale and frail. She received IV fluid in the ER. The blood pressure is now within normal limits. She meets sepsis criteria based on her initial labs. she was an antibiotics from [facility], linezolid, sulfamethoxazole-trimethoprim, fluconazole, (Infectious disease recommended Cipro and Zyvox), hemoblobin improved, plan to follow up with [facility] with port placement, and Dr Hong for Oncology after discharge, HHC, PT/OT, SN, DME BSC, Hosp bed order sent to prior to Discharge. ID recommened n Cipro and Zyvox Blood cultures, no growth Assessment Stage III Locally Invasive Advanced Cervical cancer -follow up with Oncology after discharge, Dr Matias hypovolemic shock 2/2 sepsis with hypotension 2/2 Ipvdb-Pxkh-Gtjszib Abscess / Pelvic abscess (resolved) Discharge home on Po antibiotics. severe Anemia of Chronic 2/2 abnormal uterine bleeding-improved, she recieved 3 units of packed red blood cell Anorexia, Ensure, Glucenera Daily with meals stage I Acute Kidney Injury due to hypovomemic shock-improved Type II Diabetes Mellitus- Continue home insulin regimen-stable Hypothyroidism- Continue home levothyroxine Dyslipidemia- Continue home atorvastatin Depression- Continue home escitalopra HH 8.2->8.4->7.5->7.3->10.9 (after 3 units) CT Abdomen IMPRESSION: 13 cm cervical mass extending into the uterus consistent with neoplasm.Bladder wall thickening probably inflammation. In addition, the mass abuts a portion of the bladder so there may be involvement of the bladder by the cervical neoplasm.2.8 cm right adnexal abscess Continue home medicines as previously prescribed GOAL: Clear understanding of disease process INSTRUCTIONS: Physician Discharge Instructions: -Follow-up with Dr. Hong/oncology after discharge -Follow-up with PCP in 1 to 2 weeks -Please call Dr. Veras at [phone] if any questions regarding hospital stay -Please call nursing station at [phone] if any nursing or medication questions -Return to the emergency room if symptoms worsen Diet: ADA, low sodium Activity: Fall precautions Vital Signs/Physical Exam: Temp Pulse Resp BP Pulse Ox 98.1 F 98 H 22 H 155/79 H 97 06/16/24 08:00 06/16/24 08:00 06/16/24 08:00 06/16/24 08:00 06/16/24 08:00 Other Physical/Emotional Findings: Exam limited as this is a Tele-Medicine visit Laboratory Data at Discharge: WBC Cancelled 06/16/24 06:00 Hgb Cancelled 06/16/24 06:00 Hct Cancelled 06/16/24 06:00 Plt Count Cancelled 06/16/24 06:00 PT 14.2 SECONDS (9.4-12.5) H 06/11/24 15:08 INR 1.36 06/11/24 15:08 APTT 24.1 SECONDS (24.3-36.9) L 06/11/24 15:08 Sodium 133 mEq/L (136-145) L 06/16/24 05:12 Potassium 5.1 mEq/L (3.5-5.1) 06/16/24 05:12 BUN 5 mg/dL (7-18) L 06/16/24 05:12 Creatinine 0.89 mg/dL (0.55-1.02) 06/16/24 05:12 Glucose 110 mg/dL (74-106) H 06/16/24 05:12 Phosphorus 3.1 mg/dL (2.5-4.9) 06/12/24 03:45 Magnesium 1.6 mg/dL (1.6-2.4) 06/13/24 07:47 Total Bilirubin 0.4 mg/dL (0.2-1.0) 06/11/24 15:08 AST 28 U/L (15-37) 06/11/24 15:08 ALT < 14 U/L (13-56) 06/11/24 15:08 Alkaline Phosphatase 99 U/L (45-117) 06/11/24 15:08 Triglycerides 135 mg/dL (<150) 06/12/24 03:45 Cholesterol 103 mg/dL (<200) 06/12/24 03:45 HDL Cholesterol 30 mg/dL (40-60) L 06/12/24 03:45 Cholesterol/HDL Ratio 3.43 06/12/24 03:45 Home Medications: Atorvastatin Calcium [Lipitor*] 10 mg PO BEDTIME 06/11/24 Bismuth Subsalicylate [Pepto-Bismol] 30 osyr PO DAILY PRN 06/11/24 Escitalopram Oxalate [Lexapro] 10 mg PO DAILY 06/11/24 Ferrous Sulfate [Iron] 325 mg PO DAILY 06/11/24 Fluconazole [Diflucan] 400 mg PO DAILY 06/11/24 Gabapentin 300 mg PO DAILY AFTER SUPPER 06/11/24 Hydromorphone [Dilaudid*] 1 mg PO Q4HR PRN 06/11/24 Hyoscyamine Sulfate [Oscimin Sl] 0.125 mg SL QIDP PRN 06/11/24 Levothyroxine Sodium 25 mcg PO DAILY 06/11/24 Linezolid [Zyvox*] 600 mg PO BID 06/11/24 Mecobalamin [B12 Active] 1,000 mg PO DAILY 06/11/24 Metformin HCl [Metformin ER Gastric] 1,000 mg PO BID 06/11/24 Ondansetron [Zofran (Odt)*] 8 mg PO Q8HR PRN 06/11/24 Smz./Tmp. [Bactrim Ds 800 MG/160 MG*] 2 mg PO BID 06/11/24 hydrOXYzine HCL [Atarax*] 25 mg PO DAILY PRN 06/11/24 Acidophilus/Bifido Longum [Lactobacillus Capsule] 16 mg PO BID 10 Days #20 tab 06/16/24 Ciprofloxacin HCl [Cipro 500 MG Tablet] 500 mg PO BID 10 Days #20 tab 06/16/24 Ensure Max Protein 330 ml PO BID can 06/16/24 Linezolid [Zyvox] 600 mg PO BID 10 Days #20 tab 06/16/24 Ondansetron [Zofran (Odt)*] 8 mg PO Q8HP PRN tab 06/16/24 New Medications: Ciprofloxacin HCl [Cipro 500 MG Tablet] 500 mg PO BID 10 Days #20 tab Acidophilus/Bifido Longum [Lactobacillus Capsule] 16 mg PO BID 10 Days #20 tab Linezolid [Zyvox] 600 mg PO BID 10 Days #20 tab Physician Discharge Instructions: 69-year-old female with known past medical history of cervical cancer. Patient was just diagnosed with cervical cancer in March 2024. Her performance status has been progressively declining since. She is yet to be started on any chemotherapy or she was brought in from her oncologist office She is yet to start any chemotherapy, also pending to have a Port-A-Cath placed. Family states that since her diagnosis, she has been too sick to get those done. She has a recent history of tubo-ovarian abscess that required transfer to higher level of care. Patient has been having some nausea, vomiting diarrhea. Additionally, she is also been having vaginal bleeding ongoing since her diagnosis. She went to her oncologist office today and was found to be hypotensive with SBP in the 80s., patient appeared pale and frail. She received IV fluid in the ER. The blood pressure is now within normal limits. She meets sepsis criteria based on her initial labs. she was an antibiotics from [facility], linezolid, sulfamethoxazole-trimethoprim, fluconazole, (Infectious disease recommended Cipro and Zyvox), hemoblobin improved, plan to follow up with [facility] with port placement, and Dr Hong for Oncology after discharge, HHC, PT/OT, SN, DME BSC, Hosp bed order sent to prior to Discharge. ID recommened n Cipro and Zyvox Blood cultures, no growth Assessment Stage III Locally Invasive Advanced Cervical cancer -follow up with Oncology after discharge, Dr Matias hypovolemic shock 2/2 sepsis with hypotension 2/2 Fpazn-Zwry-Pmmwths Abscess / Pelvic abscess (resolved) Discharge home on Po antibiotics. severe Anemia of Chronic 2/2 abnormal uterine bleeding-improved, she recieved 3 units of packed red blood cell Anorexia, Ensure, Glucenera Daily with meals stage I Acute Kidney Injury due to hypovomemic shock-improved Type II Diabetes Mellitus- Continue home insulin regimen-stable Hypothyroidism- Continue home levothyroxine Dyslipidemia- Continue home atorvastatin Depression- Continue home escitalopra HH 8.2->8.4->7.5->7.3->10.9 (after 3 units) CT Abdomen IMPRESSION: 13 cm cervical mass extending into the uterus consistent with neoplasm.Bladder wall thickening probably inflammation. In addition, the mass abuts a portion of the bladder so there may be involvement of the bladder by the cervical neoplasm.2.8 cm right adnexal abscess Continue home medicines as previously prescribed GOAL: Clear understanding of disease process INSTRUCTIONS: Physician Discharge Instructions: -Follow-up with Dr. Hong/oncology after discharge -Follow-up with PCP in 1 to 2 weeks -Please call Dr. Veras at [phone] if any questions regarding hospital stay -Please call nursing station at [phone] if any nursing or medication questions -Return to the emergency room if symptoms worsen Diet: ADA, low sodium Activity: Fall precautions Diet: ADA Activity: Fall precautions Followup: Colten Ramos DO [Primary Care Provider] - 1-2 Weeks Lino Matias MD [ACTIVE - CAN ADMIT] - 1-2 Weeks Mike Huber MD [ACTIVE - CAN ADMIT] - 1-2 Weeks Time spent managing pt's care (in minutes): 45
--- NOTE | 2024-06-16 11:30 | P.PN ---
Subjective Date of Service: 06/16/24 Chief Complaint: Poor oral intake Subjective: No new changes Temp Pulse Resp BP Pulse Ox 98.1 F 98 H 22 H 155/79 H 97 06/16/24 08:00 06/16/24 08:00 06/16/24 08:00 06/16/24 08:00 06/16/24 08:00 Lungs basal crackles Heart S1-S2 regular Abdomen soft, bowel sound present Extremity: No edema Laboratory Last Values WBC 11.70 thou/uL (4.3-10.9) H 06/11/24 15:08 RBC 2.74 M/uL (3.86-4.86) L 06/11/24 15:08 Hgb 8.2 g/dL (12.0-15.0) L 06/11/24 15:08 Hct 23.7 % (36.0-45.0) L 06/11/24 15:08 MCV 86.7 fL (80-100) 06/11/24 15:08 MCH 30.1 pg (27.0-35.0) 06/11/24 15:08 MCHC 34.7 g/dL (32.0-36.0) 06/11/24 15:08 RDW 17.6 % (12.1-15.2) H 06/11/24 15:08 Plt Count 529 thou/uL (152-406) H 06/11/24 15:08 MPV 7.2 fL (7.6-11.3) L 06/11/24 15:08 Neutrophils % 82.4 % (41.7-73.7) H 06/11/24 15:08 Lymphocytes % 12.5 % (15.3-44.8) L 06/11/24 15:08 Monocytes % 3.6 % (3.3-12.3) 06/11/24 15:08 Eosinophils % 0.8 % (0-4.4) 06/11/24 15:08 Basophils % 0.7 % (0-1.3) 06/11/24 15:08 Absolute Neutrophils 9.6 K/uL (1.8-8.0) H 06/11/24 15:08 Absolute Lymphocytes 1.5 K/uL (0.7-4.9) 06/11/24 15:08 Absolute Monocytes 0.4 K/uL (0.1-1.3) 06/11/24 15:08 Absolute Eosinophils 0.1 K/uL (0-0.5) 06/11/24 15:08 Absolute Basophils 0.1 K/uL (0-0.5) 06/11/24 15:08 PT 14.2 SECONDS (9.4-12.5) H 06/11/24 15:08 INR 1.36 06/11/24 15:08 APTT 24.1 SECONDS (24.3-36.9) L 06/11/24 15:08 Sodium 134 mEq/L (136-145) L 06/11/24 15:08 Potassium 3.6 mEq/L (3.5-5.1) 06/11/24 15:08 Chloride 101 mEq/L (98-107) 06/11/24 15:08 Carbon Dioxide 20 mEq/L (21-32) L 06/11/24 15:08 Anion Gap 16.6 mEq/L (5.0-15.0) H 06/11/24 15:08 BUN 6 mg/dL (7-18) L 06/11/24 15:08 Creatinine 1.22 mg/dL (0.55-1.02) H 06/11/24 15:08 Est GFR (CKD-EPI) 47 ml/min (=/>90) L 06/11/24 15:08 Glucose 110 mg/dL (74-106) H 06/11/24 15:08 Lactic Acid 1.4 mmol/L (0.4-2.0) 06/11/24 18:23 Lactic Acid F/U @ 2Hr Reorder 06/11/24 15:57 Calcium 9.1 mg/dL (8.5-10.1) 06/11/24 15:08 Total Bilirubin 0.4 mg/dL (0.2-1.0) 06/11/24 15:08 AST 28 U/L (15-37) 06/11/24 15:08 ALT < 14 U/L (13-56) 06/11/24 15:08 Alkaline Phosphatase 99 U/L (45-117) 06/11/24 15:08 Troponin I High Sens 18.8 pg/mL (<58.9) 06/11/24 15:08 Serum Total Protein 6.8 g/dL (6.4-8.2) 06/11/24 15:08 Albumin 1.8 g/dL (3.4-5.0) L 06/11/24 15:08 Globulin 5.0 g/dL (2.3-3.5) H 06/11/24 15:08 Albumin/Globulin Ratio 0.4 (1.1-1.8) L 06/11/24 15:08 ABO/Rh O POSITIVE 06/11/24 15:08 Solid Phase Ab Screen Negative 06/11/24 15:08 Crossmatch See Detail 06/11/24 15:08 Physical Examination - Vital Signs Temperature: 98.1 F Blood Pressure: 155/79 Pulse: 98 Respirations: 22 Pulse Ox (%): 97 - Physical Exam Other Physical/Emotional Findings: Exam limited as this is a Tele-Medicine visit
--- NOTE | 2024-06-16 12:33 | EKG ---
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
--- NOTE | 2024-06-16 14:18 | PN ---
Subjective: The patient lying in bed. No new acute event. Feels much better today. Denies any [address] pain, abdominal pain, constipation, or diarrhea. Objective: Vital Signs: Temperature 98, pulse 78, respirations 16, blood pressure 119/64. Lungs: Basal crackles. Heart: S1, S2. Regular. Abdomen: Soft, nontender. Bowel sounds present. Extremities: Trace edema. Laboratory Data: Shows WBC 8.7, hemoglobin 7.3, platelets 376. Chemistry shows BUN of 3, creatinine 0.7, albumin level is 1.8. Assessment And Plan: Left-sided ovarian abscess with cervical cancer and metastasis. We will contin ue antibiotic for at least 3 weeks. Can be switched to oral on discharge. The patient is currently on oral and can be discharged on these antibiotics. Anemia of chronic disease. Moderate protein tanner orie malnutrition. We will follow the patient as needed. NF/MODL Voice ID: [id number] Report ID: [id number]
--- NOTE | 2024-06-16 14:18 | PN ---
Date of Progress Note: 06/15/2024 Subjective: The patient is resting comfortably. Her vital signs are stable. She is afebrile. She is still having bleeding from her cancer through the vagina off and on. Objective: Abdomen: Benign. Laboratory Data: Significant for hemoglobin of 7.3 and 21.6. She is getting blood. Infectious Dise ase consult appreciated. Assessment: A 69-year-old female with advanced cervical cancer, anemia secondary to that, and histor y of a pelvic abscess, status post drain removal. Recommendation: Antibiotics per Infectious Disease. H and H monitored and blood replaced as needed. I discussed the case with Dr. Matias. When she is medically stable, we can schedule a Port-A-Cath in a week or 2. Allow for treatment of her infection prior to placing the Port-A-Cath, which can be done as an outpatient. So once the patient is medically stabilized, patient can be discharged to [facility] from our standpoint. RADHA/JOHN Voice ID: [id number] Report ID: [id number]
--- NOTE | 2024-06-16 15:49 | PN ---
Subjective: The patient is sitting in a chair, being discharged today. No new acute event. Chart diana ga. Objective: Vital Signs: Temperature 98, pulse 90, respirations 20, blood pressure 155/79. Lungs: Basal crackles. Heart: S1, S2. Regular. Abdomen: Soft. Bowel sounds present. Extremities: No edema. Laboratory Data: WBC 10.5, hemoglobin 10.7, platelets are 341. Blood cultures are being negative. Currently, being discharged on Cipro and Zyvox for abscess formation on the right tubo-ovarian region , history of stage 3 cervical cancer, type 2 diabetes mellitus, anemia of chronic disease. Continue supportive care and antibiotic for total of 2 weeks. NF/MODL Voice ID: [id number] Report ID: [id number]
== END 2024-06-16 10:47 | disposition home health service (06) | DRG 871 ==
LOC: ER 14:32 → 2ND 19:46
PROVIDERS: ADMIT Internal Medicine; ATTEND Hospitalist
PROC: 30233N1 Transfusion of Nonautologous Red Blood Cells into Peripheral Vein, Percutaneous Approach (ICD-10-PCS; principal; 2024-06-11)
DX: A41.9 Sepsis, unspecified organism (principal); R57.1 Hypovolemic shock; R65.21 Severe sepsis with septic shock; E87.20 Acidosis, unspecified; D62 Acute posthemorrhagic anemia; N17.9 Acute kidney failure, unspecified; E44.0 Moderate protein-calorie malnutrition; C79.9 Secondary malignant neoplasm of unspecified site; I10 Essential (primary) hypertension; E11.9 Type 2 diabetes mellitus without complications; E78.00 Pure hypercholesterolemia, unspecified; N73.9 Female pelvic inflammatory disease, unspecified; C53.9 Malignant neoplasm of cervix uteri, unspecified; E86.0 Dehydration; N70.93 Salpingitis and oophoritis, unspecified; F32.A Depression, unspecified; N93.9 Abnormal uterine and vaginal bleeding, unspecified; D63.8 Anemia in other chronic diseases classified elsewhere; Z68.34 Body mass index [BMI] 34.0-34.9, adult
CPT/HCPCS: 36415; 36430; 71045; 74177; 80048; 80053; 80061; 82947; 83605; 83735; 84100; 84484; 85014; 85018; 85025; 85610; 85730; 86850; 86900; 86901; 86920; 87040; 93005; 96365; 96375; 97110; 97161; 97165; 97530; 99285; J0692; J1171; J1200; J1940; J2405; J2543; J3475; J7030; J7040; J7050; P9016; Q0162; Q9967

== ENCOUNTER 2024-06-17 13:16 | Inpatient (IN) | payer OTHER ==
--- OUTSIDE RECORDS SUMMARY | 2024-06-17 13:20 | XMS REPORT | Clinical Summary ---
Author Name Unknown Organization 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 28 tablet 06/08/2024 2:19 PM TELECOM SALES CONSULTANT 5 06/22/19 25 Active linezolid (ZYVOX) 600 mg tabletIndicatio ns:Pelvic abscess Take 1 tablet (600 mg) by mouth every 12 (twelve) hours for 14 days. For infection. 28 tablet 06/08/2024 2:19 PM TELECOM SALES CONSULTANT 5 06/22/19 25 Active sulfamethoxazol e-trimethoprim (BACTRIM DS) 800 mg-160 mg per tabletIndicatio ns:Pelvic abscess Take 2 tablets by mouth every 12 (twelve) hours for 14 days. For infection. 56 tablet 06/08/2024 2:19 PM TELECOM SALES CONSULTANT 5 06/22/19 25 Active acetaminophen (TYLENOL) 325 [...] severe pain. 60 tablet 06/08/2024 2:19 PM TELECOM SALES CONSULTANT 5 Active DULoxetine (CYMBALTA) 30 mg capsule [...] Department Care Team Description 06/03/2024 8:10 PM TELECOM SALES CONSULTANT Ancillary Procedure [facility] [address] [place] [address] Sarah Campo MD 06/03/2024 8:05 PM TELECOM SALES CONSULTANT Ancillary Procedure [facility] [address] [place] [address] Sarah Campo MD 06/03/2024 8:00 PM TELECOM SALES CONSULTANT Ancillary Procedure [facility] [address] [place] [address] Sarah Campo MD 06/03/2024 1:46 PM TELECOM SALES CONSULTANT - 06/08/2024 5:02 PM TELECOM SALES CONSULTANT Hospital Encounter MAIN [address] [place] [address] Sarah Campo MD Bevers, Michael W, MD [...] Home-Health or Physical Therapy 06/03/2024 Travel after 06/18/2023 Surgical History Surgery Date Site/Laterality Comments HERNIA [...] on file Legal Sex Female 10:31 AM TELECOM SALES CONSULTANT Gender Identity Not on file Sexual Orientation [...] Comments Blood Pressure 112/71 06/08/2024 11:31 AM TELECOM SALES CONSULTANT Pulse 71 06/08/2024 11:31 AM TELECOM SALES CONSULTANT Temperature 37 C (98.6 F) 06/08/2024 11: 31 AM TELECOM SALES CONSULTANT Respiratory Rate 16 06/08/2024 11:3 1 AM TELECOM SALES CONSULTANT Oxygen Saturation 96% 06/08/2024 11: 31 AM TELECOM SALES CONSULTANT Inhaled Oxygen Concentration - - Weight 94.8 kg (208 lb 15.9 oz) 06/04/2024 5:47 AM TELECOM SALES CONSULTANT Height 157.5 cm (5' 2") 06/04/2024 5:47 AM TELECOM SALES CONSULTANT Body Mass Index 38.23 06/04/2024 5:47 AM TELECOM SALES CONSULTANT Plan of Treatment Health Maintenance Due Date Last Done Comments COVID-19 Vaccine (2023-2 5 season) 2024 08/07/2020, 07/10/2020 Influenza Vaccine (#1) 2024 , 03/11/2020, 01/21/2019, Additional history exists Pneumococcal Vaccine: 50+ Years Completed 03/11/2020, 03/11/2020, 01/21/2019, Additional history exists Procedures Procedure Name Priority Date/Time Associated Diagnosis Comments POC GLUCOSE SCREEN Routine 06/08/2024 2: 20 PM TELECOM SALES CONSULTANT POC GLUCOSE SCREEN Routine 06/08/2024 1: 34 PM TELECOM SALES CONSULTANT POC GLUCOSE SCREEN Routine 06/08/2024 9: 29 AM TELECOM SALES CONSULTANT POC GLUCOSE SCREEN Routine 06/08/2024 8: 06 AM TELECOM SALES CONSULTANT .CBC Routine 06/08/2024 12:58 AM TELECOM SALES CONSULTANT GLUCOSE, RANDOM Routine 06/08/2024 12:58 AM TELECOM SALES CONSULTANT CREATININE Routine 06/08/2024 12:58 AM TELECOM SALES CONSULTANT BLOOD UREA NITROGEN Routine 06/08/2024 1 2:58 AM TELECOM SALES CONSULTANT MAGNESIUM LEVEL Routine 06/08/2024 12:58 AM TELECOM SALES CONSULTANT POTASSIUM LEVEL Routine 06/08/2024 12:58 AM TELECOM SALES CONSULTANT CHLORIDE LEVEL Routine 06/08/2024 12:58 AM TELECOM SALES CONSULTANT CARBON DIOXIDE LEVEL Routine 06/08/2024 12:58 AM TELECOM SALES CONSULTANT SODIUM LEVEL Routine 06/08/2024 12:58 AM TELECOM SALES CONSULTANT COMPLETE BLOOD COUNT W/ DIFFERENTIAL Routine 06/08/2024 12:58 AM TELECOM SALES CONSULTANT EKG, 12-LEAD (PORTABLE) STAT 06/08/2024 POC GLUCOSE SCREEN Routine 06/07/2024 10 :28 PM TELECOM SALES CONSULTANT POC GLUCOSE SCREEN Routine 06/07/2024 7: 34 PM TELECOM SALES CONSULTANT POC GLUCOSE SCREEN Routine 06/07/2024 2: 01 PM TELECOM SALES CONSULTANT POC GLUCOSE SCREEN Routine 06/07/2024 10 :11 AM TELECOM SALES CONSULTANT .CBC Routine 06/07/2024 12:42 AM TELECOM SALES CONSULTANT GLUCOSE, RANDOM Routine 06/07/2024 12:42 AM TELECOM SALES CONSULTANT CREATININE Routine 06/07/2024 12:42 AM TELECOM SALES CONSULTANT BLOOD UREA NITROGEN Routine 06/07/2024 1 2:42 AM TELECOM SALES CONSULTANT MAGNESIUM LEVEL Routine 06/07/2024 12:42 AM TELECOM SALES CONSULTANT POTASSIUM LEVEL Routine 06/07/2024 12:42 AM TELECOM SALES CONSULTANT CHLORIDE LEVEL Routine 06/07/2024 12:42 AM TELECOM SALES CONSULTANT CARBON DIOXIDE LEVEL Routine 06/07/2024 12:42 AM TELECOM SALES CONSULTANT SODIUM LEVEL Routine 06/07/2024 12:42 AM TELECOM SALES CONSULTANT COMPLETE BLOOD COUNT W/ DIFFERENTIAL Routine 06/07/2024 12:42 AM TELECOM SALES CONSULTANT POC GLUCOSE SCREEN Routine 2024 9: 28 PM TELECOM SALES CONSULTANT POC GLUCOSE SCREEN Routine 2024 1: 14 PM TELECOM SALES CONSULTANT POC GLUCOSE SCREEN Routine 2024 8: 13 AM TELECOM SALES CONSULTANT .CBC Routine 2024 12:30 AM TELECOM SALES CONSULTANT GLUCOSE, RANDOM Routine 2024 12:30 AM TELECOM SALES CONSULTANT CREATININE Routine 2024 12:30 AM TELECOM SALES CONSULTANT BLOOD UREA NITROGEN Routine 2024 1 2:30 AM TELECOM SALES CONSULTANT MAGNESIUM LEVEL Routine 2024 12:30 AM TELECOM SALES CONSULTANT POTASSIUM LEVEL Routine 2024 12:30 AM TELECOM SALES CONSULTANT CHLORIDE LEVEL Routine 2024 12:30 AM TELECOM SALES CONSULTANT CARBON DIOXIDE LEVEL Routine 2024 12:30 AM TELECOM SALES CONSULTANT SODIUM LEVEL Routine 2024 12:30 AM TELECOM SALES CONSULTANT COMPLETE BLOOD COUNT W/ DIFFERENTIAL Routine 2024 12:30 AM TELECOM SALES CONSULTANT POC GLUCOSE SCREEN Routine 06/05/2024 11 :15 PM TELECOM SALES CONSULTANT POC GLUCOSE SCREEN Routine 06/05/2024 6: 31 PM TELECOM SALES CONSULTANT POC GLUCOSE SCREEN Routine 06/05/2024 12 :51 PM TELECOM SALES CONSULTANT POC GLUCOSE SCREEN Routine 06/05/2024 7: 57 AM TELECOM SALES CONSULTANT .CBC Routine 06/05/2024 4:48 AM TELECOM SALES CONSULTANT VANCOMYCIN TROUGH Timed Study 06/05/2024 4:4 8 AM TELECOM SALES CONSULTANT GLUCOSE, RANDOM Routine 06/05/2024 4:48 AM TELECOM SALES CONSULTANT CREATININE Routine 06/05/2024 4:48 AM TELECOM SALES CONSULTANT BLOOD UREA NITROGEN Routine 06/05/2024 4 :48 AM TELECOM SALES CONSULTANT MAGNESIUM LEVEL Routine 06/05/2024 4:48 AM TELECOM SALES CONSULTANT POTASSIUM LEVEL Routine 06/05/2024 4:48 AM TELECOM SALES CONSULTANT CHLORIDE LEVEL Routine 06/05/2024 4:48 AM TELECOM SALES CONSULTANT CARBON DIOXIDE LEVEL Routine 06/05/2024 4:48 AM TELECOM SALES CONSULTANT SODIUM LEVEL Routine 06/05/2024 4:48 AM TELECOM SALES CONSULTANT COMPLETE BLOOD COUNT W/ DIFFERENTIAL Routine 06/05/2024 4:48 AM TELECOM SALES CONSULTANT POC GLUCOSE SCREEN Routine 06/04/2024 10 :32 PM TELECOM SALES CONSULTANT POC GLUCOSE SCREEN Routine 06/04/2024 7: 51 PM TELECOM SALES CONSULTANT AFB SMEAR Routine 06/04/2024 4:48 PM TELECOM SALES CONSULTANT Cancer Sepsis Cervix neoplasm Type 2 diabetes mellitus, not otherwise specified Renal insufficiency Leukocytosis Metabolic acidosis Hypoalbuminemia Pelvic abscess Encounter for adjustment and management of vascular access device AFB CULTURE W/ SMEAR - PERFORMABLE Routine 06/04/2024 4:48 PM TELECOM SALES CONSULTANT Cancer Sepsis Cervix neoplasm Type 2 diabetes mellitus, not otherwise specified Renal insufficiency Leukocytosis Metabolic acidosis Hypoalbuminemia Pelvic abscess Encounter for adjustment and management of vascular access device FUNGAL CULTURE W/ SMEAR Routine 06/04/2024 4:48 PM TELECOM SALES CONSULTANT Cancer Sepsis Cervix neoplasm Type 2 diabetes mellitus, not otherwise specified Renal insufficiency Leukocytosis Metabolic acidosis Hypoalbuminemia Pelvic abscess Encounter for adjustment and management of vascular access device BODY FLUID CULTURE W/ GRAM STAIN Routine 06/04/2024 4:48 PM TELECOM SALES CONSULTANT Cancer Sepsis Cervix neoplasm Type 2 diabetes mellitus, not otherwise specified Renal insufficiency Leukocytosis Metabolic acidosis Hypoalbuminemia Pelvic abscess Encounter for adjustment and management of vascular access device ANAEROBIC CULTURE Routine 06/04/2024 4:4 8 PM TELECOM SALES CONSULTANT Cancer Sepsis Cervix neoplasm Type 2 diabetes mellitus, not otherwise specified Renal insufficiency Leukocytosis Metabolic acidosis Hypoalbuminemia Pelvic abscess Encounter for adjustment and management of vascular access device IR CT GUIDED DEEP DRAIN PLACEMENT (NON-ORGAN) 75 Routine 06/04/2024 4:11 PM TELECOM SALES CONSULTANT Pelvic abscess POC GLUCOSE SCREEN Routine 06/04/2024 2: 55 PM TELECOM SALES CONSULTANT POC GLUCOSE SCREEN Routine 06/04/2024 12 :38 PM TELECOM SALES CONSULTANT C. AURIS SCREENING PCR Routine 12:10 PM TELECOM SALES CONSULTANT PICC/NON-TUNNELED CVAD REMOVAL Routine 06/04/2024 12:02 PM TELECOM SALES CONSULTANT Encounter for adjustment and management of vascular access device POC GLUCOSE SCREEN Routine 06/04/2024 8: 38 AM TELECOM SALES CONSULTANT HEMOGLOBIN A1C Add-On 06/04/2024 4:19 AM TELECOM SALES CONSULTANT .CBC Routine 06/04/2024 4:19 AM TELECOM SALES CONSULTANT BLOOD GAS VENOUS Routine 06/04/2024 4:19 AM TELECOM SALES CONSULTANT GLUCOSE, RANDOM Routine 06/04/2024 4:19 AM TELECOM SALES CONSULTANT CREATININE Routine 06/04/2024 4:19 AM TELECOM SALES CONSULTANT BLOOD UREA NITROGEN Routine 06/04/2024 4 :19 AM TELECOM SALES CONSULTANT MAGNESIUM LEVEL Routine 06/04/2024 4:19 AM TELECOM SALES CONSULTANT POTASSIUM LEVEL Routine 06/04/2024 4:19 AM TELECOM SALES CONSULTANT CHLORIDE LEVEL Routine 06/04/2024 4:19 AM TELECOM SALES CONSULTANT CARBON DIOXIDE LEVEL Routine 06/04/2024 4:19 AM TELECOM SALES CONSULTANT SODIUM LEVEL Routine 06/04/2024 4:19 AM TELECOM SALES CONSULTANT COMPLETE BLOOD COUNT W/ DIFFERENTIAL Routine 06/04/2024 4:19 AM TELECOM SALES CONSULTANT POC GLUCOSE SCREEN Routine 06/04/2024 12 :01 AM TELECOM SALES CONSULTANT URINALYSIS MICROSCOPIC EXAM Routine 06/03/2024 9:41 PM TELECOM SALES CONSULTANT URINALYSIS WITH MICROSCOPIC IF INDICATED Routine 06/03/2024 9:41 PM TELECOM SALES CONSULTANT URINALYSIS WITH MICROSCOPIC IF INDICATED Routine 06/03/2024 9:41 PM TELECOM SALES CONSULTANT URINE CULTURE Routine 06/03/2024 9:41 PM TELECOM SALES CONSULTANT POC GLUCOSE SCREEN Routine 06/03/2024 8: 08 PM TELECOM SALES CONSULTANT BLOOD CULTURE Routine 06/03/2024 3:49 PM TELECOM SALES CONSULTANT BLOOD CULTURE Routine 06/03/2024 3:49 PM TELECOM SALES CONSULTANT VERIFY CATHETER TIP PLACEMENT Routine 06/03/2024 2:38 PM TELECOM SALES CONSULTANT Cancer HC POC BLOOD UREA NITRO-BUN STAT 06/03/2024 2:32 PM TELECOM SALES CONSULTANT POC VENOUS BLOOD GAS + LACTATE Routine 06/03/2024 2:28 PM TELECOM SALES CONSULTANT CONFIRM ABORH TYPE Routine 06/03/2024 2: 27 PM TELECOM SALES CONSULTANT .CBC Routine 06/03/2024 2:12 PM TELECOM SALES CONSULTANT C REACTIVE PROTEIN Routine 06/03/2024 2: 12 PM TELECOM SALES CONSULTANT LACTATE DEHYDROGENASE Routine 06/03/2024 2:12 PM TELECOM SALES CONSULTANT FRACTIONATED BILIRUBIN Routine 2:12 PM TELECOM SALES CONSULTANT HC PROCALCITONIN (PCT) Routine 2:12 PM TELECOM SALES CONSULTANT FIBRINOGEN Routine 06/03/2024 2:12 PM TELECOM SALES CONSULTANT D DIMER Routine 06/03/2024 2:12 PM TELECOM SALES CONSULTANT APTT Routine 06/03/2024 2:12 PM TELECOM SALES CONSULTANT PROTHROMBIN TIME Routine 06/03/2024 2:12 PM TELECOM SALES CONSULTANT PHOSPHORUS LEVEL Routine 06/03/2024 2:12 PM TELECOM SALES CONSULTANT MAGNESIUM LEVEL Routine 06/03/2024 2:12 PM TELECOM SALES CONSULTANT COMPREHENSIVE METABOLIC PANEL Routine 06/03/2024 2:12 PM TELECOM SALES CONSULTANT TYPE AND SCREEN Routine 06/03/2024 2:12 PM TELECOM SALES CONSULTANT COMPLETE BLOOD COUNT W/ DIFFERENTIAL Routine 06/03/2024 2:12 PM TELECOM SALES CONSULTANT RESPIRATORY MULTIPLEX PCR PANEL, NASOPHARYNGEAL SWAB Routine 06/03/2024 2:07 PM TELECOM SALES CONSULTANT EKG, 12-LEAD (PORTABLE) STAT 06/03/[address] BRAIN Routine 06/02/2024 2:47 PM TELECOM SALES CONSULTANT Cancer OSI CHEST Routine 06/02/2024 2:47 PM TELECOM SALES CONSULTANT Cancer OSI CT ABDOMEN AND PELVIS Routine 06/02/2024 2:47 PM TELECOM SALES CONSULTANT after 06/18/2023 Results * (ABNORMAL) POC Glucose Screen - Fingerstick (06/08/2024 2:20 PM TELECOM SALES CONSULTANT) Only the most recent of22 resultswithin the time period is included. Glucose Screen 100(H) 70 - 99 mg/dL 06/08/2024 2:22 PM TELECOM SALES CONSULTANT [facility] POC Sample Type Capillary 06/08/2024 2:22 PM TELECOM SALES CONSULTANT [facility] Blood 06/08/2024 2:20 PM TELECOM SALES CONSULTANT 06/08/2024 2:22 PM TELECOM SALES CONSULTANT Narrative [facility] - 06/08/2024 2:22 PM TELECOM SALES CONSULTANT Capillary blood samples, e.g. obtained by fingerstick, [...] - DEVICE Final Result Performing Organization Address [facility] Co de Phone Number [facility] Unless otherwise noted, all lab tests performed by: Division of Pathology and Laboratory Medicine [address] [place] [address] * Glucose, Random (06/08/2024 12:58 AM TELECOM SALES CONSULTANT) Only the most recent of5 resultswithin the time period is included. Glucose Random 71 70 - 199 mg/dL 06/08/2024 1:53 AM TELECOM SALES CONSULTANT [facility] Blood Peripheral blood specimen / Unknown Venipuncture / Unknown 06/08/2024 12:58 AM TELECOM SALES CONSULTANT 06/08/2024 1:26 AM TELECOM SALES CONSULTANT Narrative [facility] - 06/08/2024 1:53 AM TELECOM SALES CONSULTANT Effective 12/07/15, the glucose reference intervals have been updated based on [place] [employer] guidelines (Standards of Medical Care [...] ORDERABLES Final R esult Performing Organization Address City/[facility]/ZIP Co de Phone Number [facility] Unless otherwise noted, all lab tests performed by: Division of Pathology and Laboratory Medicine [facility] [place] [address] * (ABNORMAL) .CBC (06/08/2024 12:58 AM [facility]) Only the most recent of6 resultswithin the time period is included. White Blood Cell 12.7(H) 4.1 - 10.5 K/uL 06/08/2024 1:31 AM [facility] Red Blood Cell 2.51(L) 3.99 - 5.46 M/uL 06/08/2024 1:31 AM [facility] Hemoglobin 7.3(L) 12.2 - 15.3 g/dL 06/08/2024 1:31 AM [facility] Hematocrit 22.0(L) 36.4 - 46.8 % 06/08/2024 1:31 AM [facility] Mean Cell Volume 88 82 - 99 fL 06/08/2024 1:31 AM [facility] Mean Cell Hemoglobin 29.1 26.6 - 33.2 pg 06/08/2024 1:31 AM [facility] Mean Cell Hemoglobin Concentration 33.2 31.1 - 35.2 g/dL 06/08/2024 1:31 AM [facility] RDW-SD 55.7(H) 37.5 - 49.7 fL 06/08/2024 1:31 AM [facility] Red Cell Diameter Width 17.2(H) 11.6 - 15.5 % 06/08/2024 1:31 AM [facility] Platelet 317 160 - 397 K/uL 06/08/2024 1:31 AM [facility] Mean Platelet Volume 9.5 9.1 - 12.6 fL 06/08/2024 1:31 AM [facility] INRBC 0.0 0.0 - 0.1 /100 WBC 06/08/2024 1:31 AM [facility] Comment: The INRBC (instrument NRBC) value reflects the enumeration of nucleated red blood cells contained in a 200uL sample of whole blood analyzed by the instrument. This value may differ from the NRBC value reported in a manual differential, which is based on a 100 cell differential. Neutrophil % 76.4(H) 43.2 - 72.7 % 06/08/2024 1:31 AM [facility] Lymphocyte % 12.4(L) 16.8 - 46.2 % 06/08/2024 1:31 AM [facility] Monocyte % 5.6 5.1 - 12.5 % 06/08/2024 1:31 AM [facility] Eosinophil % 2.4 0.4 - 6.3 % 06/08/2024 1:31 AM [facility] Basophil % 0.5 0.2 - 1.4 % 06/08/2024 1:31 AM [facility] IGRE % 2.7(H) 0.1 - 1.5 % 06/08/2024 1:31 AM [facility] Comment:The IGRE% includes M etamyelocytes, Myelocytes and Promyelocytes. Neutrophil Abs 9.73(H) 1.95 - 7.25 K/uL 06/08/2024 1:31 AM [facility] Lymphocyte Abs 1.58 1.01 - 3.24 K/uL 06/08/2024 1:31 AM [facility] Monocyte Abs 0.71 0.24 - 0.85 K/uL 06/08/2024 1:31 AM [facility] Eosinophil Abs 0.31 0.02 - 0.50 K/uL 06/08/2024 1:31 AM [facility] Basophil Abs 0.07 0.02 - 0.09 K/uL 06/08/2024 1:31 AM [facility] IG Abs 0.34(H) 0.01 - 0.12 K/uL 06/08/2024 1:31 AM [facility] Blood Peripheral blood specimen / Unknown Venipuncture / Unknown 06/08/2024 12:58 AM [facility] 06/08/2024 1:26 AM [facility] us Handy John MD LAB BLOOD ORDERABLES Final R esult [facility] Unless otherwise noted, all lab tests performed by: Division of Pathology and Laboratory Medicine [address] [place] [id number] * Blood Urea Nitrogen (06/08/2024 12:58 AM TELECOM SALES CONSULTANT) Only the most recent of5 resultswithin the time period is included. BUN 11 6 - 23 mg/dL 06/08/2024 1:53 AM TELECOM SALES CONSULTANT [facility] Blood Peripheral blood specimen / Unknown Venipuncture / Unknown 06/08/2024 12:58 AM TELECOM SALES CONSULTANT 06/08/2024 1:26 AM TELECOM SALES CONSULTANT Handy John MD LAB BLOOD ORDERABLES Final R esult Performing Organization Address City/[facility]/ZIP Co de Phone Number [facility] Unless otherwise noted, all lab tests performed by: Division of Pathology and Laboratory Medicine [address] [place] [phone] * (ABNORMAL) Sodium Level (06/08/2024 12:58 AM TELECOM SALES CONSULTANT) Only the most recent of5 resultswithin the time period is included. Sodium Level 135(L) 136 - 145 mmol/L 06/08/2024 1:53 AM TELECOM SALES CONSULTANT [facility] Blood Peripheral blood specimen / Unknown Venipuncture / Unknown 06/08/2024 12:58 AM TELECOM SALES CONSULTANT 06/08/2024 1:26 AM TELECOM SALES CONSULTANT Narrative [facility] - 06/08/2024 1:53 AM TELECOM SALES CONSULTANT Reference range established based on adult population Handy John MD LAB BLOOD ORDERABLES Final R esult [facility] Unless otherwise noted, all lab tests performed by: Division of Pathology and Laboratory Medicine [address] [place] [id number] * Potassium Level (06/08/2024 12:58 AM TELECOM SALES CONSULTANT) Only the most recent of5 resultswithin the time period is included. Potassium Level 3.5 3.4 - 4.5 mmol/L 06/08/2024 1:53 AM TELECOM SALES CONSULTANT [facility] Blood Peripheral blood specimen / Unknown Venipuncture / Unknown 06/08/2024 12:58 AM TELECOM SALES CONSULTANT 06/08/2024 1:26 AM TELECOM SALES CONSULTANT Narrative [facility] - 06/08/2024 1:53 AM TELECOM SALES CONSULTANT Reference range established based on adult population Handy John MD LAB BLOOD ORDERABLES Final R esult Performing Organization Address City/[facility] Co de Phone Number [facility] Unless otherwise noted, all lab tests performed by: Division of Pathology and Laboratory Medicine [address] [place] [id number] * Magnesium Level (06/08/2024 12:58 AM TELECOM SALES CONSULTANT) Only the most recent of6 resultswithin the time period is included. Magnesium Level 1.7 1.6 - 2.6 mg/dL 06/08/2024 1:53 AM TELECOM SALES CONSULTANT [facility] Blood Peripheral blood specimen / Unknown Venipuncture / Unknown 06/08/2024 12:58 AM TELECOM SALES CONSULTANT 06/08/2024 1:26 AM TELECOM SALES CONSULTANT Handy John MD LAB BLOOD ORDERABLES Final R [facility] Performing Organization Address City/[facility] de Phone Number [facility] Unless otherwise noted, all lab tests performed by: Division of Pathology and Laboratory Medicine [address] [place] [id number] * Creatinine (06/08/2024 12:58 AM TELECOM SALES CONSULTANT) Only the most recent of5 resultswithin the time period is included. Creatinine 0.91 0.51 - 0.95 mg/dL 06/08/2024 1:53 AM TELECOM SALES CONSULTANT [facility] eGFR 67 >=60 mL/min/1.7 3 sq. m 06/08/2024 1:53 AM TELECOM SALES CONSULTANT [facility] Comment: The eGFRcr is calculated with the [...] Unknown Venipuncture / Unknown 06/08/2024 12:58 AM TELECOM SALES CONSULTANT 06/08/2024 1:26 AM TELECOM SALES CONSULTANT Handy John MD LAB BLOOD ORDERABLES Final R [facility] Performing Organization Address City/[facility] de Phone Number [facility] Unless otherwise noted, all lab tests performed by: Division of Pathology and Laboratory Medicine [address] [place] [phone] * Chloride Level (06/08/2024 12:58 AM TELECOM SALES CONSULTANT) Only the most recent of5 resultswithin the time period is included. Chloride 104 98 - 107 mmol/L 06/08/2024 1:53 AM TELECOM SALES CONSULTANT [facility] Blood Peripheral blood specimen / Unknown Venipuncture / Unknown 06/08/2024 12:58 AM TELECOM SALES CONSULTANT 06/08/2024 1:26 AM TELECOM SALES CONSULTANT Narrative [facility] - 06/08/2024 1:53 AM TELECOM SALES CONSULTANT Reference range established based on adult population Handy John MD LAB BLOOD ORDERABLES Final R esult Performing Organization Address City/State/[facility] Co de Phone Number [facility] Unless otherwise noted, all lab tests performed by: Division of Pathology and Laboratory Medicine [address] [place] [id number] * (ABNORMAL) Carbon Dioxide Level (06/08/2024 12:58 AM TELECOM SALES CONSULTANT) Only the most recent of5 resultswithin the time period is included. CO2 21(L) 22 - 29 mmol/L 06/08/2024 1:53 AM TELECOM SALES CONSULTANT [facility] Blood Peripheral blood specimen / Unknown Venipuncture / Unknown 06/08/2024 12:58 AM TELECOM SALES CONSULTANT 06/08/2024 1:26 AM TELECOM SALES CONSULTANT Handy John MD LAB BLOOD ORDERABLES Final R esult Performing Organization Address City/[facility]/ZIP Co de Phone Number [facility] Unless otherwise noted, all lab tests performed by: Division of Pathology and Laboratory Medicine [address] [place] [phone] * EKG, 12-Lead (Portable) (06/08/2024) Only the most recent of2 resultswithin the time period is included. Leesa Son HOP GROWER ECG ORDERABLES Final Re sult Performing Organization Address [facility] Co de Phone Number [facility] * Vancomycin Trough Please draw 30 minutes prior to 0500 dose (06/05/2024 4:48 AM TELECOM SALES CONSULTANT) Pathologist [facility] Vancomycin Trough 19.3 5.0 - 20.0 mcg/mL 06/05/2024 5:12 AM TELECOM SALES CONSULTANT [facility] Vancomycin Trough Dose Time 06/05/2024 5:12 AM TELECOM SALES CONSULTANT [facility] Vancomycin Trough Dose Date 06/05/2024 5:12 AM TELECOM SALES CONSULTANT [facility] Blood Peripheral blood specimen / Unknown Venipuncture / Unknown 06/05/2024 4:48 AM TELECOM SALES CONSULTANT 06/05/2024 4:54 AM TELECOM SALES CONSULTANT Narrative [facility] - 06/05/2024 5:12 AM TELECOM SALES CONSULTANT Toxic Trough Level: >20 mcg/ml Uncomplicated MRSA bacteremia: 10-15mcg/mL MRSA bacteremia or endocarditis and other severe invasive MRSA infections (PJI, HAP, CORPORATE SALES REPRESENTATIVE infections): 15-20mcg/mL Handy John MD LAB BLOOD ORDERABLES Final R esult Performing Organization Address City/[facility]/ZIP Co de Phone Number [facility] Unless otherwise noted, all lab tests performed by: Division of Pathology and Laboratory Medicine [address] [place] [phone] * AFB Smear (06/04/2024 4:48 PM TELECOM SALES CONSULTANT) AFB Smear - Truant Stain No Acid-Fast Bacilli seen on fluorescent stain of Direct Specimen. No AFB seen 06/05/2024 12:25 PM TELECOM SALES CONSULTANT [facility] AFB Smear - Kinyoun Stain No Acid-Fast Bacilli seen in Confirmatory Smear. No AFB seen 06/05/2024 12:25 PM TELECOM SALES CONSULTANT [facility] Fluid (Pelvis, Right) 06/04/2024 4:48 PM TELECOM SALES CONSULTANT Handy John MD MICROBIOLOGY - GENERAL ORDER MICHELA Final Result Performing Organization Address [facility] Co de Phone Number [facility] Unless otherwise noted, all lab tests performed by: Division of Pathology and Laboratory Medicine [address] [place] [phone] * (ABNORMAL) Body Fluid Culture w/ Gram Stain (06/04/2024 4:48 PM TELECOM SALES CONSULTANT) Body Fluid Culture Moderate Morganella morganii(A) 06/07/2024 1:04 PM TELECOM SALES CONSULTANT [facility] Body Fluid Culture Moderate Vancomycin-Resis tant Enterococcus faecium(A) 06/07/2024 1:04 PM TELECOM SALES CONSULTANT [facility] Body Fluid Culture Few Gleimia (Actinomyces) europaea(A) 06/07/2024 1:04 PM TELECOM SALES CONSULTANT [facility] Comment:Susceptibility testi ng not performed. Organism is highly susceptible to ampicillin/sulbactam, amoxicillin/clavulanate, ceftriaxone, vancomycin, and linezolid. Body Fluid Culture Many [place] (Actinomyces) turicensis(A) 06/07/2024 1:04 PM TELECOM SALES CONSULTANT [facility] Comment:Susceptibility testi ng not performed. Organism is highly susceptible to ampicillin/sulbactam, amoxicillin/clavulanate, ceftriaxone, vancomycin, and linezolid. Gram Stain Many WBCs seen.(A) 06/07/2024 1:04 PM TELECOM SALES CONSULTANT [facility] Gram Stain Many Gram Positive Cocci(A) 06/07/2024 1:04 PM TELECOM SALES CONSULTANT [facility] Gram Stain Many Gram Negative Rods(A) 06/07/2024 1:04 PM TELECOM SALES CONSULTANT [facility] Gram Stain Few Gram Positive Rods(A) 06/07/2024 1:04 PM TELECOM SALES CONSULTANT [facility] Fluid (Pelvis, Right) 06/04/2024 4:48 PM TELECOM SALES CONSULTANT 06/04/2024 6:50 PM TELECOM SALES CONSULTANT Narrative Organism Antibiotic Method Susceptibility Morganella morganii [...] ORDER MICHELA Final Result Performing Organization Address [facility] de Phone Number [facility] Unless otherwise noted, all lab tests performed by: Division of Pathology and Laboratory Medicine [address] [place] [phone] * (ABNORMAL) Anaerobic Culture (06/04/2024 4:48 PM TELECOM SALES CONSULTANT) Anaerobic Culture >=5 types of aerobic and/or anaerobic derrek excluding Clostridium perfringens, but including:(A) 06/11/2024 8:06 AM TELECOM SALES CONSULTANT [facility] Anaerobic Culture Many Bacteroides fragilis Group(A) 06/11/2024 8:06 AM TELECOM SALES CONSULTANT [facility] Fluid (Pelvis, Right) 06/04/2024 4:48 PM TELECOM SALES CONSULTANT 06/04/2024 6:50 PM TELECOM SALES CONSULTANT Handy John MD MICROBIOLOGY - GENERAL ORDER MICHELA Final Result Performing Organization Address [facility] de Phone Number [facility] Unless otherwise noted, all lab tests performed by: Division of Pathology and Laboratory Medicine [address] [place] [phone] * IR CT GUIDED DEEP DRAIN PLACEMENT (NON-ORGAN) (06/04/2024 4:11 PM TELECOM SALES CONSULTANT) Anatomical Region Laterality Modality Computed Tomogra phy Narrative 06/05/2024 11:20 AM TELECOM SALES CONSULTANT Table formatting from the original result was not included. Date of Procedure: 06/04/24 Attending Physician: Joe Funez MD Help Desk Representative: Jessica Lofton Pre Procedure Diagnosis: Pelvic abscess [[id number]] Post Procedure Diagnosis: Unchanged Indication: pelvic abscesses [...] Sequential dilatation was performed and a 10 Norwegian Mac-loc catheter was formed in the cavity [...] C. auris Screening PCR (06/04/2024 12:10 PM [facility]) Specimen Source Axilla + Groin 06/09/2024 9:07 AM [facility] [email or web address] FRANCINE C auris PCR, Result Negative Not Applicable 06/09/2024 9:07 AM [facility] [email or web address] FRANCINE Comment: ADDITIONAL INFORMATION This test was developed and its performance characteristics determined by [facility] in a manner consistent with CLIA requirements. This test has not been cleared or approved by the U.S. Food and Drug Administration. Test Performed by: [facility] - [address] [address] Force Dispatcher: Alicia Page Ph.D.; CLIA# [id number] Swab (Axilla + Groin) Non-blood Collection / Unknown 06/04/2024 12:10 PM TELECOM SALES CONSULTANT 06/04/2024 12:21 PM TELECOM SALES CONSULTANT Ralph Bucio MD MICROBIOLOGY - GENERAL ORDERABLE S Final Result [facility] FRANCINE * PICC/Non-Tunneled CVAD Removal (06/04/2024 12:02 PM TELECOM SALES CONSULTANT) Narrative Tiki Duran RN - 06/04/2024 12:02 PM TELECOM SALES CONSULTANT Tiki Duran RN 06/04/2024 12:04 PM PICC/Non-Tunneled [...] Result * Hemoglobin A1c (06/04/2024 4:19 AM TELECOM SALES CONSULTANT) Hemoglobin A1c 5.4 4.3 - 5.6 % 06/04/2024 10:53 AM TELECOM SALES CONSULTANT [facility] [place] Blood Venous blood specimen / Unknown CVC Line / Unknown 06/04/2024 4:19 AM TELECOM SALES CONSULTANT 06/04/2024 4:27 AM TELECOM SALES CONSULTANT Narrative [facility] - 06/04/2024 10:53 AM [facility] HbA1c values >=6.5% are diagnostic of diabetes mellitus. Diagnosis should be confirmed by repeat testing. Therapeutic Action suggested: >8.0% HbA1c; Goal of therapy: <7.0% HbA1c Handy John MD LAB BLOOD ORDERABLES Final R esult Performing Organization Address City/[facility]/ZIP Co de Phone Number [facility] Unless otherwise noted, all lab tests performed by: Division of Pathology and Laboratory Medicine [address] [place] [phone] * (ABNORMAL) VBG (06/04/2024 4:19 AM [facility]) pH Venous 7.40 7.32 - 7.43 06/04/2024 4:29 AM [facility] P CO2 Venous 36.3(L) 41.0 - 51.0 mmHg 06/04/2024 4:29 AM [facility] P O2 Venous 37 mmHg 06/04/2024 4:29 AM [facility] Bicarbonate Venous 23 21 - 28 mmol/L 06/04/2024 4:29 AM [facility] Base Excess Venous -2 -2 - 3 mmol/L 06/04/2024 4:29 AM [facility] Oxygen Saturation Venous 68 % 06/04/2024 4:29 AM [facility] Oxygen FLOW Rate/ FiO2 06/04/2024 4:29 AM [facility] O2 Therapy Room air 06/04/2024 4:29 AM [facility] Blood Venous blood specimen / Unknown CVC Line / Unknown 06/04/2024 4:19 AM TELECOM SALES CONSULTANT 06/04/2024 4:27 AM TELECOM SALES CONSULTANT Britta Yoder APRN,[place] LAB BLOOD ORDERABLES F inal Result [facility] Unless otherwise noted, all lab tests performed by: Division of Pathology and Laboratory Medicine [address] [place] [phone] * (ABNORMAL) Urinalysis w/Microscopic if Indicated (06/03/2024 9:41 PM TELECOM SALES CONSULTANT) Urine Appearance Clear Clear 06/03/19 10:28 PM [facility] Urine Color Straw Colorless, Straw, Yellow, Dark Yellow, Straw-Yellow 06/03/2024 10:28 PM [facility] Urine Specific Alvarado 1.019 1.003 - 1.035 06/03/2024 10:28 PM [facility] Urine pH 5.5 5.0 - 8.0 06/03/2024 10:28 PM [facility] Urine Glucose Negative Negative mg/dL 06/03/2024 10:28 PM [facility] Urine Ketones Negative Negative mg/dL 06/03/2024 10:28 PM [facility] Urine Blood Small(A) Negative 06/03/2024 10:28 PM [facility] Urine Protein 30(A) Negative mg/dL 06/03/2024 10:28 PM [facility] Urine Bilirubin Negative Negative 10:28 PM [facility] Urine Urobilinogen Negative Negative 06/03/2024 10:28 PM [facility] Urine Nitrite Negative Negative 06/03/2024 10:28 PM [facility] Urine Leukocyte Esterase Negative Negative 06/03/2024 10:28 PM [facility] Urine (Urine Mays) Non-blood Collection / Unknown 06/03/2024 9:41 PM TELECOM SALES CONSULTANT 06/03/2024 10:10 PM TELECOM SALES CONSULTANT Narrative [facility] - 06/03/2024 10:28 PM TELECOM SALES CONSULTANT Some reporting parameters within the Urinalysis test have changed due to the implementation of new instrumentation in the Main [place], allowing greater sensitivity of measurement. Urinalysis results reported by the [facility] using existing instrumentation, as well as Urinalysis testing performed manually or by back-up methodology at the main [place], will remain relatively unchanged. New reporting parameters and units will now be reported for all campuses. us Handy John MD URINE ORDERABLES Final Resul t Performing Organization Address City/[facility]/ZIP Co de Phone Number [facility] Unless otherwise noted, all lab tests performed by: Division of Pathology and Laboratory Medicine [address] [place] [phone] * (ABNORMAL) Urinalysis Microscopic Exam (06/03/2024 9:41 PM TELECOM SALES CONSULTANT) Urine Mucous Trace Not Seen, Trace /HPF 06/03/2024 10:39 PM TELECOM SALES CONSULTANT [facility] Urine Bacteria Not Seen Not Seen /HPF 06/03/2024 10:39 PM TELECOM SALES CONSULTANT [facility] Urine Squamous Epithelial Cells OCC Not Seen, OCC, Rare /HPF 06/03/2024 10:39 PM TELECOM SALES CONSULTANT [facility] Urine Uric Acid Crystal OCC(A) Not Seen /HPF 06/03/2024 10:39 PM TELECOM SALES CONSULTANT [facility] Urine WBC 4(H) <=2 /HPF 06/03/2024 10:39 PM TELECOM SALES CONSULTANT [facility] Urine RBC 2 <=2 /HPF 06/03/2024 10:39 PM TELECOM SALES CONSULTANT [facility] Urine Hyaline Casts 5(H) <=2 /LPF 06/03/2024 10:39 PM TELECOM SALES CONSULTANT [facility] Urine Granular Casts 4(H) <=0 /LPF 06/03/2024 10:39 PM TELECOM SALES CONSULTANT [facility] Urine (Urine Mays) Non-blood Collection / Unknown 06/03/2024 9:41 PM TELECOM SALES CONSULTANT 06/03/2024 10:10 PM TELECOM SALES CONSULTANT Handy John MD LAB BLOOD ORDERABLES Final R esult [facility] Unless otherwise noted, all lab tests performed by: Division of Pathology and Laboratory Medicine [address] [place] [address] [phone] * Urine Culture (06/03/2024 9:41 PM TELECOM SALES CONSULTANT) Urine Culture No Growth. 06/05/2024 9:10 AM TELECOM SALES CONSULTANT [facility] Urine (Urine Mays) Non-blood Collection / Unknown 06/03/2024 9:41 PM TELECOM SALES CONSULTANT 06/03/2024 10:10 PM TELECOM SALES CONSULTANT Handy John MD MICROBIOLOGY - GENERAL ORDER MICHELA Final Result Performing Organization Address City/[facility] Co de Phone Number [facility] Unless otherwise noted, all lab tests performed by: Division of Pathology and Laboratory Medicine [address] [place] [phone] * Blood culture (06/03/2024 3:49 PM TELECOM SALES CONSULTANT) Only the most recent of2 resultswithin the time period is included. Pathologist [facility] Blood Culture No Growth. 06/08/2024 5:00 PM TELECOM SALES CONSULTANT [facility] Blood Peripheral blood specimen / Unknown Venipuncture / Unknown 06/03/2024 3:49 PM TELECOM SALES CONSULTANT 06/03/2024 4:21 PM TELECOM SALES CONSULTANT Sarah Lomeli MD MICROBIOLOGY - GENERAL ORDERABLES Final Result Performing Organization Address City/[facility] Co de Phone Number [facility] Unless otherwise noted, all lab tests performed by: Division of Pathology and Laboratory Medicine [address] [place] [phone] * Tip Verification Central Vascular Access Device (06/03/2024 2:38 PM TELECOM SALES CONSULTANT) Narrative Sarah Campo MD - 06/03/2024 2:38 PM TELECOM SALES CONSULTANT Sarah Campo MD 06/03/2024 2:40 PM Central Vascular Access Device Tip Verification Performed by: Sarah Campo MD Authorized by: Sarah Campo MD CVAD Properties Date device placed: 06/01/2024 Placed by: [facility] Device placement location: Outside facility Catheter Type: Non-tunneled CVC Catheter lumen: Double lumen Vein location: Femoral Laterality: Right Tip in good position and cleared for infusion Sarah Lomeli MD IV THERAPY ORDERABLES F inal Result * (ABNORMAL) POC Chem 8 without Hemoglobin and Hematocrit (06/03/2024 2:32 PM TELECOM SALES CONSULTANT) POC Sodium 137(L) 138 - 146 mmol/L 06/03/2024 2:41 PM [facility] POC Potassium 3.4(L) 3.5 - 4.9 mmol/L 06/03/2024 2:41 PM [facility] POC Chloride 106 98 - 109 mmol/L 06/03/2024 2:41 PM [facility] POC VTCO2 20(L) 24 - 29 mmol/L 06/03/2024 2:41 PM [facility] POC Anion Gap 15 10 - 20 mmol/L 06/03/2024 2:41 PM [facility] POC BUN 19 8 - 26 mg/dL 06/03/2024 2:41 PM [facility] POC Creatinine 1.7(H) 0.6 - 1.3 mg/dL 06/03/2024 2:41 PM [facility] Comment:Medications, especia lly hydroxyurea or supplements, such as ascorbate, can interfere with test results causing a falsely and significantly higher result than expected. If a problem is suspected with a patient's result, a sample should be sent to the laboratory for confirmatory testing. POC I Glu 115(H) 70 - 99 mg/dL 06/03/2024 2:41 PM [facility] Comment:Medications, especia lly hydroxyurea or supplements, such as ascorbate, can interfere with test results causing a falsely and significantly higher result than expected. If a problem is suspected with a patient's result, a sample should be sent to the laboratory for confirmatory testing. POC Ionized Calcium 1.20 1.12 - 1.32 mmol/L 06/03/2024 2:41 PM [facility] POC Sample Type Venous 2:41 PM [facility] POC eGFR 32(L) >=60 mL/min/1.7 3 sq. m 06/03/2024 2:41 PM [facility] Comment: The eGFRcr is calculated with [...] criteria for CKD. Blood 06/03/2024 2:32 PM TELECOM SALES CONSULTANT 06/03/2024 2:40 PM TELECOM SALES CONSULTANT Narrative [facility] - 06/03/2024 2:41 PM TELECOM SALES CONSULTANT Method description: The i-STAT is an analyzer [...] OF CARE TEST SHU NAIR Final Result [facility] Unless otherwise noted, all lab tests performed by: Division of Pathology and Laboratory Medicine [address] [place] [phone] * (ABNORMAL) POC VBG+LAC (06/03/2024 2:28 PM TELECOM SALES CONSULTANT) POC VB pH. 7.397 7.310 - 7.410 06/03/2024 2:37 PM TELECOM SALES CONSULTANT [facility] POC VB pCO2. 31.8(L) 41.0 - 51.0 mmHg 06/03/2024 2:37 PM TELECOM SALES CONSULTANT [facility] POC VB pO2. 45 mmHg 06/03/2024 2:37 PM TELECOM SALES CONSULTANT [facility] POC VB TCO2 21(L) 24 - 29 mmol/L 06/03/2024 2:37 PM TELECOM SALES CONSULTANT [facility] POC VB Bicarb 19.6(L) 23.0 - 28.0 mmol/L 06/03/2024 2:37 PM TELECOM SALES CONSULTANT [facility] POC VB Base Excess -5(L) -2 - 3 mmol/L 06/03/2024 2:37 PM TELECOM SALES CONSULTANT [facility] POC VB O2 Sat 81 % 06/03/2024 2:37 PM TELECOM SALES CONSULTANT [facility] POC VB LAC 1.28 0.90 - 1.70 mmol/L 06/03/2024 2:37 PM TELECOM SALES CONSULTANT [facility] POC FiO2 0 06/03/2024 2:37 PM TELECOM SALES CONSULTANT [facility] POC Sample Type Venous 06/03/2024 2:37 PM TELECOM SALES CONSULTANT [facility] Blood 06/03/2024 2:28 PM TELECOM SALES CONSULTANT 06/03/2024 2:37 PM TELECOM SALES CONSULTANT Narrative [facility] - 06/03/2024 2:37 PM TELECOM SALES CONSULTANT Method description: The i-STAT is an analyzer [...] POCT ORDERABLES - DEVIC E Final Result [facility] Unless otherwise noted, all lab tests performed by: Division of Pathology and Laboratory Medicine [address] [place] [phone] * Confirm ABORh (06/03/2024 2:27 PM TELECOM SALES CONSULTANT) ABORh Confirm O POS 06/03/2024 2:12 PM TELECOM SALES CONSULTANT [facility] - TRANSFUSION SERVICES Blood Peripheral blood specimen / Unknown Venipuncture / Unknown 06/03/2024 2:27 PM TELECOM SALES CONSULTANT 06/03/2024 2:32 PM TELECOM SALES CONSULTANT Sarah Lomeli MD BLOOD BANK TEST ORDERAB LES Final Result [facility] - TRANSFUSION SERVICES [facility] [address] [facility] [id number] [place] [address] * (ABNORMAL) Procalcitonin (06/03/2024 2:12 PM TELECOM SALES CONSULTANT) Pathologist [facility] Procalcitonin 2.11(H) <=0.08 ng/mL 06/03/2024 3:15 PM TELECOM SALES CONSULTANT [facility] Blood Venous blood specimen / Unknown CVC Line / Unknown 06/03/2024 2:12 PM TELECOM SALES CONSULTANT 06/03/2024 2:32 PM TELECOM SALES CONSULTANT Narrative [facility] - 06/03/2024 3:15 PM TELECOM SALES CONSULTANT Procalcitonin > 2.00 ng/mL: Procalcitonin levels above [...] with extended dilution as it exceeds the biomedical electronics technician's recommended limit. Caution should be exercised when interpreting such values and done in conjunction with clinical context. us Sarah Lomeli MD LAB BLOOD ORDERABLES Fi nal Result [facility] Unless otherwise noted, all lab tests performed by: Division of Pathology and Laboratory Medicine [address] [place] [address] * Fractionated Bilirubin (06/03/2024 2:12 PM TELECOM SALES CONSULTANT) [facility] Bilirubin Direct 0.2 0.0 - 0.2 mg/dL 06/03/2024 3:34 PM TELECOM SALES CONSULTANT [facility] Comment:Indocyanine Green (I CG) may cause falsely elevated bilirubin results. Total and direct bilirubin must not be measured from samples containing indocyanine green. Bilirubin Indirect 0.1 0.0 - 1.0 mg/dL 06/03/2024 3:34 PM TELECOM SALES CONSULTANT [facility] Bilirubin Total 0.3 0.0 - 1.2 mg/dL 06/03/2024 3:34 PM TELECOM SALES CONSULTANT [facility] Comment: Indocyanine Green (ICG) may cause falsely [...] CVC Line / Unknown 06/03/2024 2:12 PM TELECOM SALES CONSULTANT 06/03/2024 2:32 PM TELECOM SALES CONSULTANT Sarah Lomeli MD LAB BLOOD ORDERABLES Fi nal Result [facility] Unless otherwise noted, all lab tests performed by: Division of Pathology and Laboratory Medicine [address] [place] [phone] * (ABNORMAL) Comprehensive Metabolic Panel (06/03/2024 2:12 PM TELECOM SALES CONSULTANT) Pathologist [facility] Bilirubin Total 0.3 0.0 - 1.2 mg/dL 06/03/2024 3:34 PM TELECOM SALES CONSULTANT [facility] Comment:Indocyanine Green (I CG) may cause falsely elevated bilirubin results. Total and direct bilirubin must not be measured from samples containing indocyanine green. False elevation of total bilirubin can be seen in patients with IgG concentrations above 28 g/L. eGFR 36(L) >=60 mL/min/1. 73 sq. m 06/03/2024 3:34 PM TELECOM SALES CONSULTANT [facility] Comment: The eGFRcr is calculated with the [...] 6.4 - 8.3 gm/dL 06/03/2024 3:34 PM [facility] Calcium Level Total 8.6 8.2 - 10.2 mg/dL 06/03/2024 3:34 PM [facility] Alkaline Phosphatase 105(H) 35 - 104 U/L 06/03/2024 3:34 PM [facility] Albumin Level 2.1(L) 3.5 - 5.2 gm/dL 06/03/2024 3:34 PM [facility] AST 40(H) <=32 U/L 06/03/2024 3:34 PM [facility] ALT 12 <=33 U/L 06/03/2024 3:34 PM [facility] Sodium Level 138 136 - 145 mmol/L 06/03/2024 3:34 PM [facility] Potassium Level 3.4 3.4 - 4.5 mmol/L 06/03/2024 3:34 PM [facility] Chloride 105 98 - 107 mmol/L 06/03/2024 3:34 PM [facility] CO2 19(L) 22 - 29 mmol/L 06/03/2024 3:34 PM [facility] Anion Gap 14 4 - 14 mmol/L 06/03/2024 3:34 PM [facility] Creatinine 1.53(H) 0.51 - 0.95 mg/dL 06/03/2024 3:34 PM [facility] BUN 20 6 - 23 mg/dL 06/03/2024 3:34 PM [facility] Glucose Level 114(H) 70 - 99 mg/dL 06/03/2024 3:34 PM TELECOM SALES CONSULTANT [facility] Comment: Effective 12/07/15, the glucose reference intervals have been updated based on [place] [employer] guidelines (Standards of Medical Care [...] CVC Line / Unknown 06/03/2024 2:12 PM TELECOM SALES CONSULTANT 06/03/2024 2:32 PM TELECOM SALES CONSULTANT Sarah Lomeli MD LAB BLOOD ORDERABLES Fi nal Result Performing Organization Address City/[facility]/ZIP Co de Phone Number [facility] Unless otherwise noted, all lab tests performed by: Division of Pathology and Laboratory Medicine [address] [place] [phone] * (ABNORMAL) aPTT (06/03/2024 2:12 PM TELECOM SALES CONSULTANT) Pathologist [facility] Activated PTT 37.3(H) 24.8 - 35.6 second(s) 06/03/2024 3:20 PM TELECOM SALES CONSULTANT [facility] Blood Venous blood specimen / Unknown CVC Line / Unknown 06/03/2024 2:12 PM TELECOM SALES CONSULTANT 06/03/2024 2:32 PM TELECOM SALES CONSULTANT Sarah Lomeli MD LAB BLOOD ORDERABLES Fi nal Result [facility] Unless otherwise noted, all lab tests performed by: Division of Pathology and Laboratory Medicine [address] [place] [phone] * (ABNORMAL) Prothrombin Time with INR (06/03/2024 2:12 PM TELECOM SALES CONSULTANT) Prothrombin Time 16.2(H) 12.2 - 14.4 second(s) 06/03/2024 3:20 PM TELECOM SALES CONSULTANT [facility] International Normalization Ratio 1.33(H) 0.91 - 1.10 06/03/2024 3:20 PM TELECOM SALES CONSULTANT [facility] Blood Venous blood specimen / Unknown CVC Line / Unknown 06/03/2024 2:12 PM TELECOM SALES CONSULTANT 06/03/2024 2:32 PM TELECOM SALES CONSULTANT Result Zachary Lomeli MD LAB BLOOD ORDERABLES Fi nal Result Performing Organization Address City/[facility] Co de Phone Number [facility] Unless otherwise noted, all lab tests performed by: Division of Pathology and Laboratory Medicine [address] [place] [address] [phone] * (ABNORMAL) Fibrinogen (06/03/2024 2:12 PM TELECOM SALES CONSULTANT) [facility] Fibrinogen 605(H) 214 - 503 mg/dL 06/03/2024 3:20 PM TELECOM SALES CONSULTANT [facility] Blood Venous blood specimen / Unknown CVC Line / Unknown 06/03/2024 2:12 PM TELECOM SALES CONSULTANT 06/03/2024 2:32 PM TELECOM SALES CONSULTANT Result Zachary Lomeli MD LAB BLOOD ORDERABLES Fi nal Result Performing Organization Address City/[facility] de Phone Number [facility] Unless otherwise noted, all lab tests performed by: Division of Pathology and Laboratory Medicine [address] [place] [phone] * (ABNORMAL) D Dimer (06/03/2024 2:12 PM TELECOM SALES CONSULTANT) Pathologist [facility] D-Dimer 8.29(H) 0.10 - 0.50 mcg/ml FEU 06/03/2024 3:20 PM TELECOM SALES CONSULTANT [facility] Blood Venous blood specimen / Unknown CVC Line / Unknown 06/03/2024 2:12 PM TELECOM SALES CONSULTANT 06/03/2024 2:32 PM TELECOM SALES CONSULTANT Narrative [facility] - 06/03/2024 3:20 PM TELECOM SALES CONSULTANT The cut off value for exclusion of venous thromboembolism is <0.51 mcg/mL FEUs (fibrinogen equivalent units). us Sarah Lomeli MD LAB BLOOD ORDERABLES Fi nal Result [facility] Unless otherwise noted, all lab tests performed by: Division of Pathology and Laboratory Medicine [address] [place] [id number] * Type and Screen (06/03/2024 2:12 PM TELECOM SALES CONSULTANT) ABORh O POS 06/03/2024 1:40 PM TELECOM SALES CONSULTANT [facility] - TRANSFUSION SERVICES ABSC Negative 06/03/2024 1:40 PM TELECOM SALES CONSULTANT [facility] - TRANSF[facility]ION [facility] Clot Expiration 2024 23:59 06/03/2024 1:40 PM TELECOM SALES CONSULTANT [facility] - [facility]SF[facility]ION [facility] Historical Record Check No History 06/03/2024 1:40 PM TELECOM SALES CONSULTANT [facility] - TRANSF[facility]ION [facility] Blood Venous blood specimen / Unknown CVC Line / Unknown 06/03/2024 2:12 PM TELECOM SALES CONSULTANT 06/03/2024 2:32 PM TELECOM SALES CONSULTANT Sarah Lomeli MD BLOOD BANK TEST ORDERAB LES Final Result [facility] - TRANSFUSION SERVICES [facility] [address] [place] [address] [id number] [place] [address] * CRP (C-reactive protein) (06/03/2024 2:12 PM TELECOM SALES CONSULTANT) CRP (C Reactive Protein) >285.00 mg/L 06/03/2024 3:32 PM TELECOM SALES CONSULTANT [facility] Blood Venous blood specimen / Unknown CVC Line / Unknown 06/03/2024 2:12 PM TELECOM SALES CONSULTANT 06/03/2024 2:32 PM TELECOM SALES CONSULTANT Narrative [facility] - 06/03/2024 3:32 PM TELECOM SALES CONSULTANT Adult Reference ranges for HS CRP assay are as follows: Reference ranges when used to assess cardiac risk: <1.00 mg/L Low cardiovascular risk 1.00-3.00 mg/L Average cardiovascular risk >3.00 mg/L High cardiovascular risk Reference ranges when used to assess inflammatory responses: > 10.00 mg/L Sarah Lomeli MD LAB BLOOD ORDERABLES Fi nal Result Performing Organization Address City/[facility]/ZIP Co de Phone Number [facility] Unless otherwise noted, all lab tests performed by: Division of Pathology and Laboratory Medicine [address] [place] [phone] * Phosphorus Level (06/03/2024 2:12 PM TELECOM SALES CONSULTANT) [facility] Phosphorus Level 3.6 2.5 - 4.5 mg/dL 06/03/2024 3:34 PM TELECOM SALES CONSULTANT [facility] Blood Venous blood specimen / Unknown CVC Line / Unknown 06/03/2024 2:12 PM TELECOM SALES CONSULTANT 06/03/2024 2:32 PM TELECOM SALES CONSULTANT Result Zachary Lomeli MD LAB BLOOD ORDERABLES Fi nal Result Performing Organization Address [facility] Co de Phone Number [facility] Unless otherwise noted, all lab tests performed by: Division of Pathology and Laboratory Medicine [address] [place] [phone] * (ABNORMAL) LDH (06/03/2024 2:12 PM TELECOM SALES CONSULTANT) [facility] LDH 1,018(H) 135 - 214 U/L 06/03/2024 3:16 PM TELECOM SALES CONSULTANT [facility] Blood Venous blood specimen / Unknown CVC Line / Unknown 06/03/2024 2:12 PM TELECOM SALES CONSULTANT 06/03/2024 2:32 PM TELECOM SALES CONSULTANT Narrative [facility] - 06/03/2024 3:16 PM TELECOM SALES CONSULTANT Results greater than 1651 U/L may not be reliable due to matrix effect with extended dilution as it exceeds the biomedical electronics technician's recommended limit. Caution should be exercised when interpreting such values and done in conjunction with clinical context. Result Zachary Lomeli MD LAB BLOOD ORDERABLES Fi nal Result Performing Organization Address City/[facility] Co de Phone Number [facility] Unless otherwise noted, all lab tests performed by: Division of Pathology and Laboratory Medicine [address] [place] [phone] * Respiratory Multiplex PCR Panel, Nasopharyngeal Swab (06/03/2024 2:07 PM TELECOM SALES CONSULTANT) Pathologist [facility] Adenovirus Not Detected Not Detected 06/03/2024 3:17 PM TELECOM SALES CONSULTANT [facility] Coronavirus 229E Not Detected Not Detected 06/03/2024 3:17 PM TELECOM SALES CONSULTANT [facility] Coronavirus HKU1 Not Detected Not Detected 06/03/2024 3:17 PM TELECOM SALES CONSULTANT [facility] Coronavirus NL63 Not Detected Not Detected 06/03/2024 3:17 PM TELECOM SALES CONSULTANT [facility] Coronavirus OC43 Not Detected Not Detected 06/03/2024 3:17 PM TELECOM SALES CONSULTANT [facility] COVID-19 (SARS-CoV-2) Not Detected Not Detected 06/03/2024 3:17 PM TELECOM SALES CONSULTANT [facility] Human Metapneumovirus Not Detected Not Detected 06/03/2024 3:17 PM TELECOM SALES CONSULTANT [facility] Human Rhinovirus/Enterov irus Not Detected Not Detected 06/03/2024 3:17 PM TELECOM SALES CONSULTANT [facility] Influenza A Not Detected Not Detected 06/03/2024 3:17 PM TELECOM SALES CONSULTANT [facility] Influenza A H1 Not Detected Not Detected 06/03/2024 3:17 PM TELECOM SALES CONSULTANT [facility] Influenza A H1 2009 Not Detected Not Detected 06/03/2024 3:17 PM TELECOM SALES CONSULTANT [facility] Influenza A H3 Not Detected Not Detected 06/03/2024 3:17 PM [facility] Influenza B Not Detected Not Detected 06/03/2024 3:17 PM [facility] Parainfluenza Virus 1 Not Detected Not Detected 06/03/2024 3:17 PM [facility] Parainfluenza Virus 2 Not Detected Not Detected 06/03/2024 3:17 PM [facility] Parainfluenza Virus 3 Not Detected Not Detected 06/03/2024 3:17 PM [facility] Parainfluenza Virus 4 Not Detected Not Detected 06/03/2024 3:17 PM [facility] Respiratory Syncytial Virus Not Detected Not Detected 06/03/2024 3:17 PM TELECOM SALES CONSULTANT [facility] Bordetella parapertussis Not Detected Not Detected 06/03/2024 3:17 PM [facility] Bordetella pertussis Not Detected Not Detected 06/03/2024 3:17 PM TELECOM SALES CONSULTANT [facility] Chlamydophila pneumoniae Not Detected Not Detected 06/03/2024 3:17 PM TELECOM SALES CONSULTANT [facility] Mycoplasma pneumoniae Not Detected Not Detected 06/03/2024 3:17 PM TELECOM SALES CONSULTANT [facility] Swab Nasopharyngeal structure / Unknown Non-blood Collection / Unknown 06/03/2024 2:07 PM TELECOM SALES CONSULTANT 06/03/2024 2:18 PM TELECOM SALES CONSULTANT [facility] - 06/03/2024 3:17 PM TELECOM SALES CONSULTANT The assay is a qualitative multiplex PCR assay to aid in the diagnosis of respiratory pathogens through simultaneous qualitative detection and identification of multiple pathogens directly from nasopharyngeal swabs (PHARMACY ASSOCIATE) from individuals with respiratory symptoms. Testing is performed using the [employer] Respiratory Panel 2.1 (RP2.1) on the [employer] System. The following organisms are identified using the [employer]Vu RP 2.1 Panel: Adenovirus, Human Coronavirus (229E, [...] verified by the microbiology laboratory at the [facility] (CLIA Accreditation # [id number] and CAP Accreditation # [id number]). Results must be interpreted within the context of all relevant clinical and laboratory findings. Assay should not be used for monitoring response to therapy. Result Zachary Lomeli MD MICROBIOLOGY - GENERAL ORDERABLES Final Result [facility] Unless otherwise noted, all lab tests performed by: Division of Pathology and Laboratory Medicine [facility] [place] [address] * OSI Chest (06/02/2024 2:47 PM TELECOM SALES CONSULTANT) Narrative Systemgenerated, Documentation - 06/03/2024 2:47 PM TELECOM SALES CONSULTANT Study acquired at another institution. For comparison only. No [facility] originated interpretation requested or available. Result [facility] Sarah Lomeli MD IMG OUTSIDE IMAGE ORDER MICHELA Final Result * OSI CT Brain (06/02/2024 2:47 PM TELECOM SALES CONSULTANT) Narrative Systemgenerated, Documentation - 06/03/2024 2:47 PM TELECOM SALES CONSULTANT Study acquired at another institution. For comparison only. No [facility] originated interpretation requested or available. Result [facility] Sarah Lomeli MD IMG OUTSIDE IMAGE ORDER MICHELA Final Result * OSI CT ABDOMEN AND PELVIS (06/02/2024 2:47 PM TELECOM SALES CONSULTANT) 06/03/2024 2:48 PM TELECOM SALES CONSULTANT Impressions [id number] - 06/03/2024 3:13 PM TELECOM SALES CONSULTANT 1. Interpretation of outside CT examination. Limited [...] that are unexpected and potentially actionable. 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
--- NOTE | 2024-06-17 15:44 | RAD REPORT ---
EXAM: CT CHEST, ABDOMEN AND PELVIS WITHOUT CONTRAST CLINICAL INDICATION: Female, 69 years old. [facility] MAIN Mental status change;Pain Bed Name: 14 TECHNIQUE: CT chest, abdomen and pelvis was performed, without IV contrast, as per department protoco l. Axial, sagittal and coronal reconstructions were obtained. One or more of the following dose reduction techniques were used: Automated exposure control, adjustment of the mA and/or kV according to the patient size, and/or iterative reconstruction. Unless otherwise specified, incidental findings do not require dedicated imaging follow-up. COMPARISON: 06/11/2024 CT abdomen pelvis FINDINGS: The lack of intravenous contrast limits the sensitivity of this exam for evaluation of solid visceral organs, vascular structures, and retroperitoneum. Chest: LOWER NECK/CHEST WALL: Visualized thyroid gland and soft tissues are normal. LUNGS AND AIRWAYS: Airways are clear. No evidence of airspace or interstitial process. No nodules. PLEURA: Trace left pleural effusion, stable, with mild underlying atelectasis. No pneumothorax. Hemid iaphragms are normally positioned. MEDIASTINUM AND LYMPH NODES: No mediastinal mass or fluid collection. Normal size mediastinal, hilar, and axillary lymph nodes. THORACIC AORTA: Normal caliber and configuration. PULMONARY ARTERIES: Normal caliber. HEART: Unremarkable. Abdomen/Pelvis LIVER: Normal in size and contour. No focal lesion. GALLBLADDER/BILE DUCTS: Gallbladder sludge. No biliary ductal dilatation. PANCREAS: No mass, ductal dilation, or austyn-pancreatic fluid. SPLEEN: Normal size. No focal lesion. ADRENALS: Normal; no mass. KIDNEYS AND URETERS: Normal size and contour. No hydronephrosis. GASTROINTESTINAL TRACT: Stomach is non-dilated. Small bowel has normal course and caliber. No colonic wall thickening or pericolonic inflammatory changes. PERITONEUM: No free fluid. LYMPH NODES: Stable enlarged lymph nodes along the right common iliac vessels, measuring 2.1 and 1.8 cm in greatest dimensions, and along the right external iliac chain, measuring 1.8 cm. ABDOMINAL AORTA AND OTHER VESSELS: Normal caliber aorta and IVC. URINARY BLADDER: Bladder wall thickening with decompression which limits evaluation. The anterior mar gin of the abnormality described below above the dome of the bladder is markedly thinned. REPRODUCTIVE ORGANS: Large mass with internal liquefaction and locules of gas centered on the uterine cervix and lower segment of the uterus again seen. Inflammatory fat stranding just above the bladder dome, approximating the serosa of the anterior uterine wall, now with accumulation of air-flu id level measuring 4.7 x 4.8 x 2.9 cm. This could be within the mural layers of the bladder, versus a contained collection just above the dome. Questionable right adnexal focus of gas measuring 2.4 cm, decreased in size from the prior exam with no appreciable fluid component, again suggestive of a small contained leak. MUSCULOSKELETAL: No acute or suspicious osseous abnormality. ADDITIONAL FINDINGS: Diastasis recti with sequelae of mesh repair. IMPRESSION: New small collection of fluid and gas just superior to the bladder dome, measuring up to 4.8 cm in gr eatest dimension. This could be within the suprapubic space, or within the mural layers of the bladder. Redemonstration of large mass centered on the cervix and lower uterine segment, with right iliac/pelv ic sidewall adenopathy. Interval decrease in size of gas containing small collection in the right adnexal region measuring 2. 4 cm today (previously measured 2.8 cm, again may relate to a contained leak. Other incidental findings as above.
--- NOTE | 2024-06-17 15:48 | RAD REPORT ---
EXAM: CT brain without contrast HISTORY: pain COMPARISON: None TECHNIQUE: Multiple contiguous axial images were obtained and a CT of the brain without contrast. Sag ittal and coronal reformats were performed. FINDINGS: No evidence of hydrocephalus, intracranial hemorrhage, or extra-axial fluid collection. The brain is normal in morphology. The calvarium is intact. The visualized paranasal sinuses and mastoid air cells are essentially clear . IMPRESSION: No evidence of acute intracranial abnormality. EXAM: CT of the cervical spine without contrast HISTORY: pain COMPARISON: None TECHNIQUE: Multiple contiguous axial images were obtained in a CT of the cervical spine without contr ast. Sagittal and coronal reformats were performed. FINDINGS: The vertebral bodies demonstrate normal height and alignment. No evidence of acute fracture or subluxation.. No degenerative changes are present. No prevertebral soft tissue swelling is seen. The posterior facets are well aligned. Normal alignment of the skull base with the cervical spine is seen. The lung apices are unremarkable. Mildly prominent right paratracheal lymph nodes, measuring up to 8m m in short axis, indeterminate. IMPRESSION: No evidence of acute osseous abnormality of the cervical spine. Mildly prominent right paratracheal lymph nodes, up to 8 mm in short axis, indeterminate.
--- NOTE | 2024-06-17 15:49 | RAD REPORT ---
EXAMINATION: ONE VIEW CHEST XR CLINICAL INDICATION: Female, 69 years old.,COUGH TECHNIQUE: Frontal chest projection is submitted. Examination is limited by patient positioning and t echnique. COMPARISON: 06/11/2024 FINDINGS: The lungs are grossly clear although suboptimal inspiratory effort somewhat limits evaluation. No pn eumothorax or sizable effusion. The heart is normal in size. Mediastinal contours are unremarkable. IMPRESSION: No acute intrathoracic abnormalities.
[2024-06-17] MEDS ORDERED: CEFTRIAXONE 1000 MG/VIAL ONE (15:53)
[2024-06-17] MEDS ORDERED: NA CHLORIDE 0.9% 50 ML ONE (15:54)
[2024-06-17] MEDS ORDERED: FAMOTIDINE 20 MG/2 ML VIAL IV ONE (15:54)
[2024-06-17 16:02] LABS: Absolute Basophils 0.1 K/uL (0-0.5); Absolute Eosinophils 0.2 K/uL (0-0.5); Absolute Lymphocytes (CBC) 1.2 K/uL (0.7-4.9); Absolute Monocytes 0.7 K/uL (0.1-1.3); Absolute Neutrophil 8.7 K/uL (1.8-8.0); Basophils % 0.7 % (0-1.3); Eosinophils % 1.6 % (0-4.4); Hematocrit 30.5 % (36.0-45.0); Hemoglobin 10.3 g/dL (12.0-15.0); Lymphocytes % 11.2 % (15.3-44.8); MCH 30.2 pg (27.0-35.0); MCHC 33.9 g/dL (32.0-36.0); MPV 6.7 fL (7.6-11.3); Neutrophils % 80.5 % (41.7-73.7); Platelets 356 thou/uL (152-406); RBC Red Blood Cell Count 3.43 M/uL (3.86-4.86); Red Cell Distribution Width 15.8 % (12.1-15.2)
[2024-06-17 16:17] LABS: PT Prothrombin Time 14.5 SECONDS (9.4-12.5); Protime INR 1.39
[2024-06-17 16:57] LABS: AST/SGOT 39 U/L (15-37); Albumin 1.6 g/dL (3.4-5.0); Albumin/Globulin Ratio 0.3 (1.1-1.8); Alkaline Phosphatase 120 U/L (45-117); Anion Gap 11.7 mEq/L (5.0-15.0); BUN Blood Urea Nitrogen 12 mg/dL (7-18); Bicarbonate 28 mEq/L (21-32); Bilirubin Direct 0.2 mg/dL (0-0.2); Bilirubin Indirect, Calculated 0.3 mg/dL (0.2-0.8); Bilirubin Total 0.5 mg/dL (0.2-1.0); Globulin 5.1 g/dL (2.3-3.5); Glomerular Filtration Rate 31 ml/min (=/>90); Glucose Level 108 mg/dL (74-106); Lipase 11 U/L (13-75); Magnesium 1.1 mg/dL (1.6-2.4); NT PRO-BNP 2232 pg/mL (<125); Potassium 4.7 mEq/L (3.5-5.1); Protein, Total 6.7 g/dL (6.4-8.2); Sodium Level 132 mEq/L (136-145); Troponin High Sensitivity 22.5 pg/mL (<58.9)
[2024-06-17 16:58] LABS: ALT/SGPT < 14 U/L (13-56)
[2024-06-17] MEDS ORDERED: HYDROMORPHONE HCL 0.5 MG/0.5 ML INJ ONE (17:32)
[2024-06-17] MEDS ORDERED: ONDANSETRON 4 MG/2 ML VIAL ONE (17:33)
[2024-06-17] MEDS ORDERED: TRANEXAMIC ACID 1,000 MG/10 ML VIAL IV ONE (17:55)
[2024-06-17] MEDS ORDERED: NA CHLORIDE 0.9% 100 ML ONE ×2 (18:07→18:37)
--- NOTE | 2024-06-17 18:14 | EDPHYS ---
Physician Documentation [facility] Name: Christa Jackson Age: 69 yrs Sex: Female : 1955 Arrival Date: 06/17/2024 Time: 13:16 Bed 14 Private MD: ED Physician Wilber Ascencio HPI: 06/17 17:33 This 69 yrs old Female presents to ER via EMS with complaints of Blood erika Pressure Problem - increased confusion. Historical: - Allergies: 13:31 No Known Allergies; bm7 - Home Meds: 13:31 atorvastatin 40 mg Oral tab 1 tab once daily [Active]; carvedilol 3.125 mg Oral tab 1 bm7 tab 2 times per day [Active]; levocetirizine 5 mg Oral tab 1 tab once daily [Active]; metformin 500 mg Oral tab 2 tabs 2 times per day [Active]; prednisone 5 mg Oral tab 3 tab once daily [Active]; Vitamin D2 50 Oral cap 1 cap once wkly [Active]; paroxetine HCl 20 mg Oral tab 1 tab once daily [Active]; - PMHx: 13:31 Cervical cancer (stage 3) (Hypertension); Diabetes - IDDM; Depression; Hypertension; bm7 High Cholesterol; - PSHx: 13:31 hernia repair; bm7 - Immunization history:: Adult Immunizations unknown. - Infectious Disease History:: Denies. - Social history:: Smoking status: Patient/guardian denies using. ROS: 18:05 Constitutional: Negative for fever, chills, and weight loss, Eyes: Negative for injury, erika pain, redness, and discharge, ENT: Negative for injury, pain, and discharge, Neck: Negative for injury, pain, and swelling, Cardiovascular: Negative for chest pain, palpitations, and edema, Respiratory: Negative for shortness of breath, cough, wheezing, and pleuritic chest pain, Back: Negative for injury and pain, MS/Extremity: Negative for injury and deformity, Skin: Negative for injury, rash, and discoloration, Neuro: Negative for headache, weakness, numbness, tingling, and seizure, Psych: Negative for depression, anxiety, suicide ideation, homicidal ideation, and hallucinations, Allergy/Immunology: Negative for hives, rash, and allergies, Endocrine: Negative for neck swelling, polydipsia, polyuria, polyphagia, and marked weight changes, Hematologic/Lymphatic: Negative for swollen nodes, abnormal bleeding, and unusual bruising, 18:05 Abdomen/GI: Positive for abdominal pain, abdominal cramps, of the suprapubic area, right lower quadrant and left lower quadrant, 18:05 : Positive for urinary symptoms, vaginal bleeding, Exam: 18:05 Constitutional: This is a well developed, well nourished patient who is awake, alert, erika and in no acute distress. Head/Face: Normocephalic, atraumatic. Eyes: Pupils equal round and reactive to light, extra-ocular motions intact. Lids and lashes normal. Conjunctiva and sclera are non-icteric and not injected. Cornea within normal limits. Periorbital areas with no swelling, redness, or edema. ENT: Nares patent. No nasal discharge, no septal abnormalities noted. Tympanic membranes are normal and external auditory canals are clear. Oropharynx with no redness, swelling, or masses, exudates, or evidence of obstruction, uvula midline. Mucous membranes moist. Neck: Trachea midline, no thyromegaly or masses palpated, and no cervical lymphadenopathy. Supple, full range of motion without nuchal rigidity, or vertebral point tenderness. No Meningismus. Chest/axilla: Normal chest wall appearance and motion. Nontender with no deformity. No lesions are appreciated. Cardiovascular: Regular rate and rhythm with a normal S1 and S2. No gallops, murmurs, or rubs. Normal PMI, no JVD. No pulse deficits. Respiratory: Lungs have equal breath sounds bilaterally, clear to auscultation and percussion. No rales, rhonchi or wheezes noted. No increased work of breathing, no retractions or nasal flaring. Back: No spinal tenderness. No costovertebral tenderness. Full range of motion. Skin: Warm, dry with normal turgor. Normal color with no rashes, no lesions, and no evidence of cellulitis. MS/ Extremity: Pulses equal, no cyanosis. Neurovascular intact. Full, normal range of motion., bilateral aka Neuro: Awake and alert, GCS 15, oriented to person, place, time, and situation. Cranial nerves II-XII grossly intact. Motor strength 5/5 in all extremities. Sensory grossly intact. Cerebellar exam normal. Normal gait. Psych: Awake, alert, with orientation to person, place and time. Behavior, mood, and affect are within normal limits. 18:05 ECG was reviewed by the Attending Physician. 18:05 Abdomen/GI: Inspection: distension, that is mild, Bowel sounds: active, Palpation: moderate abdominal tenderness, in the right lower quadrant and left lower quadrant, Liver: no appreciated palpable abnormalities, Hernia: not appreciated, Vital Signs: 13:25 BP 113 / 70 LA Supine (auto/reg); Pulse 110; Resp 20; Temp 98.4(O); Pulse Ox 97% on R/A;bm7 14:29 BP 139 / 90; Pulse 89; Resp 17; Pulse Ox 100% on R/A; ap3 14:29 Weight 91.17 kg; ap3 16:07 BP 113 / 73; Pulse 89; ap3 17:03 BP 160 / 91; Pulse 89; Resp 19; ap3 18:18 BP 101 / 74; Pulse 99; Resp 17; ap3 MDM: 13:24 Medical Screening Exam initiated erika 18:07 Differential Diagnosis altered mental status, sepsis, flu. Differential diagnosis: [facility] Nonspecific abd pain, diverticulitis, bowel obstruction, coronary artery disease, diverticulitis, gastritis, GI Bleed, Mesenteric ischemia or infarction, non-specific abd pain, pancreatitis, urinary tract infection. Data reviewed: vital signs, nurses notes, EMS record, lab test result(s), EKG, radiologic studies, CT scan, plain films. Consideration of Admission/Observation Escalation of care including admission/observation considered. I considered the following discharge prescriptions or medication management in the emergency department Medications were administered in the Emergency Department. See MAR. Independent interpretation of the following test(s) in the Emergency Department EKG: See my EKG interpretation above. Test considered but Not performed: MRI: NO MRI PELVIS. Historians other than the Patient: Daughter/Son: DAUGHTER , WELL INFORMED. Care significantly affected by the following chronic conditions: Diabetes, Hypertension, Obesity, Cancer. 06/17 13:27 Order name: Basic Metabolic Panel; Complete Time: 17:14 [facility] 06/17 13:27 Order name: CBC with Diff; Complete Time: 17:14 [facility] 06/17 13:27 Order name: LFT's; Complete Time: 17:14 [facility] 06/17 13:27 Order name: Magnesium; Complete Time: 17:14 [facility] 06/17 13:27 Order name: NT PRO-BNP; Complete Time: 17:14 [facility] 06/17 13:27 Order name: PT-INR; Complete Time: 17:14 [facility] 06/17 13:27 Order name: Troponin HS; Complete Time: 17:14 [facility] 06/17 13:27 Order name: Lipase; Complete Time: 17:14 [facility] 06/17 13:27 Order name: Urinalysis w/ reflexes [facility] 06/17 13:27 Order name: Blood Culture Adult (2) [facility] 06/17 13:27 Order name: Lactate w/ 2H reflex if indic.; Complete Time: 17:14 [facility] 06/17 16:25 Order name: Ghost Lactate-NO COLLECT Timer; Complete Time: 21:21 [facility] 06/17 23:18 Order name: Urinalysis w/ reflexes [facility] 06/17 23:18 Order name: CBC with Automated Diff [facility] 06/17 23:18 Order name: CBC with Automated Diff [facility] 06/17 23:18 Order name: Comprehensive Metabolic Panel [facility] 06/17 23:18 Order name: Comprehensive Metabolic Panel [facility] 06/18 07:56 Order name: Glucose, Ancillary Testing [facility] 06/18 10:16 Order name: Lactate Sepsis 2 HR Follow-up ED[facility] 06/18 10:24 Order name: CBC Smear Scan [facility] 06/18 12:22 Order name: Glucose, Ancillary Testing [facility] 06/17 13:27 Order name: XRAY Chest (1 view); Complete Time: 17:14 [facility] 06/17 13:38 Order name: Head C Spine Mpr Wo Con; Complete Time: 17:14 [facility] 06/17 13:39 Order name: Chest Abd Pelvis Wo Con; Complete Time: 17:14 [facility] 06/17 23:18 Order name: CONS Physician Consult [facility] 06/17 13:27 Order name: Cardiac monitoring; Complete Time: 14:12 [facility] 06/17 13:27 Order name: EKG - Nurse/Tech; Complete Time: 14:12 [facility] 06/17 13:27 Order name: IV Saline Lock; Complete Time: 15:35 [facility] 06/17 13:27 Order name: Labs collected and sent; Complete Time: 16:07 [facility] 06/17 13:27 Order name: O2 Per Protocol; Complete Time: 14:12 [facility] 06/17 13:27 Order name: O2 Sat Monitoring; Complete Time: 14:12 [facility] 06/17 13:27 Order name: IV Saline Lock - Large Bore; Complete Time: 16:07 erika 06/17 17:29 Order name: Tabatha; Complete Time: 18:17 erika EC:05 Rate is 97 beats/min. Rhythm is regular. QRS [place] is Normal. UT interval is normal. QRS erika interval is normal. QT interval is normal. No Q waves. T waves are Normal. No ST changes noted. Clinical impression: Sinus tachycardia and No evidence of ischemia. Interpreted by me. Reviewed by me. Administered Medications: 16:05 Drug: Famotidine IVP 20 mg IVP once; dilute with 10 mL 0.9% NaCl; give over 2 minutes ap3 Route: IVP; Site: right upper arm; 18:17 Follow up: Response: No adverse reaction ap3 16:06 Drug: Rocephin IV 1 grams IV at per protocol once; Given slow IV push per pharmacy ap3 instructions Route: IV; Rate: per protocol; Site: left upper arm; 18:17 Follow up: IV Status: Completed infusion ap3 16:07 Drug: NS 0.9% IV (30 ml/kg) 30 ml/kg IV at bolus once; Sepsis Protocol; to be given as ap3 a bolus over 90 minutes Route: IV; Rate: bolus; Site: left upper arm; 17:56 Drug: HYDROmorphone IVP 0.5 mg IVP once Route: IVP; Site: left upper arm; ap3 19:02 Follow up: Response: No adverse reaction; Pain is decreased ap3 17:56 Drug: Ondansetron IVP 4 mg IVP once; over 2 minutes Route: IVP; Site: left upper arm; ap3 19:03 Follow up: Response: No adverse reaction ap3 18:55 Drug: vancoMYCIN IVPB 1 grams IVPB once over 2 hrs Route: IVPB; Infused Over: 2 hrs; ap3 Site: left upper arm; 20:53 Follow up: Response: No adverse reaction; IV Status: Completed infusion; IV Intake: ay 250ml 20:52 Drug: tranexamic acid 1 application Topical once; will soak CLING in TXA, PACK IN ay VAGINAL VAULT Route: Topical; Site: affected area; 20:53 Drug: Meropenem IV 1 grams IV at per protocol once; (mix in NS 100 mL) Route: IV; Rate: ay per protocol; Site: left antecubital; 21:19 Drug: Solu-CORTEF IVP 100 mg IVP once Route: IVP; Site: right hand; ay 21:20 Drug: Magnesium Sulfate IVPB 2 grams IVPB once over 2 hrs Route: IVPB; Infused Over: 2 ay hrs; Site: right hand; 21:20 Drug: NS 0.9% IV 1000 ml IV at 1000 ml once; to be given as a bolus over 60 minutes ay Route: IV; Rate: 1000 ml; Site: right hand; Disposition Summary: 06/17/24 21:54 Hospitalization Ordered Notes: Hospitalization Status: Inpatient Admission erika Provider: Merlyn Jaquez cha Condition: Fair(06/17/24 21:54) erika Problem: new(06/17/24 21:54) erika Symptoms: have improved(06/17/24 21:54) erika Bed/Room Type: Standard erika Location: Telemetry/MedSurg (Inpatient)(06/18/24 15:53) [facility] Room Assignment: [facility](06/18/24 15:53) [facility] Diagnosis - Hypotension, unspecified - RESOLVED erika - Malignant neoplasm of uterus, part unspecified - CERVIX , LARGE , METASTATIC erika - Acute cystitis - EMPHASEMATOUS(06/17/24 21:54) erika - Abnormal uterine and vaginal bleeding, unspecified - SECONDARY TO erika MALIGNANT(06/17/24 21:54) - Altered mental status, unspecified(06/17/24 21:54) erika - Anemia, unspecified(06/17/24 21:54) erika - Hypomagnesemia(06/17/24 21:54) erika - Abdominal tenderness - FLUID COLLECTION 4.7CM FLUID AND GAS SUPERIOR BLADER DOMEX erika 4.8 CM X 2.9 CM, SUPRAPUBIC SPACE OR BLADDER WALL Forms: - Medication Reconciliation Form erika - SBAR form erika - Leadership Thank You Letter erika Signatures: Dispatcher [employer] Wilber Caldera MD MD cha Prokisch, Amanda RN RN marcos3 Thelma Hewitt RN RN ad3 Mariella Moran, RN RN maya7 Peggy Francois 1 Sandra Bautista 6 Celena Garay RN TESSIE gonzalez Corrections: (The following items were deleted from the chart) 13:27 13:27 Head C Spine Cap Wo Con+CT.RAD.BRZ ordered. EDMS EDMS 21:45 18:14 TO [facility] , TELE erika erika :45 18:14 [facility] erika erika :45 18:14 Higher level of care erika erika 21:45 18:14 Serious erika erika 21:45 18:14 an acute exacerbation erika erika 21:45 18:14 have worsened erika erika 21:45 18:14 Acute cystitis - EMPHYSEMATOUS erika erika 21:45 18:14 Abdominal pain, unspecified erika erika 21:45 18:14 Malignant neoplasm of cervix uteri, unspecified - UTERINE , LARGE erika erika 21:45 18:14 Abnormal uterine and vaginal bleeding, unspecified - SECONDARY TO CERVICAL / erika UTERINE MALIGNANCY erika :45 18:14 Altered mental status, unspecified erika erika 21:45 18:14 Hypomagnesemia erika erika 21:45 18:14 Anemia, unspecified erika erika 22:36 21:54 Telemetry/MedSurg (Inpatient) erika rv1 22:36 21:54 erika rv1 22:36 22:36 [facility] ER HOLD rv1 lg3 22:36 22:36 ERHOLD- rv1 lg3 06/18 15:53 02 22:36 [facility] ER HOLD lg3 bc6 06/18 15:53 02 22:36 ERHOLD- lg3 bc6
--- NOTE | 2024-06-17 18:14 | ER ---
Nurse's Notes [facility] Name: Christa Jackson Age: 69 yrs Sex: Female : 1955 Arrival Date: 06/17/2024 Time: 13:16 Bed 14 Private MD: Diagnosis: Hypotension, unspecified-RESOLVED;Malignant neoplasm of uterus, part unspecified-CERVIX , LARGE , METASTATIC;Acute cystitis-EMPHASEMATOUS;Abnormal uterine and vaginal bleeding, unspecified-SECONDARY TO MALIGNANT;Altered mental status, unspecified;Anemia, unspecified;Hypomagnesemia;Abdominal tenderness-FLUID COLLECTION 4.7CM FLUID AND GAS SUPERIOR BLADER DOMEX 4.8 CM X 2.9 CM, SUPRAPUBIC SPACE OR BLADDER WALL Presentation: 06/17 13:25 Chief complaint: EMS states: patient was just discharged from the hospital yesterday bm7 for tx of cervical cancer. family states pt became confused last night around 2200. they brought her to her follow up at the cancer center and she was severely hypotensive. Coronavirus screen: Vaccine status: Client denies travel out of the [place] in the last 14 days. Ebola Screen: Patient negative for fever greater than or equal to 101.5 degrees Fahrenheit, and additional compatible Ebola Virus Disease symptoms Patient denies exposure to infectious person. Patient denies travel to an Ebola-affected area in the 21 days before illness onset. Initial Sepsis Screen: Does the patient meet any 2 criteria? HR > 90 bpm. Does the patient have a suspected source of infection? No. Patient's initial sepsis screen is negative. Risk Assessment: Do you want to hurt yourself or someone else? Patient reports no desire to harm self or others. Onset of symptoms was June 17, 2024. Care prior to arrival: Medication(s) given: Normal saline infusion, 100 ml IV initiated. 22 GA, in the right hand, Glucose check: 167. 13:25 Method Of Arrival: EMS: [facility] bm7 13:25 Acuity: NOMAN 3 bm7 Triage Assessment: 13:31 General: Appears in no apparent distress. uncomfortable, Behavior is drowsy. Pain: bm7 Complains of pain in pelvis. EENT: No deficits noted. No signs and/or symptoms were reported regarding the EENT system. Neuro: Level of Consciousness is awake, alert, confused, Oriented to person, Moves all extremities. Facial symmetry appears normal, Pupils are PERRLA. Cardiovascular: Rhythm is sinus tachycardia. Respiratory: No deficits noted. GI: No deficits noted. No signs and/or symptoms were reported involving the gastrointestinal system. : No deficits noted. No signs and/or symptoms were reported regarding the genitourinary system. Derm: No deficits noted. No signs and/or symptoms reported regarding the dermatologic system. Musculoskeletal: No deficits noted. No signs and/or symptoms reported regarding the musculoskeletal system. Historical: - Allergies: 13:31 No Known Allergies; bm7 - Home Meds: 13:31 atorvastatin 40 mg Oral tab 1 tab once daily [Active]; carvedilol 3.125 mg Oral tab 1 bm7 tab 2 times per day [Active]; levocetirizine 5 mg Oral tab 1 tab once daily [Active]; metformin 500 mg Oral tab 2 tabs 2 times per day [Active]; prednisone 5 mg Oral tab 3 tab once daily [Active]; Vitamin D2 50 Oral cap 1 cap once wkly [Active]; paroxetine HCl 20 mg Oral tab 1 tab once daily [Active]; - PMHx: 13:31 Cervical cancer (stage 3) (Hypertension); Diabetes - IDDM; Depression; Hypertension; bm7 High Cholesterol; - PSHx: 13:31 hernia repair; bm7 - Immunization history:: Adult Immunizations unknown. - Infectious Disease History:: Denies. - Social history:: Smoking status: Patient/guardian denies using. Assessment: 13:45 Neuro: Reports daughter reports patient's last known well was approx 1300 on 06/16/24. bm7 The patient then slept most of the day, and woke up at 2200 on 06/16/24 "more altered than normal".. Vital Signs: 13:25 BP 113 / 70 LA Supine (auto/reg); Pulse 110; Resp 20; Temp 98.4(O); Pulse Ox 97% on R/A;bm7 14:29 BP 139 / 90; Pulse 89; Resp 17; Pulse Ox 100% on R/A; ap3 14:29 Weight 91.17 kg; ap3 16:07 BP 113 / 73; Pulse 89; ap3 17:03 BP 160 / 91; Pulse 89; Resp 19; ap3 18:18 BP 101 / 74; Pulse 99; Resp 17; ap3 ED Course: 13:24 Patient arrived in ED. bm7 13:24 Wilber Ascencio MD is Attending Physician. [facility] 13:31 Triage completed. bm7 13:31 Arm band placed on left wrist. bm7 13:39 Mariella Moran, RN is Primary Nurse. bm7 13:48 Head C Spine Mpr Wo Con In Process Unspecified. EDMS 13:48 Chest Abd Pelvis Wo Con In Process Unspecified. EDMS 13:58 XRAY Chest (1 view) In Process Unspecified. EDMS 14:12 Patient has correct armband on for positive identification. Placed in gown. Bed in low ap3 position. Call light in reach. Side rails up X2. Client placed on continuous cardiac and pulse oximetry monitoring. NIBP monitoring applied. satellite project site monitor on. Pulse ox on. NIBP on. Door closed. Noise minimized. 14:12 EKG done, by ED staff, reviewed by Wilber Ascencio MD. ap3 15:04 Missed attempt(s): 24 gauge in left antecubital area. Bleeding controlled, band aid bc6 applied, catheter tip intact. 17:49 initiated transfer to [facility]. bd 18:26 Pam with [facility] transfer [place] denied transfer for capacity. bd 18:35 initiated transfer to [facility]. bd 18:40 pt denied at [facility] due to all hospitals being on transfer closure. bd 18:51 initiated transfer to [facility]. bd 19:58 [facility] declined due to capacity. rv1 20:55 Dr. Ascencio initiated transfer with Jenifer at [facility]. rv1 21:46 Merlyn Jaquez MD is Hospitalizing Provider. erika Administered Medications: 16:05 Drug: Famotidine IVP 20 mg IVP once; dilute with 10 mL 0.9% NaCl; give over 2 minutes ap3 Route: IVP; Site: right upper arm; 18:17 Follow up: Response: No adverse reaction ap3 16:06 Drug: Rocephin IV 1 grams IV at per protocol once; Given slow IV push per pharmacy ap3 instructions Route: IV; Rate: per protocol; Site: left upper arm; 18:17 Follow up: IV Status: Completed infusion ap3 16:07 Drug: NS 0.9% IV (30 ml/kg) 30 ml/kg IV at bolus once; Sepsis Protocol; to be given as ap3 a bolus over 90 minutes Route: IV; Rate: bolus; Site: left upper arm; 17:56 Drug: HYDROmorphone IVP 0.5 mg IVP once Route: IVP; Site: left upper arm; ap3 19:02 Follow up: Response: No adverse reaction; Pain is decreased ap3 17:56 Drug: Ondansetron IVP 4 mg IVP once; over 2 minutes Route: IVP; Site: left upper arm; ap3 19:03 Follow up: Response: No adverse reaction ap3 18:55 Drug: vancoMYCIN IVPB 1 grams IVPB once over 2 hrs Route: IVPB; Infused Over: 2 hrs; ap3 Site: left upper arm; 20:53 Follow up: Response: No adverse reaction; IV Status: Completed infusion; IV Intake: ay 250ml 20:52 Drug: tranexamic acid 1 application Topical once; will soak CLING in TXA, PACK IN ay VAGINAL VAULT Route: Topical; Site: affected area; 20:53 Drug: Meropenem IV 1 grams IV at per protocol once; (mix in NS 100 mL) Route: IV; Rate: ay per protocol; Site: left antecubital; 21:19 Drug: Solu-CORTEF IVP 100 mg IVP once Route: IVP; Site: right hand; ay 21:20 Drug: Magnesium Sulfate IVPB 2 grams IVPB once over 2 hrs Route: IVPB; Infused Over: 2 ay hrs; Site: right hand; 21:20 Drug: NS 0.9% IV 1000 ml IV at 1000 ml once; to be given as a bolus over 60 minutes ay Route: IV; Rate: 1000 ml; Site: right hand; Intake: 20:53 IV: 250ml; Total: 250ml. ay Outcome: 18:14 ER care complete, transfer ordered by . erika 21:54 Decision to Hospitalize by Provider. erika 06/18 17:27 Patient left the ED. iw Signatures: Dispatcher [employer] EDMS Ariane Vega Corey, MD MD cha Williams, Irene RN Holly Osborne RN RN ap3 Mariella Moran RN RN maya7 Peggy Francois rv1 Sandra Bautista 6 [place], Awudu, RN RN ay
[2024-06-17] MEDS ORDERED: Meropenem 1000 MG/VIAL IV ONE (18:36)
[2024-06-17] MEDS ORDERED: Magnesium Sulfate 2gm IVPB 2 G/50 ML BAG IV ONE (18:36)
[2024-06-17] MEDS ORDERED: NA CHLORIDE 0.9% 250 ML ONE (18:36)
[2024-06-17] MEDS ORDERED: VANCOMYCIN 1 GM/VIAL ONE (18:36)
[2024-06-17] MEDS ORDERED: NA CHLORIDE 0.9% 1,000 ML ONE (21:06)
[2024-06-17] MEDS ORDERED: HYDROCORTISONE SUC 100 MG INJ ONE (21:06)
[2024-06-17] MEDS ORDERED: ACETAMINOPHEN 325 MG TABLET PO PRN (23:13)
[2024-06-17] MEDS: NA CHLORIDE 0.9% 1,000 ML IV SCH (23:45)
[2024-06-18] MEDS ORDERED: ACETAMINOPHEN 325 MG TABLET ONE (00:08)
[2024-06-18] MEDS ORDERED: MORPHINE 2 MG/ML SYR ONE ×3 (00:24→11:09)
[2024-06-18] MEDS: MORPHINE 2 MG/ML SYR IM PRN (00:50)
[2024-06-18] MEDS ORDERED: NA CHLORIDE 0.9% 1,000 ML ONE ×2 (00:54→08:44)
[2024-06-18] MEDS ORDERED: PIPER TAZO 2.25 GM in NA CHLORIDE 0.9% 50 ML IV SCH (01:00)
[2024-06-18] MEDS: PIPER TAZO 3.375 GM in NA CHLORIDE 0.9% 100 ML IV SCH (01:00)
[2024-06-18] MEDS ORDERED: PIPERACIL/TAZO 3.375 GM VIAL IV ONE ×2 (03:02→08:44)
[2024-06-18] MEDS ORDERED: NA CHLORIDE 0.9% 100 ML ONE ×2 (03:02→08:43)
[2024-06-18] MEDS: ENOXAPARIN 40 MG/0.4 ML SQ SCH (07:27)
[2024-06-18] MEDS ORDERED: D10W 125 ML IV PRN (07:41)
[2024-06-18] MEDS ORDERED: GLUCAGON 1 MG/VIAL IM PRN (07:41)
--- NOTE | 2024-06-18 07:41 | P.HP ---
Certification for Inpatient Patient admitted to: Inpatient With expected LOS: >2 Midnights Practitioner: I am a practitioner with admitting privileges, knowledge of patient current condition, hospital course, and medical plan of care. Services: Services provided to patient in accordance with Admission requirements found in Title 42 Section 412.3 of the Code of Federal Regulations Patient History Date of Service: 06/18/24 Reason for admission: blood pressure issues, cervical cancer History of Present Illness: 69-year-old female with history of advanced uterine and cervical cancer presented with complaints of blood pressure issues and increased confusion. Patient reports diagnosis of cervical cancer stage III. States that her oncologist told her she is not a good candidate for treatment. Daughter at bedside. In the emergency room a CT scan showed a new small collection of fluid and gas just superior to the bladder dome measuring up to 4.8 cm as well as redemonstration of large mass centered on the cervix and lower uterine segment. Patient was to be transferred to higher level of care. At this time beds were not available patient is being admitted Allergies No Known Allergies Allergy (Unverified 09/23/15 17:27) Home Medications: Atorvastatin Calcium [Lipitor*] 10 mg PO BEDTIME 06/11/24 Bismuth Subsalicylate [Pepto-Bismol] 30 osyr PO DAILY PRN 06/11/24 Escitalopram Oxalate [Lexapro] 10 mg PO DAILY 06/11/24 Ferrous Sulfate [Iron] 325 mg PO DAILY 06/11/24 Fluconazole [Diflucan] 400 mg PO DAILY 06/11/24 Gabapentin 300 mg PO DAILY AFTER SUPPER 06/11/24 Hydromorphone [Dilaudid*] 1 mg PO Q4HR PRN 06/11/24 Hyoscyamine Sulfate [Oscimin Sl] 0.125 mg SL QIDP PRN 06/11/24 Levothyroxine Sodium 25 mcg PO DAILY 06/11/24 Linezolid [Zyvox*] 600 mg PO BID 06/11/24 Mecobalamin [B12 Active] 1,000 mg PO DAILY 06/11/24 Metformin HCl [Metformin ER Gastric] 1,000 mg PO BID 06/11/24 Ondansetron [Zofran (Odt)*] 8 mg PO Q8HR PRN 06/11/24 Smz./Tmp. [Bactrim Ds 800 MG/160 MG*] 2 mg PO BID 06/11/24 hydrOXYzine HCL [Atarax*] 25 mg PO DAILY PRN 06/11/24 Acidophilus/Bifido Longum [Lactobacillus Capsule] 16 mg PO BID 10 Days #20 tab 06/16/24 Ciprofloxacin HCl [Cipro 500 MG Tablet] 500 mg PO BID 10 Days #20 tab 06/16/24 Ensure Max Protein 330 ml PO BID can 06/16/24 Linezolid [Zyvox] 600 mg PO BID 10 Days #20 tab 06/16/24 Ondansetron [Zofran (Odt)*] 8 mg PO Q8HP PRN tab 06/16/24 - Past Medical/Surgical History Diabetic: Yes -: cervical cancer with a mass -: hernia -: diabetes-no insulin -: hypotension -: abdominal pain -: hernia repair 15 years ago - Social History Alcohol use: No CD- Drugs: No Caffeine use: No Review of Systems 10-point ROS is otherwise unremarkable Physical Examination - Vital Signs Temperature: 96.9 F Blood Pressure: 156/82 Pulse: 83 Respirations: 18 Pulse Ox (%): 100 - Physical Exam General: In no apparent distress HEENT: Atraumatic, Normocephalic Respiratory: Clear to auscultation bilaterally, Normal air movement Cardiovascular: Regular rate/rhythm, Normal S1 S2 Gastrointestinal: Tenderness Neurological: Other (exhibits some signs of confusion/dementia) - Studies Laboratory Data (last 24 hrs) 06/17/24 06/17/24 06/17/24 15:48 15:48 15:48 WBC 10.80 Hgb 10.3 L Hct 30.5 L Plt Count 356 PT 14.5 H INR 1.39 Sodium 132 L Potassium 4.7 BUN 12 Creatinine 1.75 H Glucose 108 H Magnesium 1.1 L Total Bilirubin 0.5 AST 39 H ALT < 14 Alkaline Phosphatase 120 H Lipase 11 L Microbiology Data (last 24 hrs): 06/17/24 15:30 Blood - Blood Anaerobic Blood Culture - Final Assessment and Plan - Problems (Diagnosis) (1) Hypotension Current Visit: Yes Status: Acute (2) Cervical cancer Current Visit: No Status: Acute Qualifiers: - Plan 69-year-old female presents with abnormal blood pressure. Stage III cervical cancer Abnormal CT abdomen pelvis Hypotension Diabetes Hyperlipidemia Plan: Admit to medical floor IV Zosyn Surgical consultation As needed analgesics Consider palliative care hospice consultation Consider oncology consultation Fingerstick blood sugars sliding scale insulin - Advance Directives Does patient have a Living Will: No Does patient have a Durable POA for Healthcare: No
[2024-06-18 09:10] LABS: AST/SGOT 32 U/L (15-37); Albumin 1.4 g/dL (3.4-5.0); Albumin/Globulin Ratio 0.3 (1.1-1.8); Alkaline Phosphatase 98 U/L (45-117); Anion Gap 9.5 mEq/L (5.0-15.0); BUN Blood Urea Nitrogen 11 mg/dL (7-18); Bicarbonate 25 mEq/L (21-32); Bilirubin Total 0.3 mg/dL (0.2-1.0); Globulin 4.1 g/dL (2.3-3.5); Glomerular Filtration Rate 46 ml/min (=/>90); Glucose Level 117 mg/dL (74-106); Potassium 4.5 mEq/L (3.5-5.1); Protein, Total 5.5 g/dL (6.4-8.2); Sodium Level 134 mEq/L (136-145)
[2024-06-18 09:13] LABS: ALT/SGPT < 14 U/L (13-56)
[2024-06-18 09:14] LABS: Absolute Lymphocytes (CBC) 0.5 K/uL (0.7-4.9); Absolute Monocytes 0.3 K/uL (0.1-1.3); Basophils % 0.5 % (0-1.3); Hematocrit 25.5 % (36.0-45.0); Hemoglobin 8.5 g/dL (12.0-15.0); Lymphocytes % 5.4 % (15.3-44.8); MCH 30.1 pg (27.0-35.0); MCHC 33.3 g/dL (32.0-36.0); MCV 90.5 fL (80-100); MPV 6.8 fL (7.6-11.3); Neutrophils % 91.1 % (41.7-73.7); Nucleated Red Blood Cells % 0.1 % (0-0); Platelets 297 thou/uL (152-406); RBC Red Blood Cell Count 2.81 M/uL (3.86-4.86)
[2024-06-18 09:50] LABS: Specific Gravity 1.015 (1.005-1.030); Sqamous Epithelial None Seen /HPF (None Seen); Urine Bacteria None Seen /HPF (<20); Urine Bilirubin NEGATIVE (Negative); Urine Blood 1+ (Negative); Urine Clarity Clear (Clear); Urine Color Light-Yellow (Yellow); Urine Culture Reflex Order NOT NEEDED; Urine Glucose NEGATIVE (Negative); Urine Ketones NEGATIVE (Negative); Urine Microscopic Reflex YN ORDER UMIC; Urine Mucus Slight /HPF (None Seen); Urine Nitrite NEGATIVE (Negative); Urine Protein 1+ (Negative); Urine Urobilinogen Normal (Normal); Urine WBC <5 /HPF (<5); Urine pH 5.5 (5.0-7.0)
[2024-06-18 10:23] LABS: White Blood Cell Scan OK (OK)
[2024-06-18 10:24] LABS: Blood Morphology Comment NOT SEEN (NOT SEEN); Platelet Estimate ADEQ; Platelets Clumped FEW
--- NOTE | 2024-06-18 11:28 | EKG ---
Test Date: 2024-06-17 Test Time: 14:09:26 Queen Producer: ALP MEASUREMENT RESULTS: Intervals: Rate: 97 AR: 140 QRSD: 66 QT: 356 QTc: 452 [place]: P: -18 AR: 140 QRS: 8 T: 21 INTERPRETIVE STATEMENTS: Normal sinus rhythm Cannot rule out Anterior infarct, age undetermined Abnormal ECG Compared to ECG 06/11/2024 15:11:15 Atrial flutter no longer present Myocardial infarct finding still present Electronically Signed On 06-18-24 11:25:59 DOUGH CUTTER by Delvin Romeo
[2024-06-18] MEDS: INSULIN REGULAR (HUMAN) 100 UNIT/ML SQ SCH (11:30)
[2024-06-18 12:38] VITALS: BMI 36.9
[2024-06-18] MEDS ORDERED: HYDROCODONE/APAP 10/325 TAB PO PRN (13:25)
[2024-06-18] MEDS ORDERED: MORPHINE 4 MG/ML SYR ONE (14:12)
[2024-06-18] MEDS: MORPHINE 4 MG/ML SYR IV PRN (14:20)
--- NOTE | 2024-06-18 15:20 | CON ---
Please note, I recently saw the patient and full detail of her medical history is documented in that note. The patient is a 69-year-old female who came to the emergency room, Dr. Matias office for hypotension and weakness. The patient was in the hospital and discharged recently. Patient has advanced cervic al cancer and has bleeding off and on. The patient was being medically optimized for treatment of th e cancer with chemotherapy. However, the patient medically is not stable for that and she is requiri ng multiple transfusions. Her prognosis is very poor. She is not a surgical candidate and she would not tolerate chemotherapy in this condition, so detailed discussion was had from the primary team as well as myself as well as Dr. Matias regarding consideration for hospice and palliative care. All o f the patient's and family questions were answered and they have agreed to proceed at this time with hospice care. All of the diagnostic data including the lab and CAT scan was reviewed in detail and a t this time, we will support the family and patient's decision. I have asked the polygraph technician to come sp eak to the family. As per my point of view, the patient can eat whatever she wants at this time, we will keep her as comfortable as possible. RADHA/JOHN Voice ID: [id number] Report ID: [id number]
[2024-06-18] MEDS ORDERED: ONDANSETRON 4 MG (ODT) TAB PO PRN (18:08)
[2024-06-18] MEDS ORDERED: BISMUTH SUBSALICYL 262MG/15ML-240 ML BTL PO PRN (18:08)
[2024-06-18] MEDS ORDERED: HYOSCYAMINE SULFATE 0.125 MG SL PRN (18:08)
[2024-06-18] MEDS ORDERED: hydrOXYzine HCL 25 MG TAB PO PRN (18:08)
[2024-06-18] MEDS ORDERED: HYOSCYAMINE SULF 0.125 MG TAB PO PRN (18:28)
--- NOTE | 2024-06-18 18:28 | P.PN ---
Date of Service: 06/18/24 Patient seen and examined. She is complaining of pelvic pain, 10/10 in intensity. Mays catheter in place. Patient with advanced cervical cancer. Case discussed with oncology Dr. Matias who recommended hospice. Patient and family agreed to hospice. Social service consulted for hospice arrangement. Family wanted IV fluid continued. Continue analgesics-IV morphine and oral Dilaudid for pain. Continue antibiotics for now.
[2024-06-18] MEDS ORDERED: HYDROMORPHONE ORAL 2 MG TAB PO PRN (18:30)
[2024-06-18] MEDS: ATORVASTATIN 10 MG TAB PO SCH (21:00)
[2024-06-18] MEDS: ENSURE MAX PROTEIN 330 ML LIQUID PO SCH (21:00)
[2024-06-19] MEDS: LEVOTHYROXINE SOD 0.025 MG TAB PO SCH (06:04)
[2024-06-19] MEDS: FLUCONAZOLE 100 MG TAB PO SCH (08:47)
[2024-06-19] MEDS: Mecobalamin [B12 Active] 1,000 MCG Tab.Chew *PT OWN MED PO SCH (08:48)
[2024-06-19] MEDS: FERROUS SULFATE 325 MG TAB PO SCH (08:48)
[2024-06-19] MEDS: ESCITALOPRAM 20 MG TAB PO SCH (08:48)
[2024-06-19] MEDS ORDERED: FLUCONAZOLE 200 MG PO SCH (09:00)
[2024-06-19] MEDS ORDERED: HOME MED 1 EA UNK (Escitalopram Oxalate [Lexapro] 10 MG Tablet) PO SCH (09:00)
[2024-06-19] MEDS: GABAPENTIN 300 MG CAP PO SCH (16:16)
--- NOTE | 2024-06-19 18:47 | P.PN ---
Subjective Date of Service: 06/19/24 Chief Complaint: blood pressure issues, cervical cancer Family report patient had only slight vaginal bleeding. Patient was resting comfortably, pain appeared to be controlled. No issues overnight. Physical Examination - Vital Signs Temperature: 97.5 F Blood Pressure: 138/72 Pulse: 80 Respirations: 15 Pulse Ox (%): 100 - Studies Microbiology Data (last 24 hrs): 06/17/24 15:30 Blood - Blood Anaerobic Blood Culture - Final Assessment And Plan - Plan Physical examination General: Alert and oriented x3, NAD. HEENT: Conjunctiva not pale, anicteric sclera Neck: Supple, no elevated JVD Heart: Heart sounds 1 and 2 normal, regular rhythm, normal rate, no pedal edema Lungs: Clear to auscultation bilaterally, adequate breath sounds bilaterally, no rhonchi or crackles. Abdomen: Soft, nondistended, nontender, normal bowel sounds. Extremities: No tenderness, no deformity Skin: Normal skin turgor, no rash, no nodules or ulcers. Neuro: No focal motor deficit. Normal speech. Psychiatry: Normal mood, no agitation. Diagnosis Advanced cervical cancer Suspected pelvic abscess Diabetes Hyperlipidemia Plan: Patient with advanced cervical cancer. Case discussed with oncology Dr. Matias who at this point recommend hospice. Patient and family agreed to hospice. Patient opted for DNR. She was accepted consulted for arrangement for home with hospice Pain management-IV morphine and oral hydromorphone Continue IV Zosyn General Surgery Dr. Owens input appreciated. Diet as tolerated.
[2024-06-20 08:04] VITALS: O2SAT 99
--- NOTE | 2024-06-20 12:13 | P.DS ---
Admission Date: 06/17/24 Discharge Date: 06/20/24 Disposition: HOSPICE-HOME Reason for Admission: blood pressure issues, cervical cancer Brief History of Present Illness: 69-year-old female with history of advanced uterine and cervical cancer presented with complaints of blood pressure issues and increased confusion. Patient has a diagnosis of cervical cancer. States that her oncologist told her she is not a good candidate for treatment. Daughter at bedside. In the emergency room a CT scan showed a new small collection of fluid and gas just superior to the bladder dome measuring up to 4.8 cm as well as redemonstration of large mass centered on the cervix and lower uterine segment. Patient was to be transferred to higher level of care. At this time beds were not available patient is being admitted. Hospital Course: Diagnosis Advanced cervical cancer Suspected pelvic abscess Diabetes Hyperlipidemia Patient admitted to the medical floor Patient with advanced cervical cancer. Case discussed with oncology Dr. Matias who at this point recommend hospice. Patient and family agreed to hospice and patient made DNR Her pain was managed with oral hydromorphone and IV morphine. Daughter mentioned patient has poor oral intake and complains of pelvic pain even with swallowing so she requested for alternate route for pain medications. Patient has been accepted to home hospice She is discharged with fentanyl patch and sublingual morphine as needed for pain. General Surgery Dr. Huber evaluated the patient. Vital Signs/Physical Exam: Temp Pulse Resp BP Pulse Ox 97.6 F 81 18 131/73 99 06/20/24 08:00 06/20/24 08:00 06/20/24 08:06 06/20/24 08:00 06/20/24 08:06 General: In no apparent distress HEENT: Mucous membr. moist/pink Neck: JVD not distended Respiratory: Clear to auscultation bilaterally, Normal air movement Cardiovascular: No edema, Regular rate/rhythm, Normal S1 S2 Gastrointestinal: Normal bowel sounds, Non-distended Musculoskeletal: No swelling Laboratory Data at Discharge: WBC 8.80 thou/uL (4.3-10.9) 06/18/24 08:41 Hgb 8.5 g/dL (12.0-15.0) L D 06/18/24 08:41 Hct 25.5 % (36.0-45.0) L 06/18/24 08:41 Plt Count 297 thou/uL (152-406) 06/18/24 08:41 PT 14.5 SECONDS (9.4-12.5) H 06/17/24 15:48 INR 1.39 06/17/24 15:48 Sodium 134 mEq/L (136-145) L 06/18/24 08:41 Potassium 4.5 mEq/L (3.5-5.1) 06/18/24 08:41 BUN 11 mg/dL (7-18) 06/18/24 08:41 Creatinine 1.26 mg/dL (0.55-1.02) H 06/18/24 08:41 Glucose 117 mg/dL (74-106) H 06/18/24 08:41 Magnesium 1.1 mg/dL (1.6-2.4) L 06/17/24 15:48 Total Bilirubin 0.3 mg/dL (0.2-1.0) 06/18/24 08:41 AST 32 U/L (15-37) 06/18/24 08:41 ALT < 14 U/L (13-56) 06/18/24 08:41 Alkaline Phosphatase 98 U/L (45-117) 06/18/24 08:41 Lipase 11 U/L (13-75) L 06/17/24 15:48 Home Medications: Atorvastatin Calcium [Lipitor*] 10 mg PO BEDTIME 06/11/24 Bismuth Subsalicylate [Pepto-Bismol] 30 osyr PO DAILY PRN 06/11/24 Escitalopram Oxalate [Lexapro] 10 mg PO DAILY 06/11/24 Ferrous Sulfate [Iron] 325 mg PO DAILY 06/11/24 Fluconazole [Diflucan] 400 mg PO DAILY 06/11/24 Gabapentin 300 mg PO DAILY AFTER SUPPER 06/11/24 Hyoscyamine Sulfate [Oscimin Sl] 0.125 mg SL QIDP PRN 06/11/24 Levothyroxine Sodium 25 mcg PO DAILY 06/11/24 Mecobalamin [B12 Active] 1,000 mg PO DAILY 06/11/24 hydrOXYzine HCL [Atarax*] 25 mg PO DAILY PRN 06/11/24 Ensure Max Protein 330 ml PO BID can 06/16/24 Ondansetron [Zofran (Odt)*] 8 mg PO Q8HP PRN tab 06/16/24 Morphine Sulfate 1 ml PO Q4HR PRN #30 ml 06/20/24 fentaNYL [Fentanyl] 25 mcg TD Q72H #4 patch 06/20/24 New Medications: Morphine Sulfate 1 ml PO Q4HR PRN #30 ml PRN Reason: Pain fentaNYL [Fentanyl] 25 mcg TD Q72H #4 patch Diet: Regular Activity: Fall precautions Followup: Colten Ramos DO [Primary Care Provider] - Time spent managing pt's care (in minutes): 35
[2024-06-20 12:41] VITALS: BP 147/81; TEMP 98.2
== END 2024-06-20 13:30 | disposition hospice, home (50) | DRG 755 ==
LOC: ER 13:16 → ERHOLD 23:13 → 4TH 06-18 17:01
PROVIDERS: ADMIT Internal Medicine; ATTEND Internal Medicine
DX: C53.9 Malignant neoplasm of cervix uteri, unspecified (principal); N30.00 Acute cystitis without hematuria; N73.9 Female pelvic inflammatory disease, unspecified; E11.9 Type 2 diabetes mellitus without complications; I10 Essential (primary) hypertension; E78.00 Pure hypercholesterolemia, unspecified; E66.9 Obesity, unspecified; D64.9 Anemia, unspecified; E83.42 Hypomagnesemia; N93.9 Abnormal uterine and vaginal bleeding, unspecified; I95.9 Hypotension, unspecified; F03.90 Unspecified dementia, unspecified severity, without behavioral disturbance, psychotic disturbance, mood disturbance, and anxiety; Z51.5 Encounter for palliative care; Z66 Do not resuscitate; Z68.36 Body mass index [BMI] 36.0-36.9, adult; Z79.52 Long term (current) use of systemic steroids; Z79.84 Long term (current) use of oral hypoglycemic drugs; Z79.02 Long term (current) use of antithrombotics/antiplatelets; Z79.899 Other long term (current) drug therapy; Z79.890 Hormone replacement therapy
CPT/HCPCS: 36415; 70450; 71045; 71250; 72125; 74176; 80048; 80053; 80076; 81001; 82947; 83605; 83690; 83735; 83880; 84484; 85025; 85610; 87040; 93005; 99285; J0696; J1171; J1720; J2185; J2270; J2405; J2543; J3475; J7030; J7050